=== PATIENT | female | born 1985 | race Caucasian/White ===

== ENCOUNTER 2017-04-17 23:22 | Emergency (ER) | payer MEDICARE, MEDICAID ==
[~2017-04-17] VITALS: Ht 172.7 cm; Wt 90.7 kg
[~2017-04-17 23:22] MED LIST: LORazepam INJ 2 MG/ML (ATIVAN) VIAL ONE
--- OUTSIDE RECORDS SUMMARY | 2017-04-17 23:28 | XMS REPORT ---
Author Author Freeman Bragg [facility] Address [address] [id number] Care Team Providers Care Electrical Cad Designer Name Role Phone Melissa Bragghan Unavailable PROBLEMS Unknown Problems ALLERGIES Unknown Allergies SOCIAL HISTORY No smoking Hx information available PLAN OF CARE VITAL SIGNS MEDICATIONS Medication Instructions Dosage Frequency Start Date End Date Duration Status Hydrocodone-Acetaminophen 5-325 MG Orally NEEDED 1 tablet Active Ibuprofen 800 MG Orally Three times a day 1 tablet 8h Active Lamotrigine 200 MG Orally Three times daily 1 tablet Active Proventil HFA 108 (90 Base) MCG/ACT Inhalation NEEDED 2 puffs as needed Active Betamethasone Dipropionate 0.05 % Externally Once a day 1 application to affected area 24h Active Cephalexin 500 MG Orally Three times daily 1 capsule Active Baclofen 20 MG Orally Three times daily 1 tablet with food or milk Active Omeprazole 40 MG Orally Once a day 1 capsule 24h Active RESULTS No Results PROCEDURES Procedure Date Ordered Related Diagnosis Body Site No Show Charge November 18, 2016 IMMUNIZATIONS No Known Immunizations
--- OUTSIDE RECORDS SUMMARY | 2017-04-17 23:28 | XMS REPORT ---
Author Author Naomi Roberson Organization [facility] Address [address] [place] [id number] Care Team Providers Care Networks Software Consultant Name Role Phone Naomi Roberson PCP Unavailable Allergies and Adverse Reactions Name Reaction Notes Aspirin Morphine Sulfate Tylenol-Codeine #3 Plan of Treatment Planned Activity Comments Planned Date Planned Time Plan/Goal [facility] 04/28/2016 12:00 AM ALPHA 1 ANTITRYPSIN 04/28/2016 12:00 AM AMYLASE. 04/28/2016 12:00 AM PINKY W/TITER 04/28/2016 12:00 AM CERULOPLASMIN. 04/28/2016 12:00 AM IRON TOTAL 04/28/2016 12:00 AM IRON BINDING CAPACITY 04/28/2016 12:00 AM FERRITIN 04/28/2016 12:00 AM LIPASE. 04/28/2016 12:00 AM HEPATIC FUNCTION PANEL 04/28/2016 12:00 AM HEPATITIS PANEL. 04/28/2016 12:00 AM HEPATITIS BE AB 04/28/2016 12:00 AM Hepatitis B virus core antibody assay 04/28/2016 12:00 AM HBV genotype 04/28/2016 12:00 AM HBV genotype 04/28/2016 12:00 AM Anti-mitochondrial antibody titer 04/28/2016 12:00 AM Serum protein electrophoresis and immunofixation electrophoresis 2015 12:00 AM Medications Active Name Start Date Estimated Completion Date SIG Comments Keppra 100 mg/mL oral solution take 1 milliliter by oral route 4 times a day Ambien 10 mg oral tablet take 1 tablet by oral route daily as needed Lidocaine Viscous 2 % mucous membrane solution use as directed by oral route every 3 hours Proventil HFA 90 mcg/actuation inhalation HFA aerosol inhaler inhale 2 puffs (180 mcg) by inhalation route every 6 hours as needed omeprazole 40 mg oral capsule,delayed release(DR/EC) 12/31/2015 12/25/2016 take 1 capsule by oral route daily for 90 days Proventil HFA 90 mcg/actuation inhalation HFA aerosol inhaler 04/17/2016 2 PUFFS EVERY 6 HOURS NEEDED ibuprofen 800 mg oral tablet 05/14/2016 take 1 tablet by oral route 3 times a day baclofen 10 mg oral tablet 07/16/2016 TAKE 1 TABLET BY ORAL ROUTE 4 TIMES A DAY NEEDED FOR 30 DAYS Lamictal 200 mg oral tablet 07/16/2016 take 1 tablet by oral route 3 times a day Bactrim DS 800-160 mg oral tablet 07/20/2016 07/27/2016 take 1 tablet by oral route every 12 hours for 7 days Name Start Date Expiration Date SIG Comments tizanidine 4 mg oral tablet take 1 tablet by oral route 3 times a day Latuda 40 mg oral tablet take 1 tablet (40 mg) by oral route once daily with food (at least 350 calories) gabapentin 300 mg oral capsule take 1 capsule by oral route 3 times a day Tigan 300 mg oral capsule take 1 capsule by oral route 3 times a day Viibryd 40 mg oral tablet take 1 tablet (40 mg) by oral route once daily with food zonisamide 100 mg oral capsule take 4 capsules by oral route daily hydroxyzine HCl 25 mg oral tablet take 1 tablet by oral route 4 times a day Vistaril 25 mg oral capsule take 2 capsules (50 mg) by oral route 4 times per day oxycodone 5 mg oral tablet 12/04/2015 01/03/2016 take 1 tablet by oral route daily as needed for 30 days diazepam 10 mg oral tablet 12/04/2015 01/03/2016 take 1 tablet (10 mg) by oral route 2 times per day for 30 days baclofen 10 mg oral tablet 03/30/2016 04/29/2016 take 1 tablet by oral route 4 times a day as needed for 30 days levofloxacin 500 mg oral tablet 04/16/2016 04/23/2016 take 1 tablet (500 mg) by oral route once daily for 7 days Bactrim DS 800-160 mg oral tablet 06/05/2016 06/12/2016 take 1 tablet by oral route every 12 hours for 7 days mupirocin 2 % topical ointment 06/24/2016 06/29/2016 apply a small amount to the affected area by topical route 3 times per day for 5 days Discontinued Name Start Date Discontinued Date SIG Comments hydrocodone-acetaminophen 10-325 mg oral tablet 12/04/2015 take 1 tablet by oral route every 6 hours as needed for pain Problem List Description Status Onset Chronic viral hepatitis B without delta agent and without coma Active 2015 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 04/16/2016 Vital Signs Date Time BP-Sys(mm[Hg] BP-Penelope(mm[Hg]) HR(bpm) RR(rpm) Temp WT HT HC BMI BSA BMI Percentile O2 Sat(%) 07/20/2016 1:47:00 PM 118 mmHg 78 mmHg 111 bpm 20 rpm 97.9 F 227 lbs 68 in 34.51 kg/m2 2.22 m2 99 % 06/24/2016 10:28:00 AM 106 mmHg 67 mmHg 87 bpm 20 rpm 97.9 F 230 lbs 68 in 34.971 kg/m 2.2373 m 99 % 06/05/2016 9:35:00 AM 122 mmHg 74 mmHg 114 bpm 22 rpm 98.2 F 230.5 lbs 68 in 35.05 kg/m2 2.24 m2 97 % 04/16/2016 9:51:00 AM 117 mmHg 75 mmHg 86 bpm 19 rpm 99.2 F 227 lbs 68 in 34.5149 kg/m 2.2226 m 97 % 01/08/2016 8:56:00 AM 110 mmHg 76 mmHg 90 bpm 16 rpm 99.3 F 232 lbs 68 in 35.28 kg/m2 2.25 m2 97 % 12/04/2015 3:32:00 PM 130 mmHg 80 mmHg 88 bpm 16 rpm 99.5 F 230.125 lbs 68 in 34.99 kg/m 2.2379 m 98 % Social History Name Description Comments Tobacco Current every day smoker Alcohol Light Disabled History of Procedures Date Ordered Description Order Status 12/04/2015 12:00 AM COMPREHEN METABOLIC PANEL Returned 12/04/2015 12:00 AM HEP B SURFACE ANTIBODY Returned 12/04/2015 12:00 AM HEPATITIS B SURFACE AG EIA Returned 12/04/2015 12:00 AM HEPATITIS B DNA AMP PROBE Returned 01/08/2016 12:00 AM HEPATITIS DELTA AGENT ANTBDY Returned 01/08/2016 12:00 AM HEPATITIS DELTA AGENT ANTBDY Returned 01/08/2016 12:00 AM DETECT AGENT NOS DNA AMP Returned 01/08/2016 12:00 AM HEPATITIS B DNA QUANT Returned 01/08/2016 12:00 AM ECHO EXAM OF ABDOMEN Returned 01/08/2016 12:00 AM X-RAY EXAM UNILAT RIBS/CHEST Returned 04/16/2016 12:00 AM GLYCOSYLATED HEMOGLOBIN TEST Returned 04/16/2016 12:00 AM RENAL FUNCTION PANEL Returned 04/28/2016 12:00 AM US EXAM ABDOM COMPLETE Returned Results Summary Data and Description Results 04/16/2016 2:52 PM GLUCOSE 122.0 mg/dLSODIUM 142.0 mmol/LPOTASSIUM 4.10 mmol/ LCHLORIDE 109.0 mmol/LCO2 25.0 mmol/LBUN 13.0 mg/dLCREATININE 0.70 mg/dLALBUMIN 4.10 g/dLCALCIUM 9.10 mg/dLPHOSPHORUS 2.70 mg/dLAGE 30 GFR NonAA 97 GFR AA 118 eGFR >60 mL/min/1.73meGFR AA* >60 HGB A1C 5.20 %Est Avg Glucose 102.5 mg/dL History Of Immunizations Not available. History of Past Illness Name Date of Onset Comments Epilepsy Head trauma bipolar Anxiety OCD Borderline personality disorder Depression Asthma Seizure disorder Hepatitis B Infection Chronic viral hepatitis B without delta agent and without coma 04/16/2016 Nonintractable generalized idiopathic epilepsy without status epilepticus 05/2015 Hepatitis B infection without delta agent without hepatic coma, unspecified chronicity Dec 04 2015 3:35PM Recurrent Seizure disorder Dec 04 2015 3:35PM Hepatitis B infection without delta agent without hepatic coma, unspecified chronicity Jan 08 2016 8:58AM Rib pain Jan 08 2016 8:58AM Chronic viral hepatitis B without delta agent and without coma Apr 16 2016 10: 02AM Nonintractable generalized idiopathic epilepsy without status epilepticus Apr 16 2016 10:02AM Hyperglycemia Apr 16 2016 10:02AM Hypokalemia Apr 16 2016 10:02AM Acute non-recurrent maxillary sinusitis Apr 16 2016 10:02AM Hepatitis B with hepatitis delta Apr 28 2016 3:39PM Cellulitis, abdominal wall Jun 05 2016 9:40AM Folliculitis Jun 24 2016 10:34AM Lump on neck Jun 24 2016 10:34AM Abscess Jul 20 2016 1:51PM Payers Insurance Name Company Name Plan Name Plan Number Policy Number Policy Group Number Start Date Medicare Part B [employer] [place] [id number] Wednesday, 2015 [facility] Plan of [id number] May History of Encounters Visit Date Visit Type Provider 07/20/2016 Office visit Naomi Roberson MD 06/24/2016 Office visit Naomi Roberson MD 06/05/2016 Office visit Naomi Roberson MD 04/16/[address] Dylan Morejon MD 01/08/2016 Office visit 01/08/[address] Dylan Morejon MD 12/04/2015 Office visit 12/04/[address] Dylan Morejon MD
--- OUTSIDE RECORDS SUMMARY | 2017-04-17 23:28 | XMS REPORT ---
Author Author Dylan Morejon [facility] Address [address] [place], [place] [id number] Care Team Providers Care Fuel Cell Engineer Name Role Phone Dylan Morejon PCP Allergies and Adverse Reactions Name Reaction Notes [...] electrophoresis and immunofixation electrophoresis 2015 12:00 AM US ABDOMINAL COMPLETE 04/28/2016 12:00 AM Medications Active Name Start Date Estimated Completion Date SIG Comments Lamictal 200 mg oral tablet take 1 tablet by oral route 3 times a day Keppra 100 mg/mL oral solution take 1 milliliter by oral route 4 times a day Ambien 10 mg oral tablet take 1 tablet by oral route daily as needed Lidocaine Viscous 2 % mucous membrane solution use as directed by oral route every 3 hours ibuprofen 800 mg oral tablet take 1 tablet by oral route 3 times a day Proventil HFA 90 mcg/actuation inhalation HFA aerosol inhaler inhale 2 puffs (180 mcg) by inhalation route every 6 hours as needed omeprazole 40 mg oral capsule,delayed release(DR/EC) 12/31/2015 12/25/2016 take 1 capsule by oral route daily for 90 days baclofen 10 mg oral tablet 03/30/2016 04/29/2016 take 1 tablet by oral route 4 times a day as needed for 30 days baclofen 10 mg oral tablet 04/02/2016 TAKE 1 TABLET BY ORAL ROUTE 4 TIMES A DAY NEEDED FOR 30 DAYS Proventil HFA 90 mcg/actuation inhalation HFA aerosol inhaler 04/17/2016 2 PUFFS EVERY 6 HOURS NEEDED Name Start Date Expiration Date SIG Comments [...] 2 times per day for 30 days levofloxacin 500 mg oral tablet 04/16/2016 04/23/2016 take 1 tablet (500 mg) by oral route once daily for 7 days Discontinued Name Start Date Discontinued Date [...] HC BMI BSA BMI Percentile O2 Sat(%) 04/16/2016 9:51:00 AM 117 mmHg 75 mmHg 86 bpm 19 rpm 99.2 F 227 lbs 68 in 34.51 kg/m2 2.22 m2 97 % 01/08/2016 8:56:00 AM 110 mmHg 76 mmHg 90 bpm 16 rpm 99.3 F 232 lbs 68 in 35.2751 kg/m 2.247 m 97 % 12/04/2015 3:32:00 PM 130 mmHg 80 mmHg 88 bpm 16 rpm 99.5 F 230.125 lbs 68 in 34.99 kg/m2 2.24 m2 98 % Social History Name Description Comments [...] 04/16/2016 12:00 AM RENAL FUNCTION PANEL Returned Results Summary Data and Description Results [...] with hepatitis delta Apr 28 2016 3:39PM Payers Insurance Name Company Name Plan Name Plan Number Policy Number Policy Group Number Start Date Medicare Part B [employer] [place] [id number] Wednesday, 2015 [facility] Plan of [id number] May History of Encounters Visit Date Visit Type Provider 04/16/[address] Dylan Morejon MD 01/08/2016 Office visit 01/08/[address] Dylan Morejon MD 12/04/2015 Office visit 12/04/[address] Dylan Morejon MD
--- OUTSIDE RECORDS SUMMARY | 2017-04-17 23:28 | XMS REPORT ---
Author Author Zahida Baxter [facility] Address [address] [place], [place] [id number] Care Team Providers Care Business Administration Program Chair Name Role Phone Zahida Baxter PCP Unavailable Allergies and Adverse Reactions Name [...] electrophoresis and immunofixation electrophoresis 2015 12:00 AM Polysomnography 09/15/2016 12:00 AM irregular nevi Medications Active Name Start Date Estimated Completion Date SIG Comments Ambien 10 mg oral tablet take 1 tablet by oral route daily as needed Lidocaine Viscous 2 % mucous membrane solution use as directed by oral route every 3 hours Proventil HFA 90 mcg/actuation inhalation HFA aerosol inhaler inhale 2 puffs (180 mcg) by inhalation route every 6 hours as needed baclofen 20 mg oral tablet 08/05/2016 02/01/2017 take 1 tablet (20 mg) by oral route 3 times per day for 90 days ibuprofen 800 mg oral tablet 09/15/2016 11/14/2016 take 1 tablet by oral route 3 for 30 days Lamictal 200 mg oral tablet 09/15/2016 01/13/2017 take 1 tablet by oral route 3 for 30 days omeprazole 40 mg oral capsule,delayed release(DR/EC) 09/15/2016 09/10/2017 take 1 capsule by oral route daily for 90 days Proventil HFA 90 mcg/actuation inhalation HFA aerosol inhaler 09/15/20162016 2 PUFFS EVERY 6 HOURS NEEDED for 30 days Bactrim DS 800-160 mg oral tablet 11/03/2016 11/13/2016 take 1 tablet by oral route 2 times per day for 10 days Name Start Date Expiration Date SIG [...] 3 times per day for 5 days Bactrim DS 800-160 mg oral tablet 07/20/2016 07/27/2016 take 1 tablet by oral route every 12 hours for 7 days hydrocodone-acetaminophen 5-325 mg oral tablet 08/05/2016 09/04/2016 take 1 tablet by oral route every 6 hours as needed for pain for 30 days triamcinolone acetonide 0.1 % topical ointment 08/05/2016 08/19/2016 apply a thin layer to the affected area(s) by topical route 2 times per day for 7 days Discontinued Name Start Date Discontinued Date SIG Comments Keppra 100 mg/mL oral solution 09/15/2016 take 1 milliliter by oral route 4 times a day hydrocodone-acetaminophen 10-325 mg oral tablet 12/04/2015 take 1 tablet by oral route every 6 hours as needed for pain Problem List Description Status Onset Chronic viral hepatitis B without delta agent and without coma Active 2015 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 04/16/2016 Vital Signs Date Time BP-Sys(mm[Hg] BP-Penelope(mm[Hg]) HR(bpm) RR(rpm) Temp WT HT HC BMI BSA BMI Percentile O2 Sat(%) 11/03/2016 2:36:00 PM 128 mmHg 78 mmHg 82 bpm 20 rpm 99.4 F 227.25 lbs 68 in 34.55 kg/m2 2.22 m2 99 % 09/15/2016 11:19:00 AM 118 mmHg 72 mmHg 89 bpm 20 rpm 99.1 F 230.5 lbs 68 in 35.047 kg/m 2.2397 m 98 % 08/18/2016 8:31:00 AM 120 mmHg 76 mmHg 70 bpm 20 rpm 99.2 F 231.5 lbs 68 in 35.20 kg/m2 2.24 m2 98 % 08/05/2016 10:09:00 AM 118 mmHg 74 mmHg 84 bpm 99.2 F 232.125 lbs 68 in 35.2941 kg/m 2.2476 m 99 % 07/20/2016 1:47:00 PM 118 mmHg 78 mmHg [...] 12:00 AM US EXAM ABDOM COMPLETE Returned 07/20/2016 12:00 AM DRAINAGE OF SKIN ABSCESS Reviewed 08/06/2016 12:00 AM ROUTINE VENIPUNCTURE Reviewed 08/05/2016 12:00 AM ASSAY THYROID STIM HORMONE Reviewed 08/05/2016 12:00 AM COMPREHEN METABOLIC PANEL Reviewed 08/18/2016 12:00 AM MRI BRAIN STEM W/O DYE Reviewed 08/18/2016 12:00 AM US EXAM OF HEAD AND NECK Reviewed 09/25/2016 12:00 AM EXTREMITY STUDY Reviewed Results Summary Date and Description Results 04/16/2016 2:52 PM GLUCOSE 122.0 mg/dLSODIUM 142.0 mmol/LPOTASSIUM 4.10 mmol/ LCHLORIDE 109.0 mmol/LCO2 25.0 mmol/LBUN 13.0 mg/dLCREATININE 0.70 mg/dLALBUMIN 4.10 g/dLCALCIUM 9.10 mg/dLPHOSPHORUS 2.70 mg/dLAGE 30 GFR NonAA 97 GFR AA 118 eGFR >60 mL/min/1.73meGFR AA* >60 HGB A1C 5.20 %Est Avg Glucose 102.5 mg/dL 08/06/2016 10:45 AM GLUCOSE 134.0 mg/dLSODIUM 140.0 mmol/LPOTASSIUM 4.0 mmol/ LCHLORIDE 109.0 mmol/LCO2 20.0 mmol/LBUN 19.0 mg/dLCREATININE 0.80 mg/dLSGOT/ AST 12.0 IU/LSGPT/ALT 13.0 IU/LALK PHOS 65.0 IU/LTOTAL PROTEIN 6.80 g/dLALBUMIN 4.10 g/dLTOTAL BILI 0.30 mg/dLCALCIUM 9.10 mg/dLAGE 31 GFR NonAA 83 GFR AA 101 eGFR >60 mL/min/1.73meGFR AA* >60 TSH 0.880 uIU/mL History Of Immunizations Not available. History of [...] 2016 10:34AM Abscess Jul 20 2016 1:51PM Seizure disorder Aug 06 2016 11:32AM Chronic viral hepatitis B without delta agent and without coma Aug 05 2016 10: 17AM Nonintractable generalized idiopathic epilepsy without status epilepticus Aug 05 2016 10:17AM Skin lesions Aug 05 2016 10:17AM Chronic fatigue Aug 05 2016 10:17AM Atopic neurodermatitis Aug 05 2016 10:17AM Cigarette nicotine dependence without complication Aug 18 2016 8:36AM Seizure Disorder Aug 18 2016 8:36AM Migraine without aura and without status migrainosus, not intractable Aug 18 2016 8:36AM Tremor Aug 18 2016 8:36AM Lymphadenopathy Aug 18 2016 8:36AM Chronic viral hepatitis B without delta agent and without coma Aug 18 2016 8: 36AM Skin lesions Aug 18 2016 8:36AM Cigarette nicotine dependence without complication Sep 15 2016 11:32AM Seizure Disorder Sep 15 2016 11:32AM Mixed incontinence (female)(male) Sep 15 2016 11:32AM Varicose veins of both lower extremities Sep 15 2016 11:32AM Abscess Nov 03 2016 2:39PM Payers Insurance Name Company Name Plan Name Plan Number Policy Number Policy Group Number Start Date Medicare Part B [employer] [place] [id number] Wednesday, 2015 [facility] [place] [id number] May History of Encounters Visit Date Visit Type Provider 11/03/2016 Office visit Zahida Baxter MD 09/15/2016 Office visit Zahida Baxter MD 08/18/2016 Office visit Zahida Baxter MD 08/06/2016 Laboratory Naomi Roberson MD 08/05/[address] Dylan Morejon MD 07/20/2016 Office visit Naomi Roberson MD 06/24/2016 Office visit Naomi Roberson MD 06/05/2016 Office visit Naomi Roberson MD 04/16/[address] Dylan Morejon MD 01/08/2016 Office visit 01/08/[address] Dylan Morejon MD 12/04/2015 Office visit 12/04/[address] Dylan Morejon MD
--- OUTSIDE RECORDS SUMMARY | 2017-04-17 23:29 | XMS REPORT | Continuity of Care Document ---
Author Author [facility] Organization [facility] Address [address] [place] [address] Phone Unavailable Care Team Providers Care Manager Call Center Name Role Phone DEE BAXTER MD PCP Insurance Providers Guarantor Joleen Jeffries Address [address] [place] [address] Email [email or web address] Payer Medicare Policy Number [id number] Subscriber's Name Joleen Jeffries Relationship 18 Self / Same As Patient Effective Date 15 Payer [facility] Comm Plan Policy Number [id number] Subscriber's Name Scarlett Jeffriesmarina Melendez Relationship 18 Self / Same As Patient Advance Directives Directive Response Recorded Date/Time Living Will No 01/13/16 9:42am Advance Directives No 04/10/15 8:12pm Advance Directive on File No 01/20/17 5:59am Durable POA for HC No 01/20/17 5:59am Power of Spectrographer No 01/20/17 5:59am Organ Donor No 01/20/17 5:59am Living Will No 01/20/17 5:59am Chief Complaint and Reason for Visit Chief Complaint Seizure Reason for Visit [id number] Problems Medical Problem Onset Date Status Cyst of ovary, right Unknown Acute Epilepsy seizure, generalized, convulsive Unknown Acute Headache Unknown Acute Hypokalemia Unknown Acute Iliofemoral ligament sprain of hip Unknown Acute Low back pain Unknown Acute Migraine headache without aura Unknown Acute Neck muscle spasm Unknown Acute Neck muscle strain Unknown Acute Sacroiliac joint pain Unknown Acute Sciatic neuritis Unknown Acute Sphenoid sinusitis Unknown Acute Medications Current Home Medications Medication Dose Units Route Directions Days Qty Instructions Start Date Albuterol Sulfate (Ventolin Hfa Inhaler) 1 Puff Inhaler 1 Puff Inhalation As Needed as needed for Shortness Of Breath 30 Days Baclofen (Baclofen Tablet) 20 Mg Tablet 20 Mg Oral Twice A Day for Muscle Spasm Lamotrigine (Lamotrigine Odt) 100 Mg Tab.rapdis 100 Mg Oral Once A Day for Seizure Lidocaine Hcl (Lidocaine Viscous) 20 Mg/1 Ml Solution 5 Ml Mucous Mem Every 2 Hours While Awake as needed for Mouth Pain 120 Milliliter Omeprazole (Prilosec) 40 Mg Capsule.dr 40 Mg Oral Once A Day for Gerd Past Home Medications Medication Directions Ordered Status Acetaminophen/Hydrocodone Bitart (Mallard 5/325 Mg Tablet) 1 Each Tablet, 1 Each Oral Every Eight Hours as needed for Pain 04/10/15 Discontinued Clonazepam (Klonopin) 1 Mg Tablet, 1 Mg Oral Three Times A Day for Anxiety Discontinued Clonazepam 1 Mg Tab.rapdis, 1 Mg Oral Three Times A Day 08/11/15 Discontinued Cyclobenzaprine Hcl (Flexeril) 10 Mg Tablet, 10 Mg Oral Three Times A Day 04/01 Discontinued Diazepam (Valium) 10 Mg Tablet, 10 Mg Oral Every 6 To 8 Hours As Needed as needed for Moderate Pain 11/25/15 Discontinued Hydrocodone Bit/Acetaminophen (Mallard 10/325 Mg Tablet) 1 Tab Tablet, 0.5-1 Tab Oral Every 6 To 8 Hours As Needed as needed for Pain 03/28/16 Discontinued Hydrocodone/Acetaminophen (Lortab 10-325 Mg Tablet) 1 Each Tablet, 1 Each Oral Every 6 To 8 Hours As Needed as needed for Pain 11/25/15 Discontinued Hydrocodone/Acetaminophen (Lortab 7.5-325 Mg Tablet) 1 Each Tablet, 1 Each Oral Every 6 To 8 Hours As Needed as needed for Severe Pain 02/25/16 Discontinued Hydrocodone/Acetaminophen (Lortab 5-325 Mg Tablet) 1 Each Tablet, 1 Each Oral Every 4 To 6 Hours As Needed as needed for Pain 08/26/15 Discontinued Ibuprofen 800 Mg Tablet, 800 Mg Oral Twice A Day for Pain Discontinued Ibuprofen 800 Mg Tablet, 800 Mg Oral As Needed as needed for Pain Discontinued Lamotrigine (Lamictal Odt) 100 Mg Tab.rapdis, 200 Mg Oral Three Times A Day for Seizure Discontinued Lamotrigine (Lamictal) 150 Mg Tablet, 150 Mg Oral Three Times A Day for Seizure Discontinued Levetiracetam (Spritam) 1,000 Mg Tab.susp, 1000 Mg Oral Three Times A Day for Seizure Discontinued Lidocaine Hcl (Lidocaine Viscous) 20 Mg/1 Ml Solution, 20 Mg Mucous Mem Every 4 To 6 Hours As Needed for Mouth Pain Discontinued Lidocaine Hcl (Lidocaine Viscous) 20 Mg/1 Ml Solution, 20 Mg Mucous Mem Every 4 To 6 Hours As Needed as needed for Pain 08/11/15 Discontinued Lurasidone Hcl (Latuda) 40 Mg Tablet, 40 Mg Oral Once A Day for Anxiety Discontinued Ondansetron (Ondansetron Odt) 4 Mg Tab.rapdis, 4 Mg Oral Every 6 To 8 Hours As Needed as needed for Nausea / Vomiting 04/10/15 Discontinued Promethazine Hcl (Phenergan 25 Mg Tablet) 25 Mg Tablet, 25 Mg Oral Every 6 To 8 Hours As Needed as needed for Nausea / Vomiting 02/25/16 Discontinued Vibrent , Oral Once A Day for Anxiety Discontinued Vilazodone Hydrochloride (Viibryd) 40 Mg Tablet, 40 Mg Oral Once A Day for Anxiety Discontinued Social History Social History Problem Response Recorded Date/Time Onset Date Status Smoking Status Current every day smoker 01/20/2017 5:53am Not Applicable Not Applicable Smoked in the last 12 months? Y - today 01/20/2017 5:53am Not Applicable Not Applicable Do you dip or chew tobacco? N - none 01/20/2017 5:53am Not Applicable Not Applicable Approx how many cigs per day? 1 01/20/2017 5:53am Not Applicable Not Applicable Level of Dependence Moderate 01/20/2017 5:53am Not Applicable Not Applicable Former smoker, last day smoked? no 01/20/2017 5:53am Not Applicable Not Applicable Smoking Status Start Date Stop Date Current every day smoker Hospital Discharge Instructions No hospital discharge instruction information available. Plan of Care Discharge Date 01/20/17 7:50am Disposition 01 D/C HOME Condition at Discharge Stable Instructions/Education Provided Recurrent Seizures in Adults (ED) Forms Provided ER Discharge Phone Call Check Prescriptions See Medication Section Referrals DEE BAXTER MD Address: [place] [phone] Additional Instructions/Education Contact Dr. Baxter's office this am for follow up appt. Continue current medications. No driving for at least 4 hours. Mouth rinses at least twice per day with mouth wash of choice for sore on tongue. Tylenol 1000mg q 4 hrs and Motrin 800mg q 8 hrs for pain. Reference Links Functional Status Query Response Date Recorded Activities of Daily Living Performs w/o Assistance January 20, 2017 5:59am Cognitive Function Intact January 20, 2017 5:59am Allergies, Adverse Reactions, Alerts Allergen Type Severity Reaction Status Last Updated Morphine Allergy Intermediate SWELLING AT INJECTION SITE Active 01/20/17 Aspirin Allergy Severe VOMIT, CONVUSIONS Active 01/20/17 Immunizations Query Response on File Recorded Date/Time Hx Influenza Vaccination No 01/20/17 6:42am Hx Pneumococcal Vaccination No 01/20/17 6:42am Hx Tetanus, Diphtheria Vaccination No 01/20/17 6:42am Vital Signs Acute Vital Signs Vital Response Date/Time Temperature (Fahrenheit) 98.7 degrees F (97.6 - 99.5) 01/20/2017 5:25am Temperature (Calculated Celsius) 37.81354 degrees C (36.4 - 37.5) 01/20/2017 5:25am Temperature Source Temporal Artery Scan 01/20/2017 5:25am Pulse Pulse Ox Pulse Rate (adult) 69 beats per minute (60 - 90) 01/20/2017 7:50am Pulse Location Modifier Left 01/20/2017 7:50am Oxygen Saturation Respiratory Rate 18 breaths per minute (12 - 24) 01/20/2017 7:50am O2 Sat by Pulse Oximetry 98 % (90 - 100) 01/20/2017 7:50am Blood Pressure 87/45 mm Hg 01/20/2017 7:50am Blood Pressure Mean 59 mm Hg 01/20/2017 7:50am Height 5 ft 8 in 01/20/2017 5:55am Weight 215 lb 01/20/2017 5:55am Body Mass Index 32.7 kg/m^2 01/20/2017 5:55am Results Laboratory Results Test Name Result Units Flags Reference Collection Date/Time Result Date/ Time Comments Magnesium Level 1.8 mg/dl 1.6-2.3 03/28/2016 7:16pm 03/28/2016 7:54pm Ferritin 105 ng/mL 8-252 05/05/2016 9:0905/05/2016 10:43am Iron Level 53 ug/dL 37-170 05/05/2016 9:09am 05/05/2016 10:43am Total Iron Binding Capacity 318 ug/dL 250.0-450.0 05/05/2016 9:09 10:43am Percent Iron Saturation 16.7 % L 20-50 05/05/2016 9:09am 05/05/2016 10: 43am Direct Bilirubin 0.1 mg/dL 0-0.3 05/05/2016 9:09am 05/05/2016 10:43am Amylase Level 58 U/L 30-110 05/05/2016 9:09am 05/05/2016 10:43am Lipase 150 U/L 23-300 05/05/2016 9:09am 05/05/2016 10:43am White Blood Count 7.5 x10^3/uL 4.0-11.0 01/20/2017 5:57am 01/20/2017 6: 12am Red Blood Count 4.67 10^6/uL 3.80-5.80 01/20/2017 5:57am 01/20/2017 6: 12am Hematocrit 40.5 % 37.0-47.0 01/20/2017 5:57am 01/20/2017 6:12am Mean Corpuscular Volume 87 fl 76-96 01/20/2017 5:57am 01/20/2017 6: 12am Mean Corpuscular Hemoglobin 29.3 pg 27.0-32.0 01/20/2017 5:57am 2016 6:12am Mean Corpuscular Hemoglobin Concent 33.8 g/dl 31.0-35.0 01/20/2017 5: 57am 01/20/2017 6:12am Red Cell Distribution Width 14.4 % 11.0-16.0 01/20/2017 5:57am 2016 6:12am Platelet Count 225 10^3/uL 150-500 01/20/2017 5:57am 01/20/2017 6:12am Mean Platelet Volume 10.8 fl H 6.0-10.0 01/20/2017 5:57am 01/20/2017 6: 12am Neutrophils (%) (Auto) 62.4 % 45.0-70.0 01/20/2017 5:57am 01/20/2017 6: 12am Lymphocytes (%) (Auto) 24.3 % 20.0-40.0 01/20/2017 5:57am 01/20/2017 6: 12am Monocytes (%) (Auto) 9.2 % 3.0-10.0 01/20/2017 5:57am 01/20/2017 6: 12am Eosinophils (%) (Auto) 3.7 % 1.0-5.0 01/20/2017 5:57am 01/20/2017 6: 12am Basophils (%) (Auto) 0.4 % 0.0-0.5 01/20/2017 5:57am 01/20/2017 6:12am Neutrophils # (Auto) 4.69 x10^3/uL 2.00-7.50 01/20/2017 5:57am 2016 6:12am Lymphocytes # (Auto) 1.83 x10^3/uL 1.50-4.00 01/20/2017 5:57am 2016 6:12am Monocytes # (Auto) 0.69 x10^3/uL 0.20-0.80 01/20/2017 5:57am 2016 6:12am Eosinophils # (Auto) 0.28 x10^3/uL 0.04-0.40 01/20/2017 5:57am 2016 6:12am Basophils # (Auto) 0.03 x10^3/uL 0.02-0.10 01/20/2017 5:57am 2016 6:12am Volume Urine Centrifuged 12 ml 01/20/2017 7:01/20/2017 7:38am Test based ON 12 ml volume. Urine Color YELLOW STRAW 01/20/2017 7:28am 01/20/2017 7:38am Urine Clarity CLEAR CLEAR 01/20/2017 7:2801/20/2017 7:38am Urine Specific [place] 1.025 A 1.010-1.020 01/20/2017 7:282016 7:38am Urine pH 6.0 5.0-6.0 01/20/2017 7:2801/20/2017 7:38am Urine Leukocyte Esterase NEGATIVE NEGATIVE 01/20/2017 7:282016 7:38am Urine Nitrite NEGATIVE NEGATIVE 01/20/2017 7:2801/20/2017 7:38am Urine Protein NEGATIVE NEGATIVE 01/20/2017 7:2801/20/2017 7:38am Urine Glucose (UA) NEGATIVE NEGATIVE 01/20/2017 7:2801/20/2017 7: 38am Urine Ketones NEGATIVE NEGATIVE 01/20/2017 7:2801/20/2017 7:38am Urine Urobilinogen 0.2 0.2-1.0 01/20/2017 7:2801/20/2017 7:38am Urine Bilirubin NEGATIVE NEGATIVE 01/20/2017 7:2801/20/2017 7: 38am Urine Occult Blood NEGATIVE NEGATIVE 01/20/2017 7:2801/20/2017 7: 38am Urine WBC 0-1 #/HPF OCCASIONAL 01/20/2017 7:2801/20/2017 7:38am Urine RBC NONE #/HPF OCCASIONAL 01/20/2017 7:2801/20/2017 7:38am Urine Epithelial Cells FEW #/HPF A OCCASIONAL 01/20/2017 7:282016 7:38am Urine Other Casts NONE #/LPF NEGATIVE 01/20/2017 7:2801/20/2017 7: 38am Urine Bacteria FEW A NONE 01/20/2017 7:2801/20/2017 7:38am Urine Other Crystals NONE NONE 01/20/2017 7:2801/20/2017 7:38am Urine Mucus FEW NONE 01/20/2017 7:2801/20/2017 7:38am Urine Culture Indicated NO NO 01/20/2017 7:2801/20/2017 7:38am Sodium Level 142 mmol/L 137-145 01/20/2017 5:57am 01/20/2017 6:40am Potassium Level 3.9 mmol/L 3.5-5.1 01/20/2017 5:57am 01/20/2017 6:40am Carbon Dioxide Level 26.3 mmol/L 22-30 01/20/2017 5:57am 01/20/2017 6: 40am Anion Gap 13.6 mEq/L 8-16 01/20/2017 5:57am 01/20/2017 6:40am Blood Urea Nitrogen 13 mg/dL 7-17 01/20/2017 5:57am 01/20/2017 6:40am Creatinine 0.81 mg/dl 0.52-1.04 01/20/2017 5:57am 01/20/2017 6:40am Est Glomerular Filtrat Rate mL/min 81.43 01/20/2017 5:57am 2016 6:40am GFR NORMALS: Stage I: GFR >90 Stage II GFR 60-89 Stage III GFR 30-60 Stage IV: GFR 15-29 Stage V: GFR <15 BUN/Creatinine Ratio 16.04 01/20/2017 5:57am 01/20/2017 6:40am Glucose Level 113 mg/dL H 74-106 01/20/2017 5:57am 01/20/2017 6:40am Calculated Osmolality 294.6 mosm/kg 273-304 01/20/2017 5:57am 2016 6:40am Calcium Level 8.5 mg/dL 8.4-10.2 01/20/2017 5:5701/20/2017 6:40am Total Bilirubin 0.2 mg/dL 0.2-1.3 01/20/2017 5:57am 01/20/2017 6:40am Aspartate Amino Transf (AST/SGOT) 17 U/L 14-36 01/20/2017 5:57am 2016 6:40am Alanine Aminotransferase (ALT/SGPT) 16 U/L 9-52 01/20/2017 5:57am 01/20 6:40am Alkaline Phosphatase 66 U/L 38-126 01/20/2017 5:57am 01/20/2017 6:40am Total Protein 7.0 g/dL 6.4-8.4 01/20/2017 5:57am 01/20/2017 6:40am Albumin 3.4 g/dL 3.4-5.5 01/20/2017 5:57am 01/20/2017 6:40am Globulin 3.6 H 2.3-3.5 01/20/2017 5:57am 01/20/2017 6:40am Albumin/Globulin Ratio 0.944 01/20/2017 5:57am 01/20/2017 6:40am Procedures Procedure Status Date Provider(s) ROUTINE VENIPUNCTURE Completed 03/28/16 CT HEAD/BRAIN W/O DYE Completed 03/28/16 COMPREHEN METABOLIC PANEL Completed 03/28/16 ASSAY OF MAGNESIUM Completed 03/28/16 CHORIONIC GONADOTROPIN ASSAY Completed 03/28/16 COMPLETE CBC W/AUTO DIFF WBC Completed 03/28/16 EMERGENCY DEPT VISIT Completed 03/28/16 NON-COVERED ITEM OR SERVICE Completed INJECTION, KETOROLAC TROMETHAMINE, PER 15 MG Completed INJECTION, ORPHENADRINE CITRATE, UP TO 60 MG Completed EMERGENCY DEPT VISIT Completed 03/28/16 THER/PROPH/DIAG INJ IV PUSH Completed 03/28/16 TX/PRO/DX INJ NEW DRUG ADDON Completed 03/28/16 HYDRATE IV INFUSION ADD-ON Completed 03/28/16 ROUTINE VENIPUNCTURE Completed 05/05/16 US EXAM ABDOM COMPLETE Completed 05/05/16 HEPATIC FUNCTION PANEL Completed 05/05/16 ASSAY OF AMYLASE Completed 05/05/16 ANGIOTENSIN I ENZYME TEST Completed 05/05/16 ASSAY OF CERULOPLASMIN Completed 05/05/16 ASSAY OF FERRITIN Completed 05/05/16 IRON BINDING TEST Completed 05/05/16 ASSAY OF LIPASE Completed 05/05/16 PROTEIN E-PHORESIS SERUM Completed 05/05/16 ANTINUCLEAR ANTIBODIES Completed 05/05/16 FLUORESCENT ANTIBODY SCREEN Completed 05/05/16 IMMUNODIFFUSION WANDA Completed 05/05/16 IMMUNOFIX E-PHORESIS SERUM Completed 05/05/16 EMERGENCY DEPT VISIT Completed 05/27/16 THER/PROPH/DIAG INJ IA Completed 07/17/16 EMERGENCY DEPT VISIT Completed 07/17/16 EMERGENCY DEPT VISIT Completed 07/17/16 INJECTION, HYDROMORPHONE, UP TO 4 MG Completed ROUTINE VENIPUNCTURE Completed 11/04/16 COMPREHEN METABOLIC PANEL Completed 11/04/16 URINALYSIS NONAUTO W/SCOPE Completed 11/04/16 COMPLETE CBC W/AUTO DIFF WBC Completed 11/04/16 URINE BACTERIA CULTURE Completed 11/04/16 EMERGENCY DEPT VISIT Completed 11/04/16 INJECTION, HYDROMORPHONE, UP TO 4 MG Completed INJECTION, METOCLOPRAMIDE HCL, UP TO 10 MG Completed INFUSION, NORMAL SALINE SOLUTION , 1000 CC Completed EMERGENCY DEPT VISIT Completed 11/04/16 THER/PROPH/DIAG INJ IV PUSH Completed 11/04/16 TX/PRO/DX INJ NEW DRUG ADDON Completed 11/04/16 HYDRATE IV INFUSION ADD-ON Completed 11/04/16 HYDRATE IV INFUSION ADD-ON Completed 11/04/16 Insertion of intravenous saline lock Active 03/28/16 TRAM WALSH APRN Computed tomography of head or brain without contrast Completed 03/28/16 TRAM WALSH APRN US abdomen complete Completed 05/05/16 RAUL MORA MD Insertion of intravenous saline lock Active 11/04/16 ALLEN PRESTON APRN Insertion of intravenous saline lock Active 01/20/17 DANIELLA EARL PA-C Encounters Encounter Location Arrival/Admit Date Discharge/Depart Date Attending Provider Departed Emergency Room [facility] 01/20/17 5:20am 01/20/17 7: 50am CANDICE WILLSON APRN Departed Emergency Room [facility] 11/04/16 1:55pm 11/04/16 5: 00pm ALLEN PRESTON APRN Departed Emergency Room [facility] 07/17/16 11:10am 07/17/16 1: 30pm BELEN CANCINO MD Departed Emergency Room [facility] 05/27/16 10:00am 05/27/16 12: 00pm YULIET ABDALLA [facility] 05/05/16 8:41am RAUL MORA MD Departed Emergency Room [facility] 03/28/16 7:10pm 03/28/16 9: 05pm TRAM WALSH APRN Recent Diagnosis
--- OUTSIDE RECORDS SUMMARY | 2017-04-17 23:29 | XMS REPORT ---
Author Author Zahida Baxter [facility] Address [address] [place], [place] [address] Care Team Providers Care Pneumatic Deicer Inspector Name Role Phone Zahida Baxter PCP Unavailable [...] electrophoresis and immunofixation electrophoresis 2015 12:00 AM MRI BRAIN INC STEM W/O CONTRAST 08/18/2016 12:00 AM US SOFT TISSUES HEAD AND NECK 08/18/2016 12:00 AM Medications Active Name Start Date [...] inhalation route every 6 hours as needed Proventil HFA 90 mcg/actuation inhalation HFA aerosol inhaler 04/17/2016 2 PUFFS EVERY 6 HOURS NEEDED ibuprofen 800 mg oral tablet 05/14/2016 take 1 tablet by oral route 3 times a day Lamictal 200 mg oral tablet 07/16/2016 take 1 tablet by oral route 3 times a day baclofen 20 mg oral tablet 08/05/2016 02/01/2017 take 1 tablet (20 mg) by oral route 3 times per day for 90 days omeprazole 40 mg oral capsule,delayed release(DR/EC) 08/05/2016 07/31/2017 take 1 capsule by oral route daily for 90 days hydrocodone-acetaminophen 5-325 mg oral tablet 08/05/2016 09/04/2016 take 1 tablet by oral route every 6 hours as needed for pain for 30 days triamcinolone acetonide 0.1 % topical ointment 08/05/2016 08/19/2016 apply a thin layer to the affected area(s) by topical route 2 times per day for 7 days Name Start Date Expiration [...] route every 12 hours for 7 days Discontinued Name Start Date [...] HC BMI BSA BMI Percentile O2 Sat(%) 08/18/2016 8:31:00 AM 120 mmHg 76 mmHg [...] 08/05/2016 12:00 AM COMPREHEN METABOLIC PANEL Reviewed Results Summary Data and Description Results 04/16/2016 [...] without coma Aug 18 2016 8: 36AM Payers Insurance Name Company Name Plan Name Plan Number Policy Number Policy Group Number Start Date Medicare Part B [employer] [place] [id number] Wednesday, 2015 [facility] Plan of [id number] May History of Encounters Visit Date Visit Type Provider 08/18/2016 Office visit Zahida Baxter MD 08/06/2016 [...]
--- OUTSIDE RECORDS SUMMARY | 2017-04-17 23:29 | XMS REPORT | Continuity of Care Document ---
Author Author [facility] Organization [facility] Address [address] [place] [address] Phone Unavailable Care Team Providers Care Hydroelectric Machinery Mechanic Name Role Phone RAUL MORA MD PCP Insurance Providers Payer Name Policy Number Subscriber Name Relationship [facility] Comm Plan [id number] Joleen Jeffries 16 Self / Same As Patient Advance Directives Directive Response Recorded Date/Time Living Will No 01/13/16 9:42am Advance Directives No 04/10/15 8:12pm Advance Directive on File No 02/24/16 11:51pm Durable POA for HC No 02/24/16 11:51pm Power of Inclusion Specialist No 02/24/16 11:51pm Organ Donor No 02/24/16 11:51pm Living Will No 02/24/16 11:51pm Chief Complaint and Reason for Visit Chief Complaint Seizure Reason for Visit [id number] Problems Active Problems Medical Problem Onset Date Status Cyst of ovary, right Unknown Acute Epilepsy seizure, generalized, convulsive Unknown Acute Headache Unknown Acute Low back pain Unknown Acute Neck muscle spasm Unknown Acute Neck muscle strain Unknown Acute Sacroiliac joint pain Unknown Acute Sciatic neuritis Unknown Acute Medications Current Home Medications Medication Dose Units Route Directions Days/Qty Instructions Start Date Lamotrigine 100 Mg 200 Mg Oral Three Times A Day for Seizure Omeprazole 40 Mg 40 Mg Oral Once A Day for Gerd 11/25/15 Baclofen 20 Mg 20 Mg Oral Once A Day for Muscle Spasm 11/25/15 Diazepam 10 Mg 10 Mg Oral Every 6 To 8 Hours As Needed as needed for Moderate Pain 10 11/25/15 Hydrocodone/Acetaminophen 1 Each 1 Each Oral Every 6 To 8 Hours As Needed as needed for Pain 8 11/25/15 Vilazodone Hydrochloride 40 Mg 40 Mg Oral Once A Day for Anxiety 30 Albuterol Sulfate (Proventil) 1 Puff 1 Puff Inhalation As Needed as needed for Shortness Of Breath 30 Days 11/26/15 Levetiracetam 1,000 Mg 1,000 Mg Oral Three Times A Day for Seizure 11/26/15 Hydrocodone/Acetaminophen 1 Each 1 Each Oral Every 6 To 8 Hours As Needed as needed for Severe Pain 10 02/25/16 Promethazine Hcl 25 Mg 25 Mg Oral Every 6 To 8 Hours As Needed as needed for Nausea / Vomiting 20 02/25/16 Past Home Medications Medication Directions Ordered Status Lamotrigine 150 Mg Tablet, 150 Mg Oral Three Times A Day for Seizure Discontinued Ibuprofen 800 Mg Tablet, 800 Mg Oral As Needed as needed for Pain 04/10/15 Discontinued Lurasidone Hcl 40 Mg Tablet, 40 Mg Oral Once A Day for Anxiety 04/10/15 Discontinued [Vibrent] , Oral Once A Day for Anxiety 04/10/15 Discontinued Acetaminophen/Hydrocodone Bitart ([place]) 1 Each Tablet, 1 Each Oral Every Eight Hours as needed for Pain 04/10/15 Discontinued Ondansetron 4 Mg Tab.rapdis, 4 Mg Oral Every 6 To 8 Hours As Needed as needed for Nausea / Vomiting 04/10/15 Discontinued Lidocaine Hcl 20 Mg/1 Ml Solution, 20 Mg Mucous Mem Every 4 To 6 Hours As Needed as needed for Pain 08/11/15 Discontinued Clonazepam 1 Mg Tab.rapdis, 1 Mg Oral Three Times A Day 08/11/15 Discontinued Clonazepam 1 Mg Tablet, 1 Mg Oral Three Times A Day for Anxiety 08/26/15 Discontinued Lidocaine Hcl 20 Mg/1 Ml Solution, 20 Mg Mucous Mem Every 4 To 6 Hours As Needed for Mouth Pain 08/26/15 Discontinued Cyclobenzaprine Hcl 10 Mg Tablet, 10 Mg Oral Three Times A Day 08/26/15 Discontinued Hydrocodone/Acetaminophen 1 Each Tablet, 1 Each Oral Every 4 To 6 Hours As Needed as needed for Pain 08/26/15 Discontinued Social History Social History Problem Response Recorded Date/Time Alcohol Use none 02/25/2016 12:17am Drug Use none 02/25/2016 12:17am Smoking Status Current every day smoker 02/24/2016 11:51pm Smoked in the last 12 months? No 02/24/2016 11:51pm Do you dip or chew tobacco? No 02/24/2016 11:51pm Approx how many cigs per day? 20 02/24/2016 11:51pm Level of Dependence High 02/24/2016 11:51pm Former smoker, last day smoked? T 02/24/2016 11:51pm Query Response Start Date Stop Date Smoking Status Current every day smoker 02/25/2016 Hospital Discharge Instructions No hospital discharge instructions. Plan of Care Discharge Date 02/25/16 1:00am Disposition 01 D/C HOME Condition at Discharge Stable and Improved Instructions/Education Provided How to Stop Smoking (ED) Recurrent Seizures in Adults (ED) Forms Provided ER Discharge Phone Call Check Prescriptions See Medication Section Referrals RAUL MORA MD - Additional Instructions/Education call first thing in the morning to get in to see Dr. Mora in his office maria dolores Have someone stay with you tomorrow/until you see Dr. Mora You will be sore tomorrow second to seizure activity. Take the valium that you have at home every 8 hours to help prevent any breakthrough seizure activity You received injections while in the ER that will make you sleepy-home to rest and no driving Functional Status Query Response Date Recorded Activities of Daily Living Performs w/o Assistance February 24, 2016 11:51pm Cognitive Function Intact February 24, 2016 11:51pm Allergies, Adverse Reactions, Alerts Allergen Type Severity Reaction Status Last Updated Morphine Allergy Intermediate SWELLING AT INJECTION SITE Active 04/10/15 Aspirin Allergy Severe VOMIT, CONVUSIONS Active 04/10/15 Immunizations No immunization records. Vital Signs Acute Vital Signs Vital Response Date/Time Temperature (Fahrenheit) 97.8 degrees F (97.6 - 99.5) 02/24/2016 11:50pm Temperature (Calculated Celsius) 36.47101 degrees C (36.4 - 37.5) 02/24/2016 11:50pm Temperature Source Temporal Artery Scan 02/24/2016 11:50pm Pulse Pulse Ox Pulse Rate (adult) 72 beats per minute (60 - 90) 02/25/2016 12:15am Pulse Location Modifier Right 11/26/2015 12:20am Oxygen Saturation Respiratory Rate 20 breaths per minute (12 - 24) 02/25/2016 12:15am O2 Sat by Pulse Oximetry 96 % (90 - 100) 02/25/2016 12:15am Blood Pressure 108/64 mm Hg 02/25/2016 12:15am Blood Pressure Mean 79 mm Hg 02/25/2016 12:15am Height 5 ft 8 in Weight 225 lb Body Mass Index 34.2 kg/m^2 Results No known relevant diagnostic tests, laboratory data and/or discharge summary. Procedures Procedure Status Date Provider(s) EMERGENCY DEPT VISIT Completed 08/11/15 EMERGENCY DEPT VISIT Completed 08/26/15 EMERGENCY DEPT VISIT Completed 11/25/15 EMERGENCY DEPT VISIT Completed 11/25/15 THER/PROPH/DIAG INJ IV PUSH Completed 11/25/15 TX/PRO/DX INJ NEW DRUG ADDON Completed 11/25/15 TX/PRO/DX INJ SAME DRUG ORACLE MANAGER Completed 11/25/15 X-RAY EXAM UNILAT RIBS/CHEST Completed 01/13/16 Encounters Encounter Location Arrival/Admit Date Discharge/Depart Date Attending Provider Departed Emergency Room [facility] 02/24/16 11:45pm 02/25/16 1: 00am ALLEN PRESTON APRN Registered Replaced By [facility] 01/15/16 9:02am RAUL MORA MD Registered Replaced By [facility] 01/13/16 9:47am RAUL MORA MD Departed Emergency Room [facility] 11/25/15 10:49pm 11/26/15 12: 21am ALLEN PRESTON APRN Departed Emergency Room [facility] 11/25/15 3:45pm 11/25/15 5: 50pm ALLEN PRESTON APRN Registered Replaced By [facility] 10/22/15 2:40pm RAUL MORAN Departed Emergency Room [facility] 08/26/15 12:10pm 08/26/15 12: 50pm ALLEN PRESTON APRN Departed Emergency Room [facility] 08/11/15 5:47pm 08/11/15 7: 15pm BELEN CANICNO MD Recent Diagnosis
--- OUTSIDE RECORDS SUMMARY | 2017-04-17 23:30 | XMS REPORT | Continuity of Care Document ---
Author Author [facility] Organization [facility] Address [address] [place] [address] Phone Unavailable Care Team Providers Care New Media Strategist Name Role Phone RAUL MORA MD PCP Insurance Providers Payer Name Policy Number Subscriber Name Relationship [facility] Comm Plan [id number] Joleen Jeffries 16 Self / Same As Patient Advance Directives Directive Response Recorded Date/Time Living Will No 01/13/16 9:42am Advance Directives No 04/10/15 8:12pm Advance Directive on File No 03/28/16 7:16pm Durable POA for HC No 03/28/16 7:16pm Power of Ear Nose Throat Physician No 03/28/16 7:16pm Organ Donor No 03/28/16 7:16pm Living Will No 03/28/16 7:16pm Chief Complaint and Reason for Visit Chief Complaint Seizure Reason for Visit [id number] Sphenoid sinusitis Hypokalemia Problems Active Problems Medical Problem Onset Date Status Cyst of ovary, right Unknown Acute Epilepsy seizure, generalized, convulsive Unknown Acute Headache Unknown Acute Hypokalemia Unknown Acute Low back pain Unknown Acute [...] needed for Nausea / Vomiting 20 02/25/16 Hydrocodone Bit/Acetaminophen 1 Tab 0.5-1 Tab Oral Every 6 To 8 Hours As Needed as needed for Pain 10 03/28/16 Lidocaine Hcl 20 Mg/1 Ml 5 Ml Mucous Mem Every 2 Hours While Awake as needed for Mouth Pain 120 03/28/16 Past Home Medications Medication Directions Ordered Status Lamotrigine 150 Mg Tablet, 150 Mg Oral Three Times A Day for Seizure Discontinued Ibuprofen 800 Mg Tablet, 800 Mg Oral As Needed as needed for Pain 04/10/15 Discontinued Lurasidone Hcl 40 Mg Tablet, 40 Mg Oral Once A Day for Anxiety 04/10/15 Discontinued [Vibrent] , Oral Once A Day for Anxiety 04/10/15 Discontinued Acetaminophen/Hydrocodone Bitart ([place]) 1 Each Tablet, 1 Each Oral Every [...] History Social History Problem Response Recorded Date/Time Smoking Status Current every day smoker 03/28/2016 7:18pm Smoked in the last 12 months? Yes 03/28/2016 7:33pm Do you dip or chew tobacco? No 03/28/2016 7:18pm Approx how many cigs per day? 20 03/28/2016 7:18pm Level of Dependence High 03/28/2016 7:33pm Former smoker, last day smoked? TODAY 03/28/2016 7:18pm Query Response Start Date Stop Date Smoking Status Current every day smoker Hospital Discharge Instructions No hospital discharge instructions. Plan of Care Discharge Date 03/28/16 9:05pm Disposition 01 D/C HOME Condition at Discharge Improved Instructions/Education Provided Recurrent Seizures in Adults (ED) Forms Provided ER Discharge Phone Call Check Prescriptions See Medication Section Referrals RAUL MORA MD - Additional Instructions/Education Thank you for choosing our facility for your medical care. Your laboratory studies were received and reviewed. Your blood sugar level was mildly elevated at 139 (normal 70 - 99), and your potassium was slightly low at 3.4 (normal 3.5 - 4.5). You were provided with IV fluids and medications in the emergency department to address this condition. Muscles may remain sore for several days. Consider a warm bath or shower to loosen up sore muscles. May also consider use of a topical muscle rub, such as BioFreeze. CT scan of head did not show any active bleeding at this time. Bleeding of the brain may develop for up to 24 hours post head injury. If you feel like your symptoms are worsening within the next 24 hours, do not hesitate to return for further evaluation. The scan of your head displayed increased secretions in your sphenoid sinus. Sinuses are air-filled sacs (empty spaces) on either side of the nasal cavity that filter and clean the air breathed through the nose and lighten the bones of the skull. There are four paired sinuses in the head. The most posterior (farthest toward the back of the head) of these is the sphenoid sinus. Consider use of a bedside humidifier or salt lamp at night to help alleviate sinus irritation. Antibiotics are not necessary for chronic sinus inflammation, but you do need to be watchful for signs of acute infection (below) Symptoms of Sphenoid Sinusitis Symptoms of sphenoid sinus disease are also the same with other sinusitis. You may experience : cold, mucus discharge, headache, neck pain in some cases, and/or weakened sense of smell. A person can only determine if the infection has reached the sphenoid when he feels the pain on top of your head or at the back of the neck. Sometimes a person may feel pain on the right or on the left side of the face. This part of the sinus cannot be infected easily. The basic explanation for this is its location. It would be hard for bacteria or viruses to reach it because the location is not that easy to penetrate. It is not easy to diagnose sphenoid sinusitis. The doctor needs to get a sample of blood or sweat to know if there are traces of bacteria and fungus in the sinus. Another way to know the condition of the sphenoid is by CT Scan. Sphenoid sinusitis should not be taken for granted because progressive growth of the infection can cause neurological damage. Of all the sinuses, the sphenoid is one of the most sensitive because of the connection between the sinus and the optic nerve. Please follow up with your PCP to discuss whether or not additional diagnostic studies would be of benefit to further evaluate your condition. Our radiologist has suggested that perhaps an MRI would be of benefit. These types of studies cannot be done through the ER. Reference Links Holiday travel safety Functional Status Query Response Date Recorded Activities of Daily Living Performs w/o Assistance March 28, 2016 7:18pm Cognitive Function Intact March 28, 2016 7:18pm Allergies, Adverse Reactions, Alerts Allergen Type Severity Reaction Status Last Updated Morphine Allergy Intermediate SWELLING AT INJECTION SITE Active 04/10/15 Aspirin Allergy Severe VOMIT, CONVUSIONS Active 04/10/15 Immunizations No immunization records. Vital Signs Acute Vital Signs Vital Response Date/Time Temperature (Fahrenheit) 97.8 degrees F (97.6 - 99.5) 03/28/2016 9:00pm Temperature (Calculated Celsius) 36.87199 degrees C (36.4 - 37.5) 03/28/2016 9:00pm Temperature Source Oral 03/28/2016 9:00pm Pulse Pulse Ox Pulse Rate (adult) 61 beats per minute (60 - 90) 03/28/2016 9:00pm Pulse Location Modifier Left 03/28/2016 9:00pm Oxygen Saturation Respiratory Rate 20 breaths per minute (12 - 24) 03/28/2016 9:00pm O2 Sat by Pulse Oximetry 99 % (90 - 100) 03/28/2016 9:00pm Blood Pressure 102/53 mm Hg 03/28/2016 9:00pm Blood Pressure Mean 69 mm Hg 03/28/2016 9:00pm Height 5 ft 8.5 in Weight 212 lb Body Mass Index 31.8 kg/m^2 Results Pending Laboratory Results Test Name Collection Date/Time Procedures Procedure Status Date Provider(s) EMERGENCY DEPT VISIT Completed 08/11/15 EMERGENCY DEPT VISIT Completed 08/26/15 EMERGENCY DEPT VISIT Completed 11/25/15 EMERGENCY DEPT VISIT Completed 11/25/15 THER/PROPH/DIAG INJ IV PUSH Completed 11/25/15 TX/PRO/DX INJ NEW DRUG ADDON Completed 11/25/15 TX/PRO/DX INJ SAME DRUG WORKFORCE INVESTMENT ACT CAREER MANAGER Completed 11/25/15 X-RAY EXAM UNILAT RIBS/CHEST Completed 01/13/16 THER/PROPH/DIAG INJ IA Completed 02/24/16 EMERGENCY DEPT VISIT Completed 02/24/16 INJECTION, HYDROMORPHONE, UP TO 4 MG Completed INJECTION, DIAZEPAM, UP TO 5 MG Completed EMERGENCY DEPT VISIT Completed 02/24/16 Encounters Encounter Location Arrival/Admit Date Discharge/Depart Date Attending Provider Departed Emergency Room [facility] 03/28/16 7:10pm 03/28/16 9: 05pm TRAM WALSH APRN Departed Emergency Room [facility] 02/24/16 11:45pm 02/25/16 1: 00am ALLEN PRESTON APRN Registered [facility] 01/15/16 9:02am RAUL MORA MD Registered [facility] 01/13/16 9:47am RAUL MORA MD Departed Emergency Room [facility] 11/25/15 10:49pm 11/26/15 12: 21am ALLEN PRESTON APRN Departed Emergency Room [facility] 11/25/15 3:45pm 11/25/15 5: 50pm ALLEN PRESTON APRN Registered [facility] 10/22/15 2:40pm RAUL MORAN Departed Emergency Room [facility] 08/26/15 12:10pm 08/26/15 12: 50pm ALLEN PRESTON APRN Departed Emergency Room [facility] 08/11/15 5:47pm 08/11/15 7: 15pm BELEN CANCINO MD Recent Diagnosis
--- OUTSIDE RECORDS SUMMARY | 2017-04-17 23:30 | XMS REPORT ---
Author Author Dylan Morejon [facility] Address [address] [place], [place] [id number] Care Team Providers Care Wiring Technician Name Role Phone Dylan Morejon PCP Allergies and Adverse Reactions Name Reaction Notes Aspirin Morphine Sulfate Tylenol-Codeine #3 Plan of Treatment Planned Activity Comments Planned Date Planned Time Plan/Goal HEPATITIS DELTA AGENT ANTBDY 01/08/2016 12:00 AM HEPATITIS DELTA AGENT ANTBDY 01/08/2016 12:00 AM DETECT AGENT NOS DNA AMP 01/08/2016 12:00 AM HEPATITIS B DNA QUANT 01/08/2016 12:00 AM ECHO EXAM OF ABDOMEN 01/08/2016 12:00 AM X-RAY EXAM UNILAT RIBS/CHEST 01/08/2016 12:00 AM Medications Active Name Start Date Estimated Completion Date SIG Comments Lamictal 200 mg oral tablet take 1 tablet by oral route 3 times a day Keppra 100 mg/mL oral solution take 1 milliliter by oral route 4 times a day tizanidine 4 mg oral tablet take 1 [...] take 4 capsules by oral route daily Ambien 10 mg oral tablet take 1 tablet by oral route daily as needed hydroxyzine HCl 25 mg oral tablet take 1 tablet by oral route 4 times a day Vistaril 25 mg oral capsule take 2 capsules (50 mg) by oral route 4 times per day Lidocaine Viscous 2 % mucous membrane solution use as directed by oral route every 3 hours ibuprofen 800 mg oral tablet take 1 tablet by oral route 3 times a day Proventil HFA 90 mcg/actuation inhalation HFA aerosol inhaler inhale 2 puffs (180 mcg) by inhalation route every 6 hours as needed Proventil HFA 90 mcg/actuation inhalation HFA aerosol inhaler 12/24/2015 2 PUFFS EVERY 6 HOURS NEEDED baclofen 10 mg oral tablet 12/31/2015 03/30/2016 take 1 tablet by oral route 4 times a day as needed for 90 days omeprazole 40 mg oral capsule,delayed release(DR/EC) 12/31/2015 12/25/2016 take 1 capsule by oral route daily for 90 days Name Start Date Expiration Date SIG Comments oxycodone 5 mg oral tablet 12/04/2015 01/03/2016 take 1 tablet by oral route daily as needed for 30 days diazepam 10 mg oral tablet 12/04/2015 01/03/2016 take 1 tablet (10 mg) by oral route 2 times per day for 30 days Discontinued Name Start Date Discontinued Date SIG Comments hydrocodone-acetaminophen 10-325 mg oral tablet 12/04/2015 take 1 tablet by oral route every 6 hours as needed for pain Problem List Not available. Vital Signs Date Time BP-Sys(mm[Hg] BP-Penelope(mm[Hg]) HR(bpm) RR(rpm) Temp WT HT HC BMI BSA BMI Percentile O2 Sat(%) 01/08/2016 8:56:00 AM 110 mmHg 76 mmHg 90 bpm 16 rpm 99.3 F 232 lbs 68 in 35.28 kg/m2 2.25 m2 97 % 12/04/2015 3:32:00 PM 130 mmHg 80 mmHg 88 bpm 16 rpm 99.5 F 230.125 lbs 68 in 34.99 kg/m 2.2379 m 98 % Social History Name Description Comments Tobacco Never smoker Alcohol Never History of Procedures Date Ordered Description Order Status 12/04/2015 12:00 AM COMPREHEN METABOLIC PANEL Returned 12/04/2015 12:00 AM HEP B SURFACE ANTIBODY Returned 12/04/2015 12:00 AM HEPATITIS B SURFACE AG EIA Returned 12/04/2015 12:00 AM HEPATITIS B DNA AMP PROBE Returned Results Summary Not available. History Of Immunizations Not available. History of Past Illness Name Date of Onset Comments Epilepsy Head trauma bipolar Anxiety OCD Borderline personality disorder Depression Asthma Seizure disorder Hepatitis B Infection Hepatitis B infection without delta agent without hepatic coma, unspecified chronicity Dec 04 2015 3:35PM Recurrent Seizure disorder Dec 04 2015 3:35PM Hepatitis B infection without delta agent without hepatic coma, unspecified chronicity Jan 08 2016 8:58AM Rib pain Jan 08 2016 8:58AM Payers Insurance Name Company Name Plan Name Plan Number Policy Number Policy Group Number Start Date Medicare Part B Medicare Of [place] [id number] Wednesday, 2015 [facility] Plan of [id number] May History of Encounters Visit Date Visit Type Provider 01/08/2016 Office visit 01/08/[address] Dylan Morejon MD 12/04/2015 Office visit 12/04/[address] Dylan Morejon MD
--- OUTSIDE RECORDS SUMMARY | 2017-04-17 23:30 | XMS REPORT ---
Author Author Zahida Baxter [facility] Address [address] [place] [id number] Care Team Providers Care Vp Cardiovascular Name Role Phone Zahida Baxter PCP Unavailable [...] 2 times per day for 7 days ibuprofen 800 mg oral tablet 09/15/2016 11/14/2016 take 1 tablet by oral route 3 for 30 days Lamictal 200 mg oral tablet 09/15/2016 01/13/2017 take 1 tablet by oral route 3 for 30 days Proventil HFA 90 mcg/actuation inhalation HFA aerosol inhaler 09/15/20162016 2 PUFFS EVERY 6 HOURS NEEDED for 30 days Bactrim DS 800-160 mg oral tablet 11/03/2016 11/13/2016 take 1 tablet by oral route 2 times per day for 10 days Discontinued Name Start Date Discontinued Date [...] HC BMI BSA BMI Percentile O2 Sat(%) 01/22/2017 8:36:00 AM 106 mmHg 72 mmHg 95 bpm 20 rpm 99 F 233.25 lbs 68 in 35.47 kg/m2 2.25 m2 98 % 11/03/2016 2:36:00 PM 128 mmHg 78 mmHg 82 bpm 20 rpm 99.4 F 227.25 lbs 68 in 34.5529 kg/m 2.2239 m 99 % 09/15/2016 11:19:00 AM 118 mmHg 72 mmHg 89 bpm 20 rpm 99.1 F 230.5 lbs 68 in 35.05 kg/m2 2.24 m2 98 % 08/18/2016 8:31:00 AM 120 mmHg 76 mmHg 70 bpm 20 rpm 99.2 F 231.5 lbs 68 in 35.1991 kg/m 2.2446 m 98 % 08/05/2016 10:09:00 AM 118 mmHg 74 mmHg 84 bpm 99.2 F 232.125 lbs 68 in 35.29 kg/m2 2.25 m2 99 % 07/20/2016 1:47:00 PM 118 mmHg 78 mmHg 111 bpm 20 rpm 97.9 F 227 lbs 68 in 34.5149 kg/m 2.2226 m 99 % 06/24/2016 10:28:00 AM 106 mmHg 67 mmHg 87 bpm 20 rpm 97.9 F 230 lbs 68 in 34.97 kg/m2 2.24 m2 99 % 06/05/2016 9:35:00 AM 122 mmHg 74 mmHg 114 bpm 22 rpm 98.2 F 230.5 lbs 68 in 35.047 kg/m 2.2397 m 97 % 04/16/2016 9:51:00 AM 117 mmHg [...] Reviewed Results Summary Date and Description Results 08/06/2016 10:45 AM GLUCOSE 134.0 mg/dLSODIUM 140.0 [...] OCD Borderline personality disorder Depression Asthma Seizure Disorder Hepatitis B Infection Chronic viral hepatitis B [...] 2016 11:32AM Abscess Nov 03 2016 2:39PM Cigarette nicotine dependence without complication Jan 22 2017 8:46AM Nonintractable generalized idiopathic epilepsy without status epilepticus Jan 22 2017 8:46AM Payers Insurance Name Company Name Plan Name Plan Number Policy Number Policy Group Number Start Date Medicare RHC Medicare RHC [id number] N/A [facility] - RHC - Community Plan [facility] RHC Comm [id number] N/A Medicare Part A Medicare - Lab/Xray [id number] N/A [facility] Comm Plan of [id number] May Medicare Part B Medicare Of [place] [id number] Wednesday, December 16, 2015 History of Encounters Visit Date Visit Type Provider 01/22/2017 Office visit Zahida Baxter MD 11/03/2016 Office visit Zahida Baxter MD 09/15/2016 [...]
--- OUTSIDE RECORDS SUMMARY | 2017-04-17 23:30 | XMS REPORT ---
Author Author Dylan Morejon [facility] Address [address] [place] [id number] Care Team Providers Care Lens Polisher Hand Name Role Phone Dylan Morejon PCP Allergies and Adverse Reactions Name Reaction Notes Aspirin Morphine Sulfate Tylenol-Codeine #3 Plan of Treatment Planned Activity Comments Planned Date Planned Time Plan/Goal COMPREHEN METABOLIC PANEL 12/04/2015 12:00 AM HEP B SURFACE ANTIBODY 12/04/2015 12:00 AM HEPATITIS B SURFACE AG EIA 12/04/2015 12:00 AM HEPATITIS B DNA AMP PROBE 12/04/2015 12:00 AM Medications Active Name Start Date Estimated Completion Date SIG Comments Lamictal 200 mg oral tablet take 1 tablet by oral route 3 times a day Keppra 100 mg/mL oral solution take 1 milliliter by oral route 4 times a day omeprazole 40 mg oral capsule,delayed release(DR/EC) take 1 capsule by oral route daily baclofen 10 mg oral tablet take 1 tablet by oral route 4 times a day as needed tizanidine 4 mg oral tablet take 1 [...] inhalation route every 6 hours as needed oxycodone 5 mg oral tablet 12/04/2015 01/03/2016 [...] HC BMI BSA BMI Percentile O2 Sat(%) 12/04/2015 3:32:00 PM 130 mmHg 80 mmHg 88 bpm 16 rpm 99.5 F 230.125 lbs 68 in 34.99 kg/m2 2.24 m2 98 % Social History Name Description Comments Tobacco Never smoker Alcohol Never History of Procedures Not available. Results Summary Not available. History Of Immunizations Not available. History of Past Illness Name Date of Onset Comments Epilepsy Head trauma bipolar Anxiety OCD Borderline personality disorder Depression Asthma Seizure disorder Hepatitis B Infection Hepatitis B infection without delta agent without hepatic coma, unspecified chronicity Dec 04 2015 3:35PM Recurrent Seizure disorder Dec 04 2015 3:35PM Payers Insurance Name Company Name Plan Name Plan Number Policy Number Policy Group Number Start Date [facility] Plan of [id number] May History of Encounters Visit Date Visit Type Provider 12/04/2015 Office visit 12/04/[address] Dylan Morejon MD
--- OUTSIDE RECORDS SUMMARY | 2017-04-17 23:30 | XMS REPORT ---
Author Author Naomi Roberson Organization [facility] Address [address] [place] [id number] Care Team Providers Care Social Services Analyst Name Role Phone Naomi Roberson PCP Unavailable [...] 90 days baclofen 10 mg oral tablet 04/02/2016 TAKE 1 TABLET BY ORAL ROUTE 4 TIMES A DAY NEEDED FOR 30 DAYS Proventil HFA 90 mcg/actuation inhalation HFA aerosol inhaler 04/17/2016 2 PUFFS EVERY 6 HOURS NEEDED ibuprofen 800 mg oral tablet 05/14/2016 take 1 tablet by oral route 3 times a day mupirocin 2 % topical ointment 06/24/2016 06/29/2016 apply a small amount to the affected area by topical route 3 times per day for 5 days Name Start Date Expiration Date SIG [...] HC BMI BSA BMI Percentile O2 Sat(%) 06/24/2016 10:28:00 AM 106 mmHg 67 mmHg [...] Lump on neck Jun 24 2016 10:34AM Payers Insurance Name Company Name Plan Name Plan Number Policy Number Policy Group Number Start Date Medicare Part B Medicare Of [place] [id number] Wednesday, 2015 [facility] Plan of [id number] May History of Encounters Visit Date Visit Type Provider 06/24/2016 Office visit Naomi Roberson MD 06/05/2016 Office visit Naomi Roberson MD 04/16/[address] Dylan Morejon MD 01/08/2016 Office visit 01/08/[address] Dylan Morejon MD 12/04/2015 Office visit 12/04/[address] Dylan Morejon MD
--- OUTSIDE RECORDS SUMMARY | 2017-04-17 23:31 | XMS REPORT ---
Author Author Naomi Roberson Organization [facility] Address [address] [place], [place] [phone] Care Team Providers Care Minute Clerk For Basic Traffic Name Role Phone Naomi Roberson PCP Unavailable [...] HC BMI BSA BMI Percentile O2 Sat(%) 08/05/2016 10:09:00 AM 118 mmHg 74 mmHg [...] 08/05/2016 12:00 AM ASSAY THYROID STIM HORMONE Returned 08/05/2016 12:00 AM e-channelEN METABOLIC PANEL Returned Results Summary Data and Description [...] 10:17AM Atopic neurodermatitis Aug 05 2016 10:17AM Payers Insurance Name Company Name Plan Name Plan Number Policy Number Policy Group Number Start Date Medicare Part B Medicare [place] [id number] Wednesday, 2015 [facility] Plan of [id number] May History of Encounters Visit Date Visit Type Provider 08/06/2016 Laboratory Naomi Roberson MD 08/05/2016 Office [...]
--- OUTSIDE RECORDS SUMMARY | 2017-04-17 23:31 | XMS REPORT ---
Author Author Devon Brown Organization [facility] Address [address] [place], [place] [phone] Care Team Providers Care Food Service Employee Name Role Phone Devon Brown PCP Unavailable Allergies and Adverse Reactions Name [...] 2015 12:00 AM Polysomnography 09/15/2016 12:00 AM Transabdominal / Transvaginal US (non-OB) 04/14/2017 12:00 AM Transabdominal / Transvaginal US (non-OB) 04/14/2017 12:00 AM irregular nevi Medications Active Name [...] needed omeprazole 40 mg oral capsule,delayed release(DR/EC) 09/15/2016 09/10/2017 take 1 capsule by oral route daily for 90 days Zanaflex 4 mg oral tablet 03/11/2017 take 1 tablet by oral route 2 times a day as needed for 10 days muscle spasm baclofen 20 mg oral tablet take 1 tablet (20 mg) by oral route 3 times per day Name Start Date Expiration Date SIG Comments [...] 2 times per day for 10 days Medrol (Jesu) 4 mg oral tablets,dose pack 01/26/2017 take as directed Discontinued Name Start Date Discontinued Date SIG Comments Keppra 100 mg/mL oral solution 09/15/2016 take 1 milliliter by oral route 4 times a day hydrocodone-acetaminophen 10-325 mg oral tablet 12/04/2015 take 1 tablet by oral route every 6 hours as needed for pain baclofen 20 mg oral tablet 08/05/2016 03/11/2017 take 1 tablet (20 mg) by oral route 3 times per day for 90 days Problem List Description Status Onset Chronic viral hepatitis B without delta agent and without coma Active 2015 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 04/16/2016 Vital Signs Date Time BP-Sys(mm[Hg] BP-Penelope(mm[Hg]) HR(bpm) RR(rpm) Temp WT HT HC BMI BSA BMI Percentile O2 Sat(%) 04/06/2017 2:15:00 PM 120 mmHg 70 mmHg 94 bpm 98.7 F 236 lbs 68 in 35.88 kg/m2 2.27 m2 03/11/2017 9:55:00 AM 116 mmHg 78 mmHg 83 bpm 22 rpm 99.2 F 230 lbs 68 in 34.971 kg/m 2.2373 m 98 % 01/26/2017 11:00:00 AM 124 mmHg 78 mmHg 89 bpm 20 rpm 99.2 F 230.25 lbs 68 in 35.01 kg/m2 2.24 m2 98 % 01/22/2017 8:36:00 AM 106 mmHg 72 mmHg 95 bpm 20 rpm 99 F 233.25 lbs 68 in 35.4652 kg/m 2.253 m 98 % 11/03/2016 2:36:00 PM 128 mmHg [...] Reviewed 09/25/2016 12:00 AM EXTREMITY STUDY Reviewed 01/26/2017 11:11 AM INFLUENZA ASSAY W/OPTIC Reviewed Results Summary Date and Description Results 08/06/2016 10:45 AM GLUCOSE 134.0 mg/dLSODIUM 140.0 mmol/LPOTASSIUM 4.0 mmol/ LCHLORIDE 109.0 mmol/LCO2 20.0 mmol/LBUN 19.0 mg/dLCREATININE 0.80 mg/dLSGOT/ AST 12.0 IU/LSGPT/ALT 13.0 IU/LALK PHOS 65.0 IU/LTOTAL PROTEIN 6.80 g/dLALBUMIN 4.10 g/dLTOTAL BILI 0.30 mg/dLCALCIUM 9.10 mg/dLAGE 31 GFR NonAA 83 GFR AA 101 eGFR >60 mL/min/1.73meGFR AA* >60 TSH 0.880 uIU/mL 01/26/2017 11:11 AM Influenza A neg Influenza B neg History Of Immunizations Not available. History of [...] without status epilepticus Jan 22 2017 8:46AM Cough Jan 26 2017 11:02AM Acute pansinusitis, recurrence not specified Jan 26 2017 11:02AM Nonintractable generalized idiopathic epilepsy without status epilepticus Mar 11 2017 10:03AM Pelvic pain in female Apr 06 2017 2:53PM Payers Insurance Name Company Name Plan Name Plan Number Policy Number Policy Group Number Start Date Medicare RHC Medicare RHC [id number] N/A [facility] - RHC - Community Plan of [facility] RHC Comm [id number] N/A Medicare Part A Medicare - Lab/Xray [id number] N/A [facility] Comm Plan of [id number] [place] Medicare Part B Medicare Of [place] [id number] Wednesday, December 16, 2015 History of Encounters Visit Date Visit Type Provider 04/06/2017 Office visit Devon Brown MD 03/11/2017 Office visit Zahida Baxter MD 01/26/2017 Office visit Shanda Nielsen APRN 01/22/2017 Office visit Zahida Baxter MD 11/03/2016 [...]
--- OUTSIDE RECORDS SUMMARY | 2017-04-17 23:31 | XMS REPORT | Continuity of Care Document ---
Author Author [facility] Organization [facility] Address [address] [place] [address] Phone Unavailable Care Team Providers Care Librarian Assistant Name Role Phone RAUL MORA MD PCP Insurance Providers Payer Name Policy Number Subscriber Name Relationship [facility] Comm Plan [id number] Joleen Jeffries 16 Self / Same As Patient Advance Directives Directive Response Recorded Date/Time Advance Directives No 04/10/15 8:12pm Advance Directive on File No 11/25/15 10:50pm Durable POA for HC No 11/25/15 10:50pm Power of Roll Off Driver No 11/25/15 10:50pm Organ Donor No 11/25/15 10:50pm Living Will No 11/25/15 10:50pm Chief Complaint and Reason for Visit Chief Complaint Multiple Trauma/Fall Reason for Visit Low back pain [id number] Sacroiliac joint pain Problems Active Problems Medical Problem Onset Date [...] Needed as needed for Pain 8 11/25/15 [Levetiracetam] 1000 1,000 Mg Oral Three Times A Day for Seizure 120 1 am 1 pm 2 hs 11/26/15 Vilazodone Hydrochloride 40 Mg 40 Mg Oral Once A Day for Anxiety 30 Albuterol Sulfate (Proventil) 1 Puff 1 Puff Inhalation As Needed as needed for Shortness Of Breath 30 Days 11/26/15 Past Home Medications Medication Directions Ordered Status Lamotrigine 150 Mg Tablet, 150 Mg Oral Three Times A Day for Seizure Discontinued Ibuprofen 800 Mg Tablet, 800 Mg Oral As Needed as needed for Pain 04/10/15 Discontinued Lurasidone Hcl 40 Mg Tablet, 40 Mg Oral Once A Day for Anxiety 04/10/15 Discontinued [Vibrent] , Oral Once A Day for Anxiety 04/10/15 Discontinued Acetaminophen/Hydrocodone Bitart ([place]) 1 Each Tablet, 1 Each Oral Every [...] Problem Response Recorded Date/Time Alcohol Use none 11/25/2015 11:13pm Drug Use none 11/25/2015 11:13pm Smoking Status Current every day smoker 11/25/2015 10:50pm Smoked in the last 12 months? No 11/25/2015 10:50pm Do you dip or chew tobacco? No 11/25/2015 10:50pm Approx how many cigs per day? 20 11/25/2015 10:50pm Level of Dependence High 11/26/2015 12:09am Former smoker, last day smoked? T 11/25/2015 10:50pm Query Response Start Date Stop Date Smoking Status Current every day smoker 11/26/2015 Hospital Discharge Instructions No hospital discharge instructions. Plan of Care Discharge Date 11/26/15 12:21am Disposition 01 D/C HOME Condition at Discharge Stable and Improved Instructions/Education Provided How to Stop Smoking (ED) Sciatica (ED) Forms Provided ER Discharge Phone Call Check Prescriptions See Medication Section Referrals RAUL MORA MD - Additional Instructions/Education You were most likely having significant pain from spasms in your back and SI joint which applied pressure to your sciatic nerve No evidence of acute trauma to your back or hip on x-ray Home to rest-you may continue with home medications in the morning You were given an injection of steroids tonight as you don't tolerate these well orally f/u with the clinic as soon as possible-the ER is not able to treat any chronic pain so this must be addressed with primary care Functional Status Query Response Date Recorded Activities of Daily Living Performs w/o Assistance November 25, 2015 10:50pm Cognitive Function Intact November 25, 2015 10:50pm Allergies, Adverse Reactions, Alerts Allergen Type Severity Reaction Status Last Updated Morphine Allergy Intermediate SWELLING AT INJECTION SITE Active 04/10/15 Aspirin Allergy Severe VOMIT, CONVUSIONS Active 04/10/15 Immunizations No immunization records. Vital Signs Acute Vital Signs Vital Response Date/Time Temperature (Fahrenheit) 97.3 degrees F (97.6 - 99.5) 11/26/2015 12:20am Temperature (Calculated Celsius) 36.28458 degrees C (36.4 - 37.5) 11/26/2015 12:20am Temperature Source Temporal Artery Scan 11/26/2015 12:20am Pulse Pulse Ox Pulse Rate (adult) 69 beats per minute (60 - 90) 11/26/2015 12:20am Pulse Location Modifier Right 11/26/2015 12:20am Oxygen Saturation Respiratory Rate 14 breaths per minute (12 - 24) 11/26/2015 12:20am O2 Sat by Pulse Oximetry 96 % (90 - 100) 11/26/2015 12:20am Blood Pressure 97/57 mm Hg 11/26/2015 12:20am Blood Pressure Mean 70 mm Hg 11/26/2015 12:20am Height 5 ft 8 in Weight 225 lb Body Mass Index 34.2 kg/m^2 Results Laboratory Results Test Name Result Units Flags Reference Collection Date/Time Result Date/ Time Comments White Blood Count 6.4 x10^3/uL 4.0-11.0 04/10/2015 8:41pm 04/10/2015 8: 49pm Red Blood Count 4.96 10^6/uL 3.80-5.80 04/10/2015 8:41pm 04/10/2015 8: 49pm Hematocrit 44.6 % 37.0-47.0 04/10/2015 8:41pm 04/10/2015 8:49pm Mean Corpuscular Volume 90 fl 76-96 04/10/2015 8:41pm 04/10/2015 8: 49pm Mean Corpuscular Hemoglobin 29.5 pg 27.0-32.0 04/10/2015 8:41pm 2014 8:49pm Mean Corpuscular Hemoglobin Concent 32.8 g/dl 31.0-35.0 04/10/2015 8: 41pm 04/10/2015 8:49pm Red Cell Distribution Width 12.5 % 11.0-16.0 04/10/2015 8:41pm 2014 8:49pm Platelet Count 229 10^3/uL 150-500 04/10/2015 8:41pm 04/10/2015 8:49pm Mean Platelet Volume 7.8 fl 6.0-10.0 04/10/2015 8:41pm 04/10/2015 8: 49pm Neutrophils (%) (Auto) 58.6 % 45.0-70.0 04/10/2015 8:41pm 04/10/2015 8: 49pm Lymphocytes (%) (Auto) 25.5 % 20.0-40.0 04/10/2015 8:41pm 04/10/2015 8: 49pm Monocytes (%) (Auto) 13.1 % *H 3.0-10.0 04/10/2015 8:41pm 04/10/2015 8: 49pm Eosinophils (%) (Auto) 1.9 % 1.0-5.0 04/10/2015 8:41pm 04/10/2015 8: 49pm Basophils (%) (Auto) 0.9 % H 0.0-0.5 04/10/2015 8:41pm 04/10/2015 8: 49pm Neutrophils # (Auto) 3.72 x10^3/uL 2.00-7.50 04/10/2015 8:41pm 2014 8:49pm Lymphocytes # (Auto) 1.62 x10^3/uL 1.50-4.00 04/10/2015 8:41pm 2014 8:49pm Monocytes # (Auto) 0.83 x10^3/uL H 0.20-0.80 04/10/2015 8:41pm 2014 8:49pm Eosinophils # (Auto) 0.12 x10^3/uL 0.04-0.40 04/10/2015 8:41pm 2014 8:49pm Basophils # (Auto) 0.06 x10^3/uL 0.02-0.10 04/10/2015 8:41pm 2014 8:49pm Volume Urine Centrifuged 12 ml 04/10/2015 8:22pm 04/10/2015 8:48pm Test based ON 12 ml volume. Urine Color STRAW STRAW 04/10/2015 8:pm 04/10/2015 8:48pm Urine Clarity CLEAR CLEAR 04/10/2015 8:pm 04/10/2015 8:48pm Urine Specific [place] 1.025 A 1.010-1.020 04/10/2015 8:pm 2014 8:48pm Urine pH 5.0 5.0-6.0 04/10/2015 8:pm 04/10/2015 8:48pm Urine Leukocyte Esterase NEGATIVE NEGATIVE 04/10/2015 8:pm 2014 8:48pm Urine Nitrite NEGATIVE NEGATIVE 04/10/2015 8:pm 04/10/2015 8:48pm Urine Protein NEGATIVE NEGATIVE 04/10/2015 8:pm 04/10/2015 8:48pm Urine Glucose (UA) NEGATIVE NEGATIVE 04/10/2015 8:pm 04/10/2015 8: 48pm Urine Ketones NEGATIVE NEGATIVE 04/10/2015 8:pm 04/10/2015 8:48pm Urine Urobilinogen 0.2 0.2-1.0 04/10/2015 8:04/10/2015 8:48pm Urine Bilirubin NEGATIVE NEGATIVE 04/10/2015 8:04/10/2015 8: 48pm Urine Occult Blood NEGATIVE NEGATIVE 04/10/2015 8:04/10/2015 8: 48pm Urine WBC NONE #/HPF OCCASIONAL 04/10/2015 8:04/10/2015 8:48pm Urine RBC NONE #/HPF OCCASIONAL 04/10/2015 8:04/10/2015 8:48pm Urine Epithelial Cells 2+ #/HPF OCCASIONAL 04/10/2015 8:2014 8:48pm Urine Other Casts NONE #/LPF NEGATIVE 04/10/2015 8:04/10/2015 8: 48pm Urine Bacteria NONE NONE 04/10/2015 8:04/10/2015 8:48pm Urine Other Crystals NONE NONE 04/10/2015 8:04/10/2015 8:48pm Urine Mucus NONE NONE 04/10/2015 8:04/10/2015 8:48pm Urine Culture Indicated NO NO 04/10/2015 8:04/10/2015 8:48pm Sodium Level 139 mmol/L 137-145 04/10/2015 8:04/10/2015 8:50pm Potassium Level 3.6 mmol/L 3.5-5.1 04/10/2015 8:04/10/2015 8:50pm Carbon Dioxide Level 27.2 mmol/L 04/10/2015 8:04/10/2015 8: 50pm Anion Gap 11.4 mEq/L 8-04/10/2015 8:04/10/2015 8:50pm Blood Urea Nitrogen 14 mg/dL 7-04/10/2015 8:04/10/2015 8:50pm Creatinine 0.82 mg/dl 0.52-1.04 04/10/2015 8:04/10/2015 8:50pm Est Glomerular Filtrat Rate mL/min 81.31 04/10/2015 8:2014 8:50pm GFR NORMALS: Stage I: GFR >90 Stage II GFR 60-89 Stage III GFR 30-60 Stage IV: GFR 15-29 Stage V: GFR <15 BUN/Creatinine Ratio 17.07 04/10/2015 8:22pm 04/10/2015 8:50pm Glucose Level 114 mg/dL H 74-106 04/10/2015 8:22pm 04/10/2015 8:50pm Calcium Level 8.9 mg/dL 8.4-10.2 04/10/2015 8:22pm 04/10/2015 8:50pm Procedures Procedure Status Date Provider(s) EMERGENCY DEPT VISIT Completed 04/10/15 THER/PROPH/DIAG INJ IV PUSH Completed 04/10/15 EMERGENCY DEPT VISIT Completed 08/11/15 EMERGENCY DEPT VISIT Completed 08/26/15 Encounters Encounter Location Arrival/Admit Date Discharge/Depart Date Attending Provider Departed Emergency Room [facility] 11/25/15 10:49pm 11/26/15 12: 21am ALLEN PRESTON APRN Departed Emergency Room [facility] 11/25/15 3:45pm 11/25/15 5: 50pm ALLEN PRESTON APRN [facility] 10/22/15 2:40pm RAUL MORAN Departed Emergency Room [facility] 08/26/15 12:10pm 08/26/15 12: 50pm ALLEN PRESTON APRN Departed Emergency Room [facility] 08/11/15 5:47pm 08/11/15 7: 15pm BELEN CANCINO MD Departed Emergency Room [facility] 04/10/15 8:00pm 04/10/15 10: 35pm BELEN CANCINO MD Recent Diagnosis
--- OUTSIDE RECORDS SUMMARY | 2017-04-17 23:32 | XMS REPORT | Continuity of Care Document ---
Author Author [facility] Organization [facility] Address [address] [place] [address] Phone Unavailable Care Team Providers Care Soil Field Technician Name Role Phone RAUL GUERRA PCP tel: Insurance Providers Payer Name Policy Number Subscriber Name Relationship [facility] Comm Plan [id number] Joleen Jeffries 16 Self / Same As Patient Advance Directives Directive Response Recorded Date/Time Advance Directives No 04/10/15 8:12pm Advance Directive on File No 08/26/15 12:40pm Durable POA for HC No 08/26/15 12:40pm Power of Waiter/Waitress No 08/26/15 12:40pm Organ Donor No 08/26/15 12:40pm Living Will No 08/26/15 12:40pm Chief Complaint and Reason for Visit Chief Complaint Neck Pain Reason for Visit [id number] Headache Problems Active Problems Medical Problem Onset Date Status Cyst of ovary, right Unknown Acute Epilepsy seizure, generalized, convulsive Unknown Acute Headache Unknown Acute Neck muscle spasm Unknown Acute Neck muscle strain Unknown Acute Medications Current Home Medications Medication Dose Units Route Directions Days/Qty Instructions Start Date Ibuprofen 800 Mg 800 Mg Oral As Needed as needed for Pain 04/10/15 Lurasidone Hcl 40 Mg 40 Mg Oral Once A Day for Anxiety 04/10/15 Clonazepam 1 Mg 1 Mg Oral Three Times A Day for Anxiety 08/26/15 Lamotrigine 100 Mg 200 Mg Oral Three Times A Day for Seizure Lidocaine Hcl 20 Mg/1 Ml 20 Mg Mucous Mem Every 4 To 6 Hours As Needed for Mouth Pain 08/26/15 Cyclobenzaprine Hcl 10 Mg 10 Mg Oral Three Times A Day 10 08/26/15 Hydrocodone/Acetaminophen 1 Each 1 Each Oral Every 4 To 6 Hours As Needed as needed for Pain 10 08/26/15 Past Home Medications Medication Directions Ordered Status Lamotrigine 150 Mg Tablet, 150 Mg Oral Three Times A Day for Seizure Discontinued [Vibrent] , Oral Once A Day for Anxiety 04/10/15 Discontinued Acetaminophen/Hydrocodone Bitart ([place]) 1 Each Tablet, 1 Each Oral Every [...] Oral Three Times A Day 08/11/15 Discontinued Social History Social History Problem Response Recorded Date/Time Alcohol Use none 08/26/2015 12:32pm Drug Use none 08/26/2015 12:32pm Smoking Status Current every day smoker 08/26/2015 12:39pm Smoked in the last 12 months? No 08/26/2015 12:39pm Do you dip or chew tobacco? No 08/26/2015 12:39pm Approx how many cigs per day? 20 08/26/2015 12:39pm Level of Dependence Moderate 08/26/2015 5:14pm Former smoker, last day smoked? 08/26/15 08/26/2015 12:39pm Query Response Start Date Stop Date Smoking Status Current every day smoker 08/26/2015 Hospital Discharge Instructions No hospital discharge instructions. Plan of Care Discharge Date 08/26/15 12:50pm Disposition 01 D/C HOME Condition at Discharge Stable and Improved Instructions/Education Provided Cervical Strain (ED) Forms Provided ER Discharge Phone Call Check Prescriptions See Medication Section Referrals RAUL GUERRA - Additional Instructions/Education You received an injection of pain medication as well as a muscle relaxer for your neck spasms and associated headache Home to rest today-do not drive Use cold/hot packs to the area along with massage as needed Take your Ibuprofen 800mg three times daily with food to help with the swelling f/u with Dr. Guerra, call his office to make an appointment Reference Links Functional Status Query Response Date Recorded Activities of Daily Living Performs w/o Assistance August 26, 2015 12:39pm Cognitive Function Intact August 26, 2015 12:39pm Allergies, Adverse Reactions, Alerts Allergen Type Severity Reaction Status Last Updated Morphine Allergy Intermediate SWELLING AT INJECTION SITE Active 04/10/15 Aspirin Allergy Severe VOMIT, CONVUSIONS Active 04/10/15 Immunizations No immunization records. Vital Signs Acute Vital Signs Vital Response Date/Time Temperature (Fahrenheit) 98.2 degrees F (97.6 - 99.5) 08/26/2015 12:45pm Temperature (Calculated Celsius) 36.22305 degrees C (36.4 - 37.5) 08/26/2015 12:45pm Temperature Source Temporal Artery Scan 08/26/2015 12:45pm Pulse Pulse Ox Pulse Rate (adult) 84 beats per minute (60 - 90) 08/26/2015 12:45pm Pulse Location Modifier Left 08/26/2015 12:45pm Oxygen Saturation Respiratory Rate 20 breaths per minute (12 - 24) 08/26/2015 12:45pm O2 Sat by Pulse Oximetry 97 % (90 - 100) 08/26/2015 12:45pm Blood Pressure 96/69 mm Hg 08/26/2015 12:45pm Blood Pressure Mean 78 mm Hg 08/26/2015 12:45pm Height 5 ft 8 in Weight 220 lb Body Mass Index 33.5 kg/m^2 Results No known relevant diagnostic tests, laboratory data and/or discharge summary. Procedures Procedure Status Date Provider(s) EMERGENCY DEPT VISIT Completed 08/11/15 Encounters Encounter Location Arrival/Admit Date Discharge/Depart Date Attending Provider Departed Emergency Room [facility] 08/26/15 12:10pm 08/26/15 12: 50pm ALLEN PRESTON APRN Departed Emergency Room [facility] 08/11/15 5:47pm 08/11/15 7: 15pm BELEN CANCINO MD Recent Diagnosis
--- OUTSIDE RECORDS SUMMARY | 2017-04-17 23:32 | XMS REPORT | Referral Summary ---
Author Author [facility] Organization [facility] Address Unknown Phone Unavailable Care Team Providers Care Quick Service Technician Name Role Phone Dylan Guerra PCP Encounter [facility] [phone] Date(s): 09/16/15 - 09/16/15 [facility] [address] [address] Discharge Diagnosis: Lower back pain Discharge Diagnosis: Inflammatory arthritis Discharge Diagnosis: Fatigue Discharge Diagnosis: Right lumbar radiculopathy Discharge Disposition: 01-Home or Self Care Attending Physician: Carol Adair MD Admitting Physician: Carol Adair MD Referring Physician: Dylan Guerra DO Vital Signs Most recent to 1 oldest [Reference Range]: Peripheral Pulse 81 bpm Rate [60-100 bpm] (09/16/15 1:21 PM) Blood Pressure 108/69 mmHg [90-140/60-90 mmHg] (09/16/15 1:21 PM) Problem List Condition Effective Dates Status Health Status Informant Allergies(Confirmed) Active Anxiety(Confirmed) Active Asthma(Confirmed) Active Asthma(Confirmed) Active Bipolar disease, Active chronic(Confirmed) Chronic Active osteoarthritis(Confi rmed) Clonic seizure Active disorder(Confirmed) Seizures(Confirmed)1 Active 1Different types Allergies, Adverse Reactions, Alerts Substance Reaction Severity Status celecoxib rash Moderate Active Medications Ambien Oral, Bedtime (once a day), 0 Refill(s) Start Date: 09/16/15 Status: Ordered baclofen 10 mg oral tablet 10 mg 1 tabs, Oral, TID, # 270 tabs, 0 Refill(s) Start Date: 09/16/15 Status: Ordered HYDROcodone-acetaminophen 5 mg-325 mg oral tablet tabs, Oral, q6hr, 0 Refill(s) Start Date: 09/16/15 Status: Ordered hydrOXYzine pamoate 25 mg, Oral, TID, 0 Refill(s) Start Date: 09/16/15 Status: Ordered ibuprofen 800 mg oral tablet mg tabs, Oral, TID, 0 Refill(s) Start Date: 09/16/15 Status: Ordered lamoTRIgine 200 mg oral tablet 200 mg 1 tabs, Oral, BID, # 60 tabs, 0 Refill(s) Start Date: 09/16/15 Status: Ordered Latuda 20 mg oral tablet 20 mg 1 tabs, Oral, Daily, # 30 tabs, 0 Refill(s) Start Date: 09/16/15 Status: Ordered lidocaine 2.5% topical liquid 0 Refill(s) Start Date: 09/16/15 Status: Ordered omeprazole 40 mg oral delayed release capsule 40 mg 1 caps, Oral, Daily, # 30 caps, 0 Refill(s) Start Date: 09/16/15 Status: Ordered predniSONE 5 mg oral tablet See Instructions, 6 a dy for 2 dys, 5 a dy for 2 dys, 4 a dy for 2 dys, 3 a dy for 2 dys, 2 a dy for 2 dys, 1 a dy for 2 dys, # 42 tabs, 0 Refill(s), Pharmacy : [facility], 6 a dy for 2 dys, 5 a dy for 2 dys, 4 a dy for 2 dys, 3 a dy fo... Start Date: 09/16/15 Stop Date: 09/26/15 Status: Ordered Viibryd 40 mg oral tablet mg tabs, Oral, Daily, 0 Refill(s) Start Date: 09/16/15 Status: Ordered Results Hematology Most recent to 1 oldest [Reference Range]: WBC [4.8-10.8 9.6 10*3/uL 10*3/uL] (09/16/15 1:55 PM) RBC [4.00-5.20] 4.65 (09/16/15 1:55 PM) Hgb [12.0-16.0 13.3 gm/dL gm/dL] (09/16/15 1:55 PM) Hct [37.0-47.0 %] 40.3 % (09/16/15 1:55 PM) MCV [82.0-99.0 fL] 86.7 fL (09/16/15 1:55 PM) MCH [27.0-32.0 pg] 28.6 pg (09/16/15 1:55 PM) MCHC [32.0-36.0 33.0 gm/dL gm/dL] (09/16/15 1:55 PM) RDW [11.5-14.5 %] 13.8 % (09/16/15 1:55 PM) Platelet [150-400 252 10*3/uL 10*3/uL] (09/16/15 1:55 PM) MPV [8.8-14.8 fL] 11.2 fL (09/16/15 1:55 PM) Immature 0.5 % Granulocytes (09/16/15 1:55 PM) [0.0-1.0 %] Neutrophils [51-75 69 % %] (09/16/15 1:55 PM) Lymphocytes [20-46 18 % %] *LOW* (09/16/15 1:55 PM) Monocytes [4-11 %] 9 % (09/16/15 1:55 PM) Eosinophils [0-4 %] 3 % (09/16/15 1:55 PM) Basophils [0-2 %] 0 % (09/16/15 1:55 PM) Neutro Absolute 6.63 10*3 [1.90-7.00 10*3] (09/16/15 1:55 PM) Lymph Absolute 1.75 10*3 [0.80-3.30 10*3] (09/16/15 1:55 PM) [place] Absolute 0.85 10*3 [0.30-1.00 10*3] (09/16/15 1:55 PM) Eos Absolute 0.30 10*3 [0.00-0.50 10*3] (09/16/15 1:55 PM) Baso Absolute 0.02 10*3 [0.00-0.20 10*3] (09/16/15 1:55 PM) Sed Rate [0-23] 15 (09/16/15 1:55 PM) Chemistry Most recent to 1 oldest [Reference Range]: Sodium Lvl [135-144 142 mEq/L mEq/L] (09/16/15 1:55 PM) Potassium Lvl 4.0 mEq/L [3.5-5.2 mEq/L] (09/16/15 1:55 PM) Chloride [99-111 107 mEq/L mEq/L] (09/16/15 1:55 PM) CO2 [22-31 mEq/L] 29 mEq/L (09/16/15 1:55 PM) AGAP [3-20] 6 (09/16/15 1:55 PM) BUN [7-19 mg/dL] 12 mg/dL (09/16/15 1:55 PM) Glucose Lvl [70-99 101 mg/dL mg/dL] *HI* (09/16/15 1:55 PM) Creatinine Lvl 0.69 mg/dL [0.57-1.11 mg/dL] (09/16/15 1:55 PM) eGFR [>60 mL/min] >60 mL/min 1 (09/16/15 1:55 PM) Calcium Lvl 9.4 mg/dL [8.9-10.5 mg/dL] (09/16/15 1:55 PM) Albumin Lvl [3.5-5.0 4.2 gm/dL gm/dL] (09/16/15 1:55 PM) Total Protein 6.4 gm/dL [6.4-8.3 gm/dL] (09/16/15 1:55 PM) Globulin [1.8-4.0 2.2 gm/dL gm/dL] (09/16/15 1:55 PM) ALT [0-55 U/L] 21 U/L (09/16/15 1:55 PM) AST [5-34 U/L] 16 U/L (09/16/15 1:55 PM) Alk Phos [40-150 70 U/L U/L] (09/16/15 1:55 PM) Bili Total [0.2-1.2 0.2 mg/dL mg/dL] (09/16/15 1:55 PM) Hep A IgM Negative (09/16/15 1:55 PM) Hep C Ab Negative (09/16/15 1:55 PM) Hep B Core IgM Negative (09/16/15 1:55 PM) 1Result Comment: Multiply eGFR results by 1.21 for race. Immunizations No data available for this section Procedures Procedure Date Related Diagnosis Body Site Abdominal surgery to remove cysts-benign section 3 Hysterectomy Tubal ligation Social History Social History Type Response Smoking Status Current every day smoker Assessment and Plan No data available for this section
--- OUTSIDE RECORDS SUMMARY | 2017-04-17 23:32 | XMS REPORT ---
Author Author Zahida Baxter [facility] Address [address] [place], [place] [phone] Care Team Providers Care Plant Operator Name Role Phone Zahida Baxter PCP Unavailable [...] electrophoresis and immunofixation electrophoresis 2015 12:00 AM irregular nevi Medications Active Name [...] as needed for pain for 30 days Name Start Date Expiration Date SIG [...] route every 12 hours for 7 days triamcinolone acetonide 0.1 % topical ointment [...] US EXAM OF HEAD AND NECK Reviewed Results Summary Data and Description Results [...] 36AM Skin lesions Aug 18 2016 8:36AM Payers Insurance Name Company Name Plan Name Plan Number Policy Number Policy Group Number Start Date Medicare Part B Medicare [place] [id number] Wednesday, 2015 [facility] Plan of [id number] May History of Encounters Visit Date Visit [...]
--- OUTSIDE RECORDS SUMMARY | 2017-04-17 23:32 | XMS REPORT ---
Author Author Mahsa Freeman [facility] Address [address] [phone] Care Team Providers Care Business Support Manager Name Role Phone Freeman Bragg Unavailable PROBLEMS Type Condition ICD9-CM Code RAK64-CW Code Onset Dates Condition Status SNOMED Code Assessment Nausea and vomiting, intractability of vomiting not specified, unspecified vomiting type R11.2 September, Active 57193193 Assessment Hepatitis B infection without delta agent without hepatic coma, unspecified chronicity B19.10 September, Active [id number] Assessment Periumbilical abdominal pain R10.33 September, Active [id number] ALLERGIES Substance Reaction Event Type Date Status Morphine Sulfate Unknown Drug Allergy September, Active Aspirin Unknown Drug Allergy September, Active SOCIAL HISTORY No smoking Hx information available PLAN OF CARE Activity Details Pending Test HIV 1/2 ANTIGEN/ANTIBODY,FOURTH GENERATION W/RFL 20074 Pending Test CBC (INCLUDES DIFF/PLT) 28094 Pending Test PROTHROMBIN TIME-INR 15447 Pending Test HEPATITIS A AB, TOTAL 38184 Pending Test [place]IT[place] QL 44005 Pending Test HEPATITIS B CORE AB TOTAL 41584 Pending Test HEPATITIS B SURFACE ANTIGEN W/REFL CONFIRM 16019 Pending Test HEPATITIS BE ANTIBODY 22389 Pending Test HEPATITIS BE ANTIGEN 64602 Pending Test HEPATITIS C (HCV) ANTIBODY 12575 Pending Test TSH 30189 Pending Test HEPATITIS B (HBV) VIRUS DNA, QN, REAL TIME PCR 12937 2 Weeks following procedure,Reason: VITAL SIGNS Weight 231.4 lbs 2016-09-23 Heart Rate 76 /min 2016-09-23 Respiratory Rate 18 /min 2016-09-23 Blood pressure systolic 132 mm Hg 2016-09-23 Blood pressure diastolic 74 mm Hg 2016-09-23 MEDICATIONS Medication Instructions Dosage Frequency Start Date End Date Duration Status Lamotrigine 200 MG Orally Three times daily 1 tablet Active Betamethasone Dipropionate 0.05 % Externally Once a day 1 application to affected area 24h Active Ibuprofen 800 MG Orally Three times a day 1 tablet 8h Active Hydrocodone-Acetaminophen 5-325 MG Orally NEEDED 1 tablet Active Omeprazole 40 MG Orally Once a day 1 capsule 24h Active Cephalexin 500 MG Orally Three times daily 1 capsule Active Baclofen 20 MG Orally Three times daily 1 tablet with food or milk Active Proventil HFA 108 (90 Base) MCG/ACT Inhalation NEEDED 2 puffs as needed Active RESULTS No Results PROCEDURES Procedure Date Ordered Related Diagnosis Body Site Billed by outside source September 23, 2016 HEPATITIS BE AG, EIA September 23, 2016 Office Visit, New Pt., Level 4 September 23, 2016 IMMUNIZATIONS No Known Immunizations
--- OUTSIDE RECORDS SUMMARY | 2017-04-17 23:32 | XMS REPORT ---
Author Author Naomi Roberson Organization [facility] Address [address] [place], [place] [phone] Care Team Providers Care Senior Staff Consultant Name Role Phone Naomi Roberson PCP [...] electrophoresis and immunofixation electrophoresis 2015 12:00 AM TSH 08/05/2016 12:00 AM CMP 08/05/2016 12:00 AM Medications Active Name Start Date [...] Reviewed 08/06/2016 12:00 AM ROUTINE VENIPUNCTURE Reviewed Results Summary Data and Description Results [...] B without delta agent and without coma Dec 1 2016 10: 02AM Nonintractable generalized idiopathic epilepsy [...] Jul 20 2016 1:51PM Seizure disorder Aug 05 2016 10:17AM Seizure disorder Aug 06 2016 11:32AM Payers Insurance Name Company Name Plan Name Plan Number Policy Number Policy Group Number Start Date Medicare Part B Medicare [place] [id number] Wednesday, 2015 [facility] Plan of [id number] May History of Encounters Visit Date Visit [...]
--- OUTSIDE RECORDS SUMMARY | 2017-04-17 23:33 | XMS REPORT ---
Author Author Devon Brown Organization [facility] Address [address] [place] [phone] Care Team Providers Care Industrial Psychology Teacher Name Role Phone Devon Brown PCP Unavailable [...] / Transvaginal US (non-OB) 04/14/2017 12:00 AM Diagnostic Mammogram 04/14/2017 12:00 AM Transvaginal ultrasound examination 04/06/2017 12:00 AM TSH 04/06/2017 12:00 AM Free thyroxine (FT4) measurement 04/06/2017 12:00 AM Bacterial vaginosis panel (Gardnerella vaginalis, Atopobium vaginae, BV associated Bacteria 2 04/06/2017 12:00 AM irregular nevi Medications Active Name [...] pain in female Apr 06 2017 2:53PM Breast pain, left Apr 06 2017 2:55PM Breast pain, right Apr 06 2017 2:55PM Ovarian Cyst Apr 06 2017 2:18PM Abdominal Pain, RLQ Apr 06 2017 2:18PM Cold intolerance Apr 06 2017 2:18PM Vaginal discharge Apr 06 2017 2:18PM Breast pain Apr 06 2017 2:18PM Constipation Apr 06 2017 2:18PM Weight gain Apr 06 2017 2:18PM Payers Insurance Name Company Name Plan Name Plan Number Policy Number Policy Group Number Start Date Medicare RHC Medicare RHC [id number] N/A [facility] - RHC - Community Plan [facility] RHC Comm [id number] N/A Medicare Part A Medicare - Lab/Xray [id number] N/A [facility] Comm Plan of [id number] May Medicare Part B Medicare [place] [id number] Wednesday, December 16, 2015 History of Encounters [...]
--- OUTSIDE RECORDS SUMMARY | 2017-04-17 23:33 | XMS REPORT ---
Author Author Zahida Baxter [facility] Address [address] [place] [id number] Care Team Providers Care Job Captain Name Role Phone Zahida Baxter PCP Unavailable [...] as needed omeprazole 40 mg oral capsule,delayed release(/EC) 09/15/2016 09/10/2017 take 1 capsule by oral route daily for 90 days Medrol (Jesu) 4 mg oral tablets,dose pack 01/26/2017 take as directed Zanaflex 4 mg oral tablet 03/11/2017 take 1 tablet by oral route 2 times a day as needed for 10 days muscle spasm Name Start Date Expiration Date SIG Comments [...] HC BMI BSA BMI Percentile O2 Sat(%) 03/11/2017 9:55:00 AM 116 mmHg 78 mmHg 83 bpm 22 rpm 99.2 F 230 lbs 68 in 34.97 kg/m2 2.24 m2 98 % 01/26/2017 11:00:00 AM 124 mmHg 78 mmHg 89 bpm 20 rpm 99.2 F 230.25 lbs 68 in 35.009 kg/m 2.2385 m 98 % 01/22/2017 8:36:00 AM 106 mmHg [...] without status epilepticus Mar 11 2017 10:03AM Payers Insurance Name Company Name Plan Name Plan Number Policy Number Policy Group Number Start Date Medicare [facility] Medicare [facility] [id number] N/A [facility] Comm [id number] N/A Medicare Part A Medicare - Lab/Xray [id number] N/A [facility] Comm Plan of [id number] , May 17, 2014 Medicare Part B Medicare Of [place] [id number] Wednesday, December 16, 2015 History of Encounters Visit Date Visit Type Provider 03/11/2017 Office visit Zahida Baxter MD 01/26/2017 Office visit Shanda Nielsen YOLA 01/22/2017 Office visit Zahida Baxter MD 11/03/2016 [...]
--- OUTSIDE RECORDS SUMMARY | 2017-04-17 23:33 | XMS REPORT ---
Author Author Freeman Bragg [facility] Address [address] [place] [phone] Care Team Providers Care Hard Tile Setter Apprentice Name Role Phone Freeman Bragg Unavailable PROBLEMS Unknown Problems ALLERGIES Unknown Allergies SOCIAL HISTORY No smoking Hx information available PLAN OF CARE VITAL SIGNS MEDICATIONS Unknown Medications RESULTS No Results PROCEDURES No Known procedures IMMUNIZATIONS No Known Immunizations
--- OUTSIDE RECORDS SUMMARY | 2017-04-17 23:34 | XMS REPORT ---
Author Author Zahida Baxter [facility] Address [address] [place], [place] [phone] Care Team Providers Care Jewelry Inspector Name Role Phone Zahida Baxter PCP [...] Date Medicare Part B Medicare [place] [id number] Wednesday, 2015 [facility] Plan of [id number] May History of Encounters Visit Date Visit [...]
--- OUTSIDE RECORDS SUMMARY | 2017-04-17 23:34 | XMS REPORT ---
Author Author Devon Brown Organization [facility] Address [address] [place] [phone] Care Team Providers Care Retirement Consultant Name Role Phone Devon Brown PCP Unavailable [...] Number Start Date Medicare RHC Medicare RHC [id number] N/A [facility] - RHC - Community Plan [facility] RHC Comm [id number] N/A Medicare Part A Medicare - Lab/Xray [id number] N/A [facility] Comm Plan of [id number] May Medicare Part B Medicare [place] [id number] Wednesday, December 16, 2015 History of Encounters [...] 01/08/2016 Office visit 01/08/[address] yDlan Morejon MD 12/04/2015 Office visit 12/04/[address] Dylan Morejon MD
--- OUTSIDE RECORDS SUMMARY | 2017-04-17 23:35 | XMS REPORT ---
Author Author Shanda Nielsen [facility] Address [address] [place], [place] [phone] Care Team Providers Care Trauma Manager Name Role Phone Shanda Nielsen PCP Allergies and Adverse Reactions Name Reaction [...] by oral route 3 times per day Lamictal 200 mg oral tablet 04/12/2017 take 1 tablet by oral route 3 for 30 days Name Start Date Expiration [...] 01/26/2017 11:11 AM INFLUENZA ASSAY W/OPTIC Reviewed 04/13/2017 12:00 AM COLLECTION VENOUS BLOOD VENIPUNCTURE Reviewed Results Summary Date and Description Results [...] 2:18PM Weight gain Apr 06 2017 2:18PM Ovarian cyst Apr 13 2017 11:39AM Weight gain Apr 13 2017 11:39AM Breast pain Apr 13 2017 11:39AM Payers Insurance Name Company Name Plan Name Plan Number Policy Number Policy Group Number Start Date Medicare RHC Medicare RHC [id number] N/A [facility] RHC - Community Plan [facility] RHC Comm [id number] N/A Medicare Part A Medicare - Lab/Xray [id number] N/A [facility] Comm Plan of [id number] May Medicare Part B Medicare Of [place] [id number] Wednesday, December 16, 2015 History of Encounters Visit Date Visit Type Provider 04/13/2017 Laboratory Shanda Nielsen SHEET ROCK APPLICATOR 04/06/2017 Office visit Devon Brown MD 03/11/2017 [...]
--- OUTSIDE RECORDS SUMMARY | 2017-04-17 23:35 | XMS REPORT | Continuity of Care Document ---
Author Author [facility] Organization [facility] Address [address] [place] [address] Phone Unavailable Care Team Providers Care Composite Bond Worker Name Role Phone RAUL MORA MD PCP Insurance Providers Payer Name Policy Number Subscriber Name Relationship [facility] Comm Plan [id number] Joleen Jeffries 16 Self / Same As Patient Advance Directives Directive Response Recorded Date/Time Living Will No 01/13/16 9:42am Advance Directives No 04/10/15 8:12pm Advance Directive on File No 07/17/16 11:12am Durable POA for HC No 07/17/16 11:12am Power of Compliance Review Specialist No 07/17/16 11:12am Organ Donor No 07/17/16 11:12am Living Will No 07/17/16 11:12am Chief Complaint and Reason for Visit Chief Complaint Headache Reason for Visit [id number] Problems Active Problems Medical Problem Onset Date [...] 11/25/15 Baclofen 20 Mg 20 Mg Oral Twice A Day for Muscle Spasm 11/25/15 Albuterol Sulfate (Proventil) 1 Puff 1 Puff Inhalation As Needed as needed for Shortness Of Breath 30 Days 11/26/15 Lidocaine Hcl 20 Mg/1 Ml 5 Ml Mucous Mem Every 2 Hours While Awake as needed for Mouth Pain 120 03/28/16 Ibuprofen 800 Mg 800 Mg Oral Twice A Day for Pain 05/27/16 Promethazine Hcl 25 Mg 25 Mg Oral Every 6 To 8 Hours As Needed as needed for Nausea / Vomiting 07/17/16 Past Home Medications Medication Directions Ordered Status Lamotrigine 150 Mg Tablet, 150 Mg Oral Three Times A Day for Seizure Discontinued Ibuprofen 800 Mg Tablet, 800 Mg Oral As Needed as needed for Pain 04/10/15 Discontinued Lurasidone Hcl 40 Mg Tablet, 40 Mg Oral Once A Day for Anxiety 04/10/15 Discontinued [Vibrent] , Oral Once A Day for Anxiety 04/10/15 Discontinued Acetaminophen/Hydrocodone Bitart ([place]) 1 Each Tablet, 1 Each Oral Every [...] Needed as needed for Pain 08/26/15 Discontinued Diazepam 10 Mg Tablet, 10 Mg Oral Every 6 To 8 Hours As Needed as needed for Moderate Pain 11/25/15 Discontinued Hydrocodone/Acetaminophen 1 Each Tablet, 1 Each Oral Every 6 To 8 Hours As Needed as needed for Pain 11/25/15 Discontinued Vilazodone Hydrochloride 40 Mg Tablet, 40 Mg Oral Once A Day for Anxiety 05/01 Discontinued Levetiracetam 1,000 Mg Tab.susp, 1000 Mg Oral Three Times A Day for Seizure 11/26/15 Discontinued Hydrocodone/Acetaminophen 1 Each Tablet, 1 Each Oral Every 6 To 8 Hours As Needed as needed for Severe Pain 02/25/16 Discontinued Promethazine Hcl 25 Mg Tablet, 25 Mg Oral Every 6 To 8 Hours As Needed as needed for Nausea / Vomiting 02/25/16 Discontinued Hydrocodone Bit/Acetaminophen 1 Tab Tablet, 0.5-1 Tab Oral Every 6 To 8 Hours As Needed as needed for Pain 03/28/16 Discontinued Social History Social History Problem Response Recorded Date/Time Smoking Status Current every day smoker 07/17/2016 11:13am Smoked in the last 12 months? Yes 07/17/2016 11:13am Do you dip or chew tobacco? No 07/17/2016 11:13am Approx how many cigs per day? 20 07/17/2016 11:13am Level of Dependence Low 07/17/2016 11:13am Former smoker, last day smoked? TODAY 07/17/2016 11:13am Query Response Start Date Stop Date Smoking Status Current every day smoker Hospital Discharge Instructions No hospital discharge instructions. Plan of Care Discharge Date 07/17/16 1:30pm Disposition 01 D/C HOME Condition at Discharge Stable Instructions/Education Provided Migraine Headache (ED) Forms Provided ER Discharge Phone Call Check Prescriptions See Medication Section Referrals RAUL MORA MD - Additional Instructions/Education Go home and go to sleep. If this becomes a frequent problems, talk to your neurologist. Topamax seizure medicine is also very good for headaches. Reference Links Reference Text MIGRAINE HEADACHE OVERVIEW Headaches can be quite debilitating, although the vast majority are not due to life-threatening disorders. Approximately 90 percent of headaches are caused by one of three syndromes (table 1): ?Migraine headache ?Tension-type headaches ?Cluster headaches This article discusses migraine headaches in adults. Other types of headaches are discussed separately. (See "Patient education: Headache causes and diagnosis in adults (Beyond the Basics)" and "Patient education: Headache treatment in adults (Beyond the Basics)".) MIGRAINE HEADACHE SYMPTOMS Between 12 and 16 percent of people in the [place] experience migraine headaches, making it the second most common type of headache. Pain The pain of a migraine headache usually begins gradually, intensifies over minutes to one or more hours, and resolves gradually at the end of the attack. The headache is typically dull, deep, and steady when mild to moderate in severity; it becomes throbbing or pulsatile when severe. Migraine headaches are worsened by light, sneezing, straining, constant motion, moving the head rapidly, or physical activity. Many migraine sufferers try to get relief by lying down in a darkened, quiet room. In 60 to 70 percent of people, the pain occurs on only one side of the head. In adults, a migraine headache usually lasts a few hours, although it can last from four to 72 hours. Other symptoms Migraine headaches are often accompanied by nausea and vomiting, as well as sensitivity to light and noise. Between 10 and 20 percent of people with migraines also experience nasal stuffiness and runny nose, or teary eyes. The symptoms of a migraine attack may be severe and alarming, but in most cases there are no lasting health effects when the attack ends. Aura About 20 percent of people with migraines experience symptoms before the headache; this is called an aura. The aura may include flashing lights or bright spots, zigzag lines, changes in vision, or numbness or tingling in the fingers of one hand, lips, tongue, or lower face. You may have one or more of these aura symptoms. Auras may also involve other senses and can occasionally cause temporary muscle weakness or changes in speech; these symptoms can be frightening. Aura symptoms typically last five to 20 minutes and rarely last more than 60 minutes. The headache occurs soon after the aura stops. Muscle-related auras may last longer. MIGRAINE HEADACHE TRIGGERS Migraines can be triggered by stress, worry, menstrual periods, control pills, physical exertion, fatigue, lack of sleep, hunger, head trauma, and certain foods or drinks that contain chemicals such as nitrites, glutamate, aspartate, tyramine. A partial list of potential triggers appears in the table (table 2). Certain medications and chemicals can also trigger a migraine, including nitroglycerin (used to treat chest pain), estrogens, hydralazine (used to treat high blood pressure), perfumes, smoke, and organic solvents with a strong odor. Headache diary People who have frequent or severe headaches may benefit from keeping a headache diary over the course of one month. This can be used to determine what triggers the migraines and what makes them better. A sample diary is included here (figure 1). MIGRAINE HEADACHE TREATMENT TYPES Migraine headache treatment depends upon the frequency, severity, and symptoms of your headache. ?Acute treatment refers to medicines you can take when you have a headache to relieve the pain immediately. ?Preventive treatment refers to medicines you can take on a regular (usually daily) basis to prevent headaches in the future. Acute treatment The pain of migraines can be tough to get rid of. Treatment is most likely to work if you take it at the first sign of an attack (eg, at the first sign of aura if one occurs, or when pain begins). In some people, an aura occurs before the migraine (see 'Aura' above). Therefore, an aura can serve as a reliable warning that a migraine headache is on the way, and should be the signal to take migraine medication. (See "Acute treatment of migraine in adults".) Pain relievers Mild migraine attacks may respond to pain relievers, some of which are available without a prescription. These drugs include: ?Aspirin ?Acetaminophen ?Nonsteroidal anti-inflammatory drugs (NSAIDs) such as ibuprofen, indomethacin, or naproxen ?Indomethacin is a prescription medicine that comes in a rectal suppository, which may be useful for people who have nausea during their headaches. Pain relievers are also available in combination with caffeine, which enhances their antimigraine effect. As an example, some pain relievers contain a combination of acetaminophen, aspirin, and caffeine. Pain relievers are often recommended first for mild to moderate migraine attacks. However, they should not be used too often because overuse can lead to medication-overuse headaches or chronic daily headaches. If you respond to a pain reliever, continue taking it with each attack, as long as you do not take it more than once or twice per week. People with gastritis (inflammation of the stomach), ulcers, kidney disease, and bleeding conditions should not take products containing aspirin or NSAIDs. Anti-nausea medications If you have nausea and vomiting with a migraine, you can take an anti-nausea medicine by injection or rectal suppository. In some cases, antimigraine drugs can be taken in combination with drugs that alleviate nausea and vomiting, such as metoclopramide or prochlorperazine. Anti-nausea medications given by mouth are usually used in combination with other medications to treat acute migraine. However, anti-nausea medications can be given alone in the hospital by intravenous and intramuscular administration to treat acute migraine headache. Triptans If a pain reliever does not control your migraine pain, most healthcare providers will recommend a treatment that is migraine-specific. This includes a class of medications called triptans. Examples of triptans are sumatriptan, zolmitriptan, naratriptan, rizatriptan, almotriptan, eletriptan, and frovatriptan. Triptans can be used at home or work/school, and are all available in an oral (pill) form. Sumatriptan and zolmitriptan are available as nasal sprays, and sumatriptan is available as an injection. People with familial hemiplegic migraine, basilar migraine, uncontrolled high blood pressure, vascular disease (including ischemic stroke and coronary artery disease), Prinzmetal's angina, , and severe kidney or liver disease should not take triptans in most cases. ?Sumatriptan Sumatriptan is available in many different formulas, including a tablet, nasal spray, and injection. Over 70 percent of people get pain relief within one hour of injecting sumatriptan; by two hours, 90 percent of people notice improvement. Your healthcare provider can help to decide which formula (pill, nasal spray, or shot) is best for you. Common side effects of injectable sumatriptan include pain at the injection site, dizziness, a feeling of warmth, and tingling in the arms or legs. Most of these reactions occur soon after the injection and resolve within 30 minutes. These drugs are safe for most patients. Sumatriptan nasal spray begins to work faster than the pill form and has fewer side effects than the injection. The most common side effect of the nasal spray is an unpleasant taste. A tablet that contains a combination of sumatriptan-naproxen appears to be more effective than each medication taken alone. It is not known if taking the two medications separately would be as effective as the combination tablet. Ergots Ergotamine is an older, migraine-specific drug. It is often combined with caffeine. Ergots are not usually as effective as triptans and are more likely to cause side effects. Ergots are sometimes recommended for people with migraines of a long duration (greater than 48 hours) or that frequently recur. People with high blood pressure, coronary artery disease, or kidney or liver disease should not use ergotamines. Dihydroergotamine is related to ergotamine, and can be taken by nasal spray for mild or moderate migraine attacks. It can also be given by injection for severe attacks. Other medications Other medications for migraine are not as well studied or are less effective. A small percentage of people with migraine headaches do not respond to routine acute treatments and may require additional treatment for pain. Dexamethasone is a glucocorticoid (steroid) medication that can be given by injection, along with another acute migraine treatment, to reduce the risk of a migraine coming back. Dexamethasone injections may be given in an emergency department or clinic. Preventive treatment Preventive treatment effectively controls migraine headaches in most people, although the benefits of this treatment may not be evident for three to four weeks. In some cases, both acute treatment and preventive treatment are necessary to adequately control migraines. (See "Preventive treatment of migraine in adults".) Beta blockers Beta blockers were originally developed to treat high blood pressure. In addition, beta blockers reduce the frequency of migraine attacks in 60 to 80 percent of people. Commonly used beta blockers include propranolol, nadolol, atenolol, and metoprolol. Beta blockers may cause depression in some people or impotence in some men. Antidepressant medications Tricyclic antidepressants (TCAs) and certain other antidepressant medications are often recommended for migraine prevention. These include amitriptyline, nortriptyline, and doxepin. Of these, amitriptyline has proven benefit for migraine prevention, while there is less data for the other tricyclics. Side effects are common with tricyclic antidepressants. Most of these drugs cause drowsiness, particularly amitriptyline and doxepin. Therefore, these drugs are usually taken at bedtime and started at a low dose. Additional side effects of tricyclics can include dry mouth, constipation, palpitations, weight gain, blurred vision, and urinary retention. Confusion can occur, particularly in older adults. Anti-seizure medications The anti-seizure medications valproate (also called divalproex), gabapentin, and topiramate are sometimes used to prevent migraines. ?Valproate is an anti-seizure drug that seems to work as well as beta blockers for preventing migraine, and may be better tolerated. However, valproate can cause weight gain and hair loss. Women who are or sexually active and not using control (pills, condoms, etc) should not take valproate. ?Gabapentin was effective for reducing migraine headache frequency in a small clinical trial. Potential side effects include lightheadedness, drowsiness, dizziness, and balance problems. ?Topiramate is an anti-seizure drug that can help to prevent migraine. It can cause mild to moderate side effects that may include abnormal sensations (often tingling), fatigue, nausea, changes in taste, loss of appetite, diarrhea, and weight loss. More severe side effects can occur, including difficulty with thinking and concentration. Calcium channel blockers Calcium channel blockers were developed to treat high blood pressure. Calcium channel blockers are widely used for migraine prevention. Examples of calcium channel blockers include verapamil and nifedipine extended-release. Verapamil is frequently used as a first choice for preventive migraine therapy because it is easy to use and has few side effects. Calcium channel blockers may lose their effectiveness over time, but this can sometimes be remedied by taking a higher dose of the drug or switching to a similar drug. Herbal therapies Herbal therapies have been evaluated for the treatment of migraine headache, including feverfew and butterbur. Of these, feverfew has been the most widely studied. Some studies have found it to be effective for migraine prevention, although most experts agree that the benefits are still unproven. Neither treatment is recommended. Avoiding medication overuse It is essential to use antimigraine medications according to the prescription and clinician's instructions. Overuse of certain medications for migraine, including [id number] drugs such as acetaminophen and nonsteroidal antiinflammatory drugs, or prescription drugs such as triptans, can lead to medication-overuse headaches (also called rebound headaches) and to a pattern of daily headaches that require increasing quantities of drugs for relief. A vicious cycle occurs when frequent headaches cause you to take medications, which then cause rebound headaches as the medications wear off, causing you to take more medication, and so on. (See "Patient education: Headache treatment in adults (Beyond the Basics)".) Speak with a healthcare provider if your migraine treatment does not relieve your headaches or if you are having unpleasant medication side effects. Switching to another drug or switching from acute treatment to preventive treatment may be helpful. MENSTRUAL MIGRAINES Migraines occur about three times more commonly in women than in men. Estrogen has a variable effect on the frequency and severity of a woman's migraines; some women who take control pills (which contain estrogen) or hormone replacement therapy experience worsening headaches, while others improve. Similarly, some women have more frequent or severe headaches during while others have improvement. (See "Estrogen-associated migraine".) Menstrual migraines are migraine headaches that occur around the beginning of a woman's menstrual period (usually two days before to three days after the period begins). Women with menstrual migraine may also have migraines at other times during the month. Most often, there is no migraine aura associated with menstrual migraines, even if the woman usually has aura at other times. Menstrual migraines are thought to be triggered by the normal decrease in estrogen levels that occurs before the menstrual period begins. Menstrual migraines tend to be longer lasting, more severe, and more resistant to treatment than other types of migraine. Treatment Initial treatment of acute menstrual migraine is the same as treatment for migraine occurring at any other time. (See 'Acute treatment' above.) Preventive therapies for menstrual migraine can be either nonspecific (those that do not address the hormonal trigger) or specific (hormone-based treatments). (See "Estrogen-associated migraine", section on 'Preventive therapies'.) With nonspecific strategies, success requires accurate anticipation of menses for scheduling interventions; therefore, women with irregular cycles are not good candidates for these options. Coexisting problems, such as dysmenorrhea, menorrhagia, endometriosis, as well as contraception needs may influence choice of preventive therapy. A preventive treatment may be useful for women who have menstrual migraines on a predictable schedule. This treatment strategy is called "mini-prophylaxis". ?Nonsteroidal antiinflammatory drugs (NSAIDs) such as ibuprofen or naproxen are one option for mini-prophylaxis of menstrual migraine. ?Triptans such as frovatriptan, sumatriptan, or naratriptan are another option. Typically, long-acting triptans are dosed twice daily beginning two days before anticipated menses and continued for five days. Hormonal treatments may be recommended to prevent menstrual migraines. One approach is to use estrogen-progestin contraceptive pills in an extended cycle; another choice is menstrually-targeted supplemental estrogen. These treatments work by preventing a rapid decline in the level of estrogen in the body before the menstrual period, which is believed to trigger the migraine. However, some experts avoid treatment with estrogen-progestin contraceptives for women who have a menstrual migraine with aura. Others consider the use of such treatment only for healthy women younger than age 35 who do not have focal neurologic signs and who do not smoke. Functional Status Query Response Date Recorded Activities of Daily Living Performs w/o Assistance July 17, 2016 11:13am Cognitive Function Intact July 17, 2016 11:13am Allergies, Adverse Reactions, Alerts Allergen Type Severity Reaction Status Last Updated Morphine Allergy Intermediate SWELLING AT INJECTION SITE Active 04/10/15 Aspirin Allergy Severe VOMIT, CONVUSIONS Active 04/10/15 Immunizations No immunization records. Vital Signs Acute Vital Signs Vital Response Date/Time Temperature (Fahrenheit) 98.2 degrees F (97.6 - 99.5) 07/17/2016 1:30pm Temperature (Calculated Celsius) 36.97861 degrees C (36.4 - 37.5) 07/17/2016 1:30pm Temperature Source Temporal Artery Scan 07/17/2016 1:30pm Pulse Pulse Ox Pulse Rate (adult) 79 beats per minute (60 - 90) 07/17/2016 1:30pm Pulse Location Modifier Left 07/17/2016 1:30pm Oxygen Saturation Respiratory Rate 15 breaths per minute (12 - 24) 07/17/2016 1:30pm O2 Sat by Pulse Oximetry 96 % (90 - 100) 07/17/2016 1:30pm Blood Pressure 100/63 mm Hg 07/17/2016 1:30pm Blood Pressure Mean 75 mm Hg 07/17/2016 1:30pm Height 5 ft 8 in Weight 221 lb Body Mass Index 33.6 kg/m^2 Results Pending Laboratory Results Test Name Collection Date/Time Procedures Procedure Status Date Provider(s) EMERGENCY DEPT VISIT Completed 11/25/15 EMERGENCY DEPT VISIT Completed 11/25/15 THER/PROPH/DIAG INJ IV PUSH Completed 11/25/15 TX/PRO/DX INJ NEW DRUG ADDON Completed 11/25/15 TX/PRO/DX INJ SAME DRUG DEMAND PLANNING ANALYST Completed 11/25/15 X-RAY EXAM UNILAT RIBS/CHEST Completed 01/13/16 THER/PROPH/DIAG INJ IA Completed 02/24/16 EMERGENCY DEPT VISIT Completed 02/24/16 INJECTION, HYDROMORPHONE, UP TO 4 MG Completed INJECTION, DIAZEPAM, UP TO 5 MG Completed EMERGENCY DEPT VISIT Completed 02/24/16 ROUTINE VENIPUNCTURE Completed 03/28/16 CT HEAD/BRAIN W/O [...] Completed 05/05/16 EMERGENCY DEPT VISIT Completed 05/27/16 Encounters Encounter Location Arrival/Admit Date Discharge/Depart Date Attending Provider Departed Emergency Room [facility] 07/17/16 11:10am 07/17/16 1: 30pm BELEN CANCINO MD Departed Emergency Room [facility] 05/27/16 10:00am 05/27/16 12: 00pm YULIET ABDALLA Registered [facility] 05/05/16 8:41am RAUL MORA MD Departed Emergency Room [facility] 03/28/16 7:10pm 03/28/16 9: 05pm TRAM WALSH APRN Departed Emergency Room [facility] 02/24/16 11:45pm 02/25/16 1: 00am ALLEN PRESTON APRN Registered [facility] 01/15/16 9:02am RAUL MORA MD Registered [facility] 01/13/16 9:47am RAUL MORA MD Departed Emergency Room [facility] 11/25/15 10:49pm 11/26/15 12: 21am ALLEN PRESTON APRN Departed Emergency Room [facility] 11/25/15 3:45pm 11/25/15 5: 50pm ALLEN PRESTON APRN Registered Clinic [facility] 10/22/15 2:40pm RAUL MORAN Recent Diagnosis
--- OUTSIDE RECORDS SUMMARY | 2017-04-17 23:36 | XMS REPORT ---
Author Author Devon Brown Organization [facility] Address [address] [place] [phone] Care Team Providers Care Customs Compliance Analyst Name Role Phone Devon Brown PCP Unavailable [...] Number Start Date Medicare RHC Medicare RHC [id number] N/A [facility] - RHC - Community Plan [facility] RHC Comm [id number] N/A Medicare Part A Medicare - Lab/Xray [id number] N/A [facility] Comm Plan of [id number] [place] Medicare Part B Medicare Of [place] [id number] Wednesday, December 16, 2015 History of Encounters Visit Date Visit Type Provider 04/06/2017 Office visit Devon Brown MD 03/11/2017 Office visit Zahida aBxter MD 01/26/2017 Office visit Shanda Nielsen APRN [...]
--- OUTSIDE RECORDS SUMMARY | 2017-04-17 23:37 | XMS REPORT ---
Author Author Zahida Baxter [facility] Address [address] [place], [place] [id number] Care Team Providers Care Video Game Developer Name Role Phone Zahida Baxter PCP Unavailable [...] and immunofixation electrophoresis 2015 12:00 AM US EXTREMITY SONO, NONVASCULAR, COMPLETE 09/15/2016 12:00 AM Polysomnography 09/15/2016 12:00 AM irregular [...] EVERY 6 HOURS NEEDED for 30 days Name Start Date Expiration [...] HC BMI BSA BMI Percentile O2 Sat(%) 09/15/2016 11:19:00 AM 118 mmHg 72 mmHg [...] % Social History Name Description Comments Tobacco Former smoker Pt quit smoking 09/02/2016 Alcohol Light Disabled History of Procedures Date [...] both lower extremities Sep 15 2016 11:32AM Payers Insurance Name Company Name Plan Name Plan Number Policy Number Policy Group Number Start Date Medicare Part B [employer] [place] [id number] Wednesday, 2015 [facility] Plan of [id number] May History of Encounters Visit Date Visit Type Provider 09/15/2016 Office visit Zahida Baxter MD 08/18/2016 [...]
--- OUTSIDE RECORDS SUMMARY | 2017-04-17 23:37 | XMS REPORT ---
Author Author Dylan Morejon [facility] Address [address] [place], [place] [id number] Care Team Providers Care Manager Bakery Name Role Phone Dylan Morejon PCP Allergies [...] Date Medicare Part B [employer] [place] [id number] Wednesday, 2015 [facility] Plan of [id number] May History of Encounters Visit Date Visit Type Provider 01/08/2016 Office visit 01/08/[address] Dylan Morejon MD 12/04/2015 Office visit 12/04/[address] Dylan Morejno MD
--- OUTSIDE RECORDS SUMMARY | 2017-04-17 23:38 | XMS REPORT ---
Author Author Shanda Nielsen [facility] Address [address] [place], [place] [id number] Care Team Providers Care Medical I D Sales Name Role Phone Shanda Nielsen PCP Unavailable Allergies and Adverse Reactions Name [...] oral tablets,dose pack 01/26/2017 take as directed Name Start Date Expiration Date SIG Comments [...] HC BMI BSA BMI Percentile O2 Sat(%) 01/26/2017 11:00:00 AM 124 mmHg 78 mmHg [...] recurrence not specified Jan 26 2017 11:02AM Payers Insurance Name Company Name Plan Name Plan Number Policy Number Policy Group Number Start Date Medicare RHC Medicare RHC [id number] N/A [facility] RHC Comm [id number] N/A Medicare Part A Medicare - Lab/Xray [id number] N/A [facility] Comm Plan of [id number] [place] Medicare Part B [employer] [place] [id number] Wednesday, December 16, 2015 History of Encounters Visit Date Visit Type Provider 01/26/2017 Office visit Shanda Nielsen ECONOMICS INSTRUCTOR 01/22/2017 Office visit Zahida Baxter MD 11/03/2016 [...]
--- OUTSIDE RECORDS SUMMARY | 2017-04-17 23:38 | XMS REPORT | Continuity of Care Document ---
Author Author [facility] Organization [facility] Address [address] [place] [address] Phone Unavailable Care Team Providers Care Manhole Stripper Name Role Phone DEE STARKS MD PCP Insurance Providers Payer Name Policy Number Subscriber Name Relationship Medicare [id number] Joleen Jeffries 16 Self / Same As Patient [employer] [facility] Comm Plan [id number] Joleen Jeffries 16 Self / Same As Patient Advance Directives Directive Response Recorded Date/Time Living Will No 01/13/16 9:42am Advance Directives No 04/10/15 8:12pm Advance Directive on File No 11/04/16 2:03pm Durable POA for HC No 11/04/16 2:03pm Power of Education Program Associate No 11/04/16 2:03pm Organ Donor No 11/04/16 2:03pm Living Will No 11/04/16 2:03pm Chief Complaint and Reason for Visit Chief Complaint Seizure Reason for Visit [id number] Problems Active Problems Medical Problem Onset Date [...] Day for Anxiety 04/10/15 Discontinued Acetaminophen/Hydrocodone Bitart ([place]) 1 Each Tablet, 1 Each Oral Every [...] Problem Response Recorded Date/Time Alcohol Use none 11/04/2016 2:14pm Drug Use none 11/04/2016 2:14pm Smoking Status Current every day smoker 11/04/2016 2:03pm Smoked in the last 12 months? Yes 11/04/2016 2:03pm Do you dip or chew tobacco? No 11/04/2016 2:03pm Approx how many cigs per day? 20 11/04/2016 2:03pm Level of Dependence High 11/04/2016 2:03pm Former smoker, last day smoked? TODAY 11/04/2016 2:03pm Query Response Start Date Stop Date Smoking Status Current every day smoker Hospital Discharge Instructions No hospital discharge instructions. Plan of Care Discharge Date 11/04/16 5:00pm Disposition 01 D/C HOME Condition at Discharge Stable and Improved Instructions/Education Provided Recurrent Seizures in Adults (ED) Forms Provided ER Discharge Phone Call Check Prescriptions See Medication Section Referrals DEE STARKS MD - Additional Instructions/Education Call to make an appointment for f/u with your doctor Continue with your current medications and discuss possible neuro referral as discussed Get lots of rest and drink large amount of fluids Functional Status Query Response Date Recorded Activities of Daily Living Performs w/o Assistance November 04, 2016 2:03pm Cognitive Function Intact November 04, 2016 2:03pm Allergies, Adverse Reactions, Alerts Allergen Type Severity Reaction Status Last Updated Morphine Allergy Intermediate SWELLING AT INJECTION SITE Active 04/10/15 Aspirin Allergy Severe VOMIT, CONVUSIONS Active 04/10/15 Immunizations No immunization records. Vital Signs Acute Vital Signs Vital Response Date/Time Temperature (Fahrenheit) 97.7 degrees F (97.6 - 99.5) 11/04/2016 5:52pm Temperature (Calculated Celsius) 36.28479 degrees C (36.4 - 37.5) 11/04/2016 5:52pm Temperature Source Temporal Artery Scan 11/04/2016 5:52pm Pulse Pulse Ox Pulse Rate (adult) 85 beats per minute (60 - 90) 11/04/2016 1:59pm Pulse Location Modifier Left 11/04/2016 1:57pm Oxygen Saturation Respiratory Rate 16 breaths per minute (12 - 24) 11/04/2016 5:52pm O2 Sat by Pulse Oximetry 97 % (90 - 100) 11/04/2016 5:52pm Blood Pressure 117/68 mm Hg 11/04/2016 5:52pm Blood Pressure Mean 84 mm Hg 11/04/2016 5:52pm Height 5 ft 8 in Weight 0 lb Body Mass Index 0.0 kg/m^2 Results Pending Laboratory Results Test Name Collection Date/Time Procedures Procedure Status Date Provider(s) X-RAY EXAM UNILAT RIBS/CHEST Completed 01/13/16 THER/PROPH/DIAG [...] INJECTION, HYDROMORPHONE, UP TO 4 MG Completed Encounters Encounter Location Arrival/Admit Date Discharge/Depart Date Attending Provider Departed Emergency Room [facility] 11/04/16 1:55pm 11/04/16 5: 00pm ALLEN PRESTON APRN Departed Emergency Room [facility] 07/17/16 11:10am 07/17/16 1: 30pm BELEN CANCINO MD Departed Emergency Room [facility] 05/27/16 10:00am 05/27/16 12: 00pm YULIET ABDALLA Registered [facility] 05/05/16 8:41am RAUL MORA MD Departed Emergency Room [facility] 03/28/16 7:10pm 03/28/16 9: 05pm TRAM WALSH APRN Departed Emergency Room [facility] 02/24/16 11:45pm 02/25/16 1: 00am ALLNE PRESTON APRN Registered [facility] 01/15/16 9:02am RAUL MORA MD Registered [facility] 01/13/16 9:47am RAUL MORA MD Recent Diagnosis
--- OUTSIDE RECORDS SUMMARY | 2017-04-17 23:38 | XMS REPORT | Continuity of Care Document ---
Author Author [facility] Organization [facility] Address 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 Name Role Phone RAUL MORAN PCP tel: Insurance Providers Payer Name Policy Number Subscriber Name Relationship [facility] Comm Plan [id number] Joleen Jeffries 16 Self / Same As Patient Advance Directives Directive Response Recorded Date/Time Advance Directives No 04/10/15 8:12pm Advance Directive on File No 08/11/15 5:52pm Durable POA for HC No 08/11/15 5:52pm Power of Inventory Control Clerk No 08/11/15 5:52pm Organ Donor No 08/11/15 5:52pm Living Will No 08/11/15 5:52pm Chief Complaint and Reason for Visit Chief Complaint Seizure Reason for Visit [id number] Problems Active Problems Medical Problem Onset Date Status Cyst of ovary, right Unknown Acute Epilepsy seizure, generalized, convulsive Unknown Acute Medications Current Home Medications Medication Dose Units Route Directions Days/Qty Instructions Start Date Acetaminophen/Hydrocodone Bitart (Mercedita 5/325 Mg Tablet) 1 Each 1 Each Oral Every Eight Hours as needed for Pain 20 04/10/15 Clonazepam 1 Mg Oral Three Times A Day 10 08/11/15 Ibuprofen 800 Mg Oral As Needed as needed for Pain 04/10/15 Lamotrigine (Lamictal) 150 Mg 150 Mg Oral Three Times A Day for Seizure 04/10/15 Lidocaine Hcl (Lidocaine Viscous) 20 Mg/1 Ml 20 Mg Mucous Mem Every 4 To 6 Hours As Needed as needed for Pain 60 08/11/15 Lurasidone Hcl (Latuda) 40 Mg 40 Mg Oral Once A Day for Anxiety Past Home Medications Medication Directions Ordered Status Ondansetron (Ondansetron Odt) 4 Mg Tab.rapdis, 4 Mg Oral Every 6 To 8 Hours As Needed as needed for Nausea / Vomiting 04/10/15 Discontinued Vibrent , Oral Once A Day for Anxiety 04/10/15 Discontinued Social History Social History Problem Response Recorded Date/Time Smoking Status Current every day smoker 08/11/2015 5:53pm Smoked in the last 12 months? No 08/11/2015 5:53pm Do you dip or chew tobacco? No 08/11/2015 5:53pm Approx how many cigs per day? 20 08/11/2015 5:53pm Level of Dependence High 08/11/2015 5:53pm Former smoker, last day smoked? 08/11/15 08/11/2015 5:53pm Query Response Start Date Stop Date Smoking Status Current every day smoker 08/11/2015 Hospital Discharge Instructions No hospital discharge instructions. Plan of Care Discharge Date 08/11/15 7:15pm Disposition 01 D/C HOME Condition at Discharge Stable Instructions/Education Provided Recurrent Seizures in Adults (ED) Forms Provided ER Discharge Phone Call Check Prescriptions See Medication Section Referrals RAUL MORAN - Additional Instructions/Education Warm soaks on the muscles will also help, but do not get in a bath tub (people have drowned from a seizure in a bathtub). Reference Links Reference Text WHAT IS A SEIZURE? The brain contains billions of neurons ( nerve cells) that create and receive electrical impulses. Electrical impulses allow neurons to communicate with one another. During a seizure, there is abnormal and excessive electrical activity in the brain. This can cause changes in awareness, behavior, and/or abnormal movements. This activity usually lasts only a few seconds to minutes. Epilepsy refers to a condition in which a person has a risk of recurring epileptic seizures. Not everyone who has had a seizure has epilepsy. Nonepileptic seizures can be caused by other conditions such as low blood sugar, a fainting spell, or an anxiety attack. SEIZURE SYMPTOMS Seizure types One of the most common seizure types is a convulsion. This may be called a "tonic clonic" or "grand mal" seizure. In this type of seizure, a person may stiffen and have jerking muscle movements; during the muscle-jerking, the person may bite their tongue, causing bleeding or frothing at the mouth. Other seizure types are less dramatic. Shaking movements may be isolated to one arm or part of the face. Alternatively, the person may suddenly stop responding and stare for a few seconds, sometimes with chewing motions or smacking the lips. Seizures may also cause "sensations" that only the patient feels. As an example, one type of seizure can cause stomach discomfort, fear, or an unpleasant smell. Such subjective feelings are commonly referred to as auras. A person usually experiences the same symptoms with each seizure aura. Sometimes, a seizure aura can occur before a convulsive seizure. Seizure triggers A minority of people have seizure triggers, such as strong emotions, intense exercise, loud music, or flashing lights. When these triggers are at play, they usually immediately precede the seizure. Although they are more difficult to link to a seizure, other factors can also increase the likelihood that a seizure will happen. As an example, fever, menstrual periods, a lack of sleep, and stress can all increase the risk of seizures in some people. After a seizure (postictal state) For many seizure types, you may be unaware during the seizure. When you are told about your behavior during the seizure, you may not believe it because you have no memory of the event. The period following a seizure is called the postictal state. During this time, you may be confused and tired, and you may develop a throbbing headache. This period usually lasts several minutes, although it can last for hours or even days. In some people, the postictal period comes with certain symptoms. For example, you may experience mild to severe weakness in a hand, arm, or leg. Other people have difficulty speaking or experience temporary (partial) vision loss or other types of sensory loss. These can be important clues about the type of seizure and the part of the brain that was affected during the seizure. SEIZURE CAUSES As noted earlier, all seizures are not caused by epilepsy. There are three broad categories of seizure causes: ?Epileptic seizures People with epilepsy have a type of brain dysfunction that intermittently causes episodes of abnormal electrical activity. This can be caused by any type of brain injury, such as trauma, stroke, brain infection, or a brain tumor. In some individuals, epilepsy is an inherited condition. In many cases, the cause of epileptic seizures is not clear. ?Provoked seizures A similar type of abnormal electrical activity in the brain can be caused by certain drugs, alcohol withdrawal, and other imbalances, such as a low blood sugar. Seizures that are caused by problems like these are called "provoked" seizures, and they do not usually occur again once the problem is remedied. People with provoked seizures are not said to have epilepsy. ?Nonepileptic seizures Nonepileptic seizures look like seizures, but are not caused by abnormal brain activity. These seizures may be due to fainting spell, a muscle disorder, or a psychological condition. SEIZURE DIAGNOSIS If you have a seizure and have never had one before, your healthcare provider will want to get as much information about the seizure as possible. He or she will want to know a detailed description of the episode, if you lost consciousness, stared blankly, or twitched and jerked violently. The more information your healthcare provider has about your seizure, the better able he or she will be to make the right diagnosis. If a witness to the seizure is available and can come to the appointment or be contacted later, this can be very helpful to the physician. Tests and procedures Depending on the circumstances of your seizure, your age, and your individual situation, your healthcare provider may order one or more tests, including: ?Blood tests may be done to check for problems (such as low or high blood sugar) that may have caused your seizure, and to check for markers in the blood that could point to the type of seizure you had. ?Lumbar puncture (spinal tap) may be done after a seizure to check for signs of infection. This is usually done in an emergency room, if the individual does not seem to be recovering normally from the seizure, or if the person has a fever or other signs of brain infection. During this test, a needle is inserted into the space surrounding the spinal cord and a fluid sample is taken. The sample is checked for bacteria or other signs of signs of infection, such as an abundance of white blood cells. ?Electroencephalography (EEG) may be done to check for abnormal electrical activity in the brain. During this test, electrode pads are placed on your scalp. The clinician may try to induce an abnormality in the EEG by having the vehicle monitor technician use flashing lights or ask you to hyperventilate. Both of these maneuvers may produce abnormalities in your brain waves, which could be helpful in determining your diagnosis. ?Brain imaging studies, such as MRI or CT scans, may be done to check for tumors, strokes, or other structural problems in the brain. However, these tests are often normal in people with epilepsy. SEIZURE TREATMENT The appropriate treatment of your seizure will depend upon what type of seizure you had and whether the seizure was caused by epilepsy or another factor. As an example, if your seizure was caused by an infection affecting the brain, treatment of the infection should prevent you from having more seizures. Likewise, if your seizure was caused by a psychological problem, such as anxiety, treatment of the psychological problem should remedy the seizures. Seizure medications If you have epilepsy or if your seizure was caused by a stroke, tumor, or some type of permanent brain injury, you may to take one or more anti-seizure medications, referred to as antiseizure drugs. (See "Initial treatment of epilepsy in adults".) Anti-seizure medications prevent or reduce the number or severity of a person's seizures. Healthcare providers may not recommend starting these drugs until you have had at least two seizures, in part to make sure that the first seizure was not an isolated incident. However, your healthcare provider may recommend an anti-seizure medication after a single seizure if you are at high risk of having a second seizure or if you are at high risk of injury related to the seizure. Starting anti-seizure medication therapy early reduces the risk of another seizure and is generally safe. However, many people dislike taking medications every day, and anti-seizure medications can cause side effects and carry certain risks. Discuss the options for starting an anti-seizure medication with your healthcare provider. Choosing a seizure medication In selecting a medication, your healthcare provider will consider your seizure type as well as other medical conditions that you might have and medications you may be taking. Finding the right anti- seizure medication may require a number of adjustments in medications and dosages. You will meet regularly with your healthcare provider when you are first trying a new medication, and will start with a low dose and slowly increase it, so that you can find the lowest effective dose. Only about half of the people with a new diagnosis of epilepsy stop having seizures with the first anti-seizure medication [1,2]. That means that most people have to try more than one medication before they find one that works well. The best medication is one that offers the most protection from seizures with the fewest possible side effects. The good news is that there are many anti-seizure medications to choose from, so the chances are good that you will find one that works without too many side effects. If you take an anti-seizure medication that causes uncomfortable side effects, such as a skin rash, tell your healthcare provider. In some cases, side effects will go away once you have been taking the medication for a while. In other cases, your healthcare provider may lower your dose or switch you to another medication that is less likely to cause side effects. If a single anti-seizure medication is not effective, your provider may suggest combining two anti-seizure medications. Although this is a sound strategy, combinations of anti-seizure medications are not usually recommended until you have tried at least two anti-seizure medications. Generic anti-seizure medications Several anti-seizure medications are available as generic formulations, which can help you to save money on the cost of your prescriptions. Generic medications should be as effective as the brand name drug. However, if your clinician has determined that you need a specific brand or form of medication to control your seizures, be sure that your prescription includes the statement "no interchange" or "no substitution." This lets your pharmacist and insurance company know that the generic drug should not be substituted for the brand name drug. Side effects Each anti-seizure medication can cause side effects, which can affect each person differently. Anyone taking an anti-seizure medication should be aware of some side-effects. These include the following: ?An increased risk of becoming suicidal. If you start to become depressed or have thoughts of harming yourself or others while taking an anti-seizure medication, speak to your healthcare provider right away. (See 'Psychological and social issues' below.) ?A rare but serious skin disorder called Monet-Barrett syndrome, which can cause fever and a painful, sometimes blistering, rash that eventually kills the top layer of skin. This side effect is most likely to happen in people taking carbamazepine, oxcarbazepine, phenytoin, and lamotrigine, and it is mostly likely to occur within the first two months of use. If you notice a severe rash while taking an anti-seizure medication, call your healthcare provider right away. ?A weakening of the bones (osteoporosis). This can occur after long-term use of anti-seizure medications. There are steps you can take to protect and strengthen your bones. If you are concerned about your bone health, or are at risk for osteoporosis, ask your healthcare provider what you can do to keep your bones as healthy as possible. (See "Patient information: Osteoporosis prevention and treatment (Beyond the Basics)" and "Patient information: Calcium and vitamin D for bone health (Beyond the Basics)" and "Antiseizure drugs: Mechanism of action, pharmacology, and adverse effects".) Seizures that persist despite medication Although anti-seizure medications work for many people with seizure disorders, some people continue to have seizures even after trying several medications. For them, other treatments may be an option. For example, surgery to remove the portion of the brain causing the seizures or severing the connection between the two halves of the brain can reduce or eliminate seizures in some people. (See "Surgical treatment of epilepsy in adults".) Others may benefit from treatment with an implanted electrical device such as a vagal nerve stimulator or responsive cortical neurostimulation device. (See "Vagus nerve stimulation therapy for the treatment of epilepsy" and "Evaluation and management of drug-resistant epilepsy", section on 'Cortical stimulation'.) What's more, several experimental treatments are in development. If you cannot adequately control your seizures with medication, ask your healthcare provider if any other treatment strategies might be appropriate for you. Referral to a neurologist who specializes in epilepsy may be indicated if seizures do not come under control with a single medication or if there are questions about the cause of the seizure disorder. Increasing your chance for success The things you do can have a big impact on how well your anti-seizure medication works. ?Take your medication exactly as directed, at the right times, and at the right doses. Ask your healthcare provider to write down any special instructions. ?Ask what side effects you can expect and what to do about them. Even if you develop uncomfortable side effects, don't stop taking your anti-seizure medication without first speaking to your healthcare provider. ?Be careful not to let your prescription run out. Stopping anti-seizure medication abruptly can put you at risk of seizure. ?While taking an anti-seizure medication, do not start taking any other medications including vgun-imu-dwhemss medications and herbal supplements without first checking with your healthcare provider. Anti-seizure medication can interact with prescriptions, aikk-iso-hwfeuao medications, and herbal supplements, so mixing them can be dangerous. LIVING WITH SEIZURES Seizure calendar Especially when you first start taking a new medication, it's a good idea to keep a record of seizures as they occur. On a calendar, note any seizures you may have had, and ask those around you to help you keep track. Note, too, any seizure triggers, such as days when you were sleep-deprived, stressed, drank alcohol, or (if you are a woman) had your period. If medication side effects are a problem for you, use the calendar to record them as well. Then bring this calendar with you when you see your healthcare provider. That way, the two of you can work together to understand the factors that contribute to your seizures. Keep appointments Your healthcare provider may ask to see you on a regular basis, especially soon after you start taking anti-seizure medication. These visits are important because they allow your healthcare provider to: ?Check how well your medication is working ?Find out whether you are having troubling side effects ?Make sure that your kidneys and liver are working properly (anti-seizure medications can sometimes strain these organs) ?Monitor the level of medication in your blood Use the check-up visits to alert your healthcare provider to any problems you may be having, either with your medication or overall health. Having a seizure disorder can be trying, but your healthcare provider can provide insight or solutions if your seizures are presenting obstacles. Women who may become and who require anti-seizure medications should talk to their healthcare provider about their plans for . Anti-seizure medications can affect the health of a developing fetus, and they can interfere with the effects of certain control methods, so this discussion is important for women regardless of whether or not you want to get . (See "Patient information: control; which method is right for me? (Beyond the Basics)" and "Management of epilepsy and " and "Risks associated with epilepsy and ".) Psychological and social issues Having a seizure disorder can be emotionally difficult for a number of reasons. For starters, seizures can be frightening for you and for your friends and loved ones. Depending on their frequency and severity, seizures can also interfere with your ability to drive or even work. Plus, the medications used to control seizures can sometimes cause you to feel depressed or suicidal. If you become depressed or suicidal, or are just having a hard time with your condition, speak to your healthcare provider about your concerns. There may be treatments, services, or strategies that can help you overcome the hurdles you are facing. You may even decide to seek out a support group for people with epilepsy. If nothing else, this will give you a forum in which to discuss issues that affect people like you. Driving restrictions States vary widely in dedicated truck driver licensing requirements for people with epilepsy. The most common requirements are that you be free of seizures for a specified period of time and that you submit a doctor's evaluation of your ability to drive safely. (See "Driving restrictions for patients with seizures and epilepsy".) A listing of individual state driving requirements can be found on the Epilepsy Foundation Website at www.epilepsyfoundation.org/resources/drivingandtravel.cfm. Alcohol If your seizures are well controlled, it may be acceptable to drink small amounts of alcohol (no more than one to two drinks per day). But drinking excessively (three or more drinks per day) increases the risk of seizures, particularly in the hours and days after you drink. What's more, alcohol can interfere with the efficacy of anti-seizure medications. For these reasons, you should limit the amount of alcohol you drink and use caution if you do drink. SUMMARY After you have had a seizure, your healthcare provider's first priority will be to determine what type of seizure you had and whether it was caused by a problem unrelated to epilepsy that can be corrected. He or she will likely ask you a series of questions, examine you, and order several tests. If you need to begin treatment with an anti-seizure medication, it's important that you and your healthcare provider come up with a plan together about how you will take your medication and what you will do if you develop side effects or continue to have seizures. Remember, if one medication does not work for you, either because you cannot tolerate the side effects or because you continue to have seizures, your healthcare provider can suggest alternate medications or alternate methods of taking the medication. Functional Status Query Response Date Recorded Activities of Daily Living Performs w/o Assistance August 11, 2015 5:53pm Cognitive Function Moderately Impaired August 11, 2015 5:53pm Allergies, Adverse Reactions, Alerts Allergen Type Severity Reaction Status Last Updated Morphine Allergy Intermediate SWELLING AT INJECTION SITE Active 04/10/15 Aspirin Allergy Severe VOMIT, CONVUSIONS Active 04/10/15 Immunizations No immunization records. Vital Signs Acute Vital Signs Vital Response Date/Time Temperature (Fahrenheit) 99 degrees F (97.6 - 99.5) 08/11/2015 5:47pm Temperature (Calculated Celsius) 37.2252 degrees C (36.4 - 37.5) 08/11/2015 5 :47pm Temperature Source Temporal Artery Scan 08/11/2015 5:47pm Pulse Pulse Ox Pulse Rate (adult) 88 beats per minute (60 - 90) 08/11/2015 5:47pm Pulse Location Modifier Right 08/11/2015 5:47pm Oxygen Saturation Respiratory Rate 24 breaths per minute (12 - 24) 08/11/2015 5:47pm O2 Sat by Pulse Oximetry 90 % (90 - 100) 08/11/2015 5:47pm Blood Pressure 110/77 mm Hg 08/11/2015 5:47pm Blood Pressure Mean 88 mm Hg 08/11/2015 5:47pm Height 5 ft 8.5 in Weight 234 lb Body Mass Index 35.1 kg/m^2 Results No known relevant diagnostic tests, laboratory data and/or discharge summary. Procedures No known history of procedures. Encounters Encounter Location Arrival/Admit Date Discharge/Depart Date Attending Provider Departed Emergency Room [facility] 08/11/15 5:47pm 08/11/15 7: 15pm BELEN CANCINO MD Recent Diagnosis
--- OUTSIDE RECORDS SUMMARY | 2017-04-17 23:39 | XMS REPORT ---
Author Author Zahida Baxter [facility] Address [address] [place] [id number] Care Team Providers Care Clerical Support Specialist Name Role Phone Zahida Baxter PCP Unavailable [...] 2015 12:00 AM Polysomnography 09/15/2016 12:00 AM US VENOUS UPP OR LOW EXT UNILATERAL 09/25/2016 12:00 AM irregular nevi Medications Active Name [...] OF HEAD AND NECK Reviewed Results Summary Date and Description Results [...] Date Medicare Part B [employer] [place] [id number] Wednesday, 2015 [facility] [id number] May History of Encounters Visit Date Visit [...]
--- OUTSIDE RECORDS SUMMARY | 2017-04-17 23:39 | XMS REPORT | Continuity of Care Document ---
Author Author [facility] Organization [facility] Address [address] [place] [address] Phone Unavailable Care Team Providers Care Hi Lo Driver Name Role Phone RAUL MORA MD PCP Insurance Providers Payer Name Policy Number Subscriber Name Relationship [facility] Comm Plan [id number] Joleen Jeffries 18 Self / Same As Patient Advance Directives Directive Response Recorded Date/Time Living Will No 01/13/16 9:42am Advance Directives No 04/10/15 8:12pm Advance Directive on File No 05/27/16 10:04am Durable POA for HC No 05/27/16 10:04am Power of Program Architect No 05/27/16 10:04am Organ Donor No 05/27/16 10:04am Living Will No 05/27/16 10:04am Chief Complaint and Reason for Visit Chief Complaint Abdominal Pain Reason for Visit [id number] Problems Active Problems Medical Problem Onset Date [...] Once A Day for Muscle Spasm 11/25/15 Albuterol Sulfate (Proventil) 1 Puff 1 Puff Inhalation As Needed as needed for Shortness Of Breath 30 Days 11/26/15 Promethazine Hcl 25 Mg 25 Mg Oral Every 6 To 8 Hours As Needed as needed for Nausea / Vomiting 20 02/25/16 Lidocaine Hcl 20 Mg/1 Ml 5 Ml Mucous Mem Every 2 Hours While Awake as needed for Mouth Pain 120 03/28/16 Ibuprofen 800 Mg 800 Mg Oral Twice A Day for Pain 05/27/16 Past Home Medications Medication Directions Ordered Status Lamotrigine 150 Mg Tablet, 150 Mg Oral Three Times A Day for Seizure Discontinued Ibuprofen 800 Mg Tablet, 800 Mg Oral As Needed as needed for Pain 04/10/15 Discontinued Lurasidone Hcl 40 Mg Tablet, 40 Mg Oral Once A Day for Anxiety 04/10/15 Discontinued [Vibrent] , Oral Once A Day for Anxiety 04/10/15 Discontinued Acetaminophen/Hydrocodone Bitart ([place]) 1 Each Tablet, 1 Each Oral Every [...] as needed for Severe Pain 02/25/16 Discontinued Hydrocodone Bit/Acetaminophen 1 Tab Tablet, 0.5-1 Tab Oral Every 6 To 8 Hours As Needed as needed for Pain 03/28/16 Discontinued Social History Social History Problem Response Recorded Date/Time Smoking Status Current every day smoker 05/27/2016 11:58am Smoked in the last 12 months? Yes 05/27/2016 11:58am Do you dip or chew tobacco? No 05/27/2016 11:58am Approx how many cigs per day? 20 05/27/2016 11:58am Level of Dependence High 05/27/2016 11:58am Former smoker, last day smoked? TODAY 05/27/2016 11:58am Query Response Start Date Stop Date Smoking Status Current every day smoker Hospital Discharge Instructions No hospital discharge instructions. Plan of Care Discharge Date 05/27/16 12:00pm Disposition D/C HOME Condition at Discharge Stable Instructions/Education Provided Ligament Sprain, Stunner And Shackler (GEN) Prescriptions See Medication Section Referrals RAUL MORA MD - Additional Instructions/Education Rest, Alternate ice with heat. Tylenol and Motrin as needed. Use cane or a crutch. Follow-up with your physician as needed. Return for any concerns Functional Status Query Response Date Recorded Activities of Daily Living Performs w/o Assistance May 27, 2016 10:06am Cognitive Function Intact May 27, 2016 10:06am Allergies, Adverse Reactions, Alerts Allergen Type Severity Reaction Status Last Updated Morphine Allergy Intermediate SWELLING AT INJECTION SITE Active 04/10/15 Aspirin Allergy Severe VOMIT, CONVUSIONS Active 04/10/15 Immunizations No immunization records. Vital Signs Acute Vital Signs Vital Response Date/Time Temperature (Fahrenheit) 98.3 degrees F (97.6 - 99.5) 05/27/2016 12:00pm Temperature (Calculated Celsius) 36.51699 degrees C (36.4 - 37.5) 05/27/2016 12:00pm Temperature Source Oral 05/27/2016 12:00pm Pulse Pulse Ox Pulse Rate (adult) 80 beats per minute (60 - 90) 05/27/2016 12:00pm Pulse Location Modifier Right 05/27/2016 12:00pm Oxygen Saturation Respiratory Rate 18 breaths per minute (12 - 24) 05/27/2016 12:00pm O2 Sat by Pulse Oximetry 94 % (90 - 100) 05/27/2016 12:00pm Blood Pressure 116/75 mm Hg 05/27/2016 12:00pm Blood Pressure Mean 89 mm Hg 05/27/2016 12:00pm Height 5 ft 9 in Weight 235 lb Body Mass Index 34.7 kg/m^2 Results Pending Laboratory Results Test Name Collection Date/Time Procedures Procedure Status Date Provider(s) EMERGENCY DEPT VISIT Completed 08/11/15 EMERGENCY DEPT VISIT Completed 08/26/15 EMERGENCY DEPT VISIT Completed 11/25/15 EMERGENCY DEPT VISIT Completed 11/25/15 THER/PROPH/DIAG INJ IV PUSH Completed 11/25/15 TX/PRO/DX INJ NEW DRUG ADDON Completed 11/25/15 TX/PRO/DX INJ SAME DRUG BLOW MOLDER Completed 11/25/15 X-RAY EXAM UNILAT RIBS/CHEST Completed [...] Completed 05/05/16 IMMUNOFIX E-PHORESIS SERUM Completed 05/05/16 Encounters Encounter Location Arrival/Admit Date Discharge/Depart Date Attending Provider Departed Emergency Room [facility] 05/27/16 10:00am 05/27/16 12: 00pm YULIET ABDALLA Registered [facility] 05/05/16 8:41am RAUL MORA MD Departed Emergency Room [facility] 03/28/16 7:10pm 03/28/16 9: 05pm TRAM WALSH APRN Departed Emergency Room [facility] 02/24/16 11:45pm 02/25/16 1: 00am ALLEN PRESTON APRN Registered [facility] 01/15/16 9:02am RAUL MORA MD Registered [facility] 01/13/16 9:47am RAUL MORA MD Departed Emergency Room [facility] 11/25/15 10:49pm 11/26/15 12: 21am ALLEN PRESTON APRN Departed Emergency Room [facility] 11/25/15 3:45pm 11/25/15 5: 50pm ALLEN PRESTON APRN Registered [facility] 10/22/15 2:40pm RAUL MORAN Departed Emergency Room [facility] 08/26/15 12:10pm 08/26/15 12: 50pm ALLNE PRESTON APRN Departed Emergency Room [facility] 08/11/15 5:47pm 08/11/15 7: 15pm BELEN CANCINO MD Recent Diagnosis
--- OUTSIDE RECORDS SUMMARY | 2017-04-17 23:39 | XMS REPORT ---
Author Author [facility] Address [address] [place], [place] [id number] Care Team Providers Care Director Internal Audit Name Role Phone Zahida Baxter PCP Unavailable [...] Date Medicare Part B [employer] [place] [id number] Wednesday, 2015 [facility] Plan of [id number] May History of Encounters Visit Date Visit [...]
--- OUTSIDE RECORDS SUMMARY | 2017-04-17 23:40 | XMS REPORT ---
Author Author Naomi Roberson Organization [facility] Address [address] [place] [id number] Care Team Providers Care Delivery Motorcycle Driver Name Role Phone Naomi Roberson PCP Unavailable [...] day Bactrim DS 800-160 mg oral tablet 06/05/2016 [...] HC BMI BSA BMI Percentile O2 Sat(%) 06/05/2016 9:35:00 AM 122 mmHg 74 mmHg [...] Cellulitis, abdominal wall Jun 05 2016 9:40AM Payers Insurance Name Company Name Plan Name Plan Number Policy Number Policy Group Number Start Date Medicare Part B Medicare [place] [id number] Wednesday, 2015 [facility] Plan of [id number] May History of Encounters Visit Date Visit Type Provider 06/05/2016 Office visit Naomi Roberson MD 04/16/[address] Dylan Morejon MD 01/08/2016 Office visit 01/08/[address] Dylan Morejon MD 12/04/2015 Office visit 12/04/[address] Dylan Morejon MD
--- OUTSIDE RECORDS SUMMARY | 2017-04-17 23:40 | XMS REPORT | Continuity of Care Document ---
Author Author [facility] Organization [facility] Address [address] [place] [address] Phone Unavailable Care Team Providers Care District Director Name Role Phone RAUL MORA MD PCP Insurance Providers Payer Name Policy Number Subscriber Name Relationship [facility] Comm Plan [id number] Joleen Jeffries 18 Self / Same As Patient Advance Directives Directive Response Recorded Date/Time Advance Directives No 04/10/15 8:12pm Advance Directive on File No 08/26/15 12:40pm Durable POA for HC No 08/26/15 12:40pm Power of Sawyer [place] Slabs No 08/26/15 12:40pm Organ Donor No 08/26/15 12:40pm Living Will No 08/26/15 12:40pm Chief Complaint and Reason for Visit Chief Complaint Multiple Trauma/Fall Reason for Visit Low back pain [id number] Sacroiliac joint pain Problems Active Problems Medical Problem Onset Date Status Cyst of ovary, right Unknown Acute Epilepsy seizure, generalized, convulsive Unknown Acute Headache Unknown Acute Low back pain Unknown Acute Neck muscle spasm Unknown Acute Neck muscle strain Unknown Acute Sacroiliac joint pain Unknown Acute Medications Current Home Medications Medication [...] Needed as needed for Pain 8 11/25/15 Past Home Medications Medication Directions Ordered Status Lamotrigine 150 Mg Tablet, 150 Mg Oral Three Times A Day for Seizure Discontinued Ibuprofen 800 Mg Tablet, 800 Mg Oral As Needed as needed for Pain 04/10/15 Discontinued Lurasidone Hcl 40 Mg Tablet, 40 Mg Oral Once A Day for Anxiety 04/10/15 Discontinued [Vibrent] , Oral Once A Day for Anxiety 04/10/15 Discontinued Acetaminophen/Hydrocodone Bitart ([place]) 1 Each Tablet, 1 Each Oral Every [...] History Problem Response Recorded Date/Time Alcohol Use occasionally 11/25/2015 4:10pm Drug Use none 11/25/2015 4:10pm Smoking Status Current every day smoker 11/25/2015 3:53pm Smoked in the last 12 months? No 11/25/2015 3:53pm Do you dip or chew tobacco? No 11/25/2015 3:53pm Approx how many cigs per day? 20 11/25/2015 3:53pm Level of Dependence High 11/25/2015 3:53pm Former smoker, last day smoked? T 11/25/2015 3:53pm Query Response Start Date Stop Date Smoking Status Current every day smoker 11/25/2015 Hospital Discharge Instructions No hospital discharge instructions. Plan of Care Discharge Date 11/25/15 5:50pm Disposition 01 D/C HOME Condition at Discharge Stable and Improved Instructions/Education Provided How to Stop Smoking (ED) Forms Provided ER Discharge Phone Call Check Prescriptions See Medication Section Referrals RAUL MORA MD - Additional Instructions/Education Home to rest today using TENS unit and heat as necessary Take ibuprofen 800mg three times daily with food to help with swelling, pain, and SI joint discomfort as discussed Take 1/2-1 valium every 8 hours if needed for severe muscle spasms Take 1/2-1 lortab every 4-6 hours if needed for severe pain Keep your appointment tomorrow with chiropractor and then go to the clinic for walk-in office visit at pending sale to [facility] if needed before you are established with your new pcp Dr. Mora Functional Status Query Response Date Recorded Activities of Daily Living Performs w/o Assistance November 25, 2015 3:54pm Cognitive Function Intact November 25, 2015 3:54pm Allergies, Adverse Reactions, Alerts Allergen Type Severity Reaction Status Last Updated Morphine Allergy Intermediate SWELLING AT INJECTION SITE Active 04/10/15 Aspirin Allergy Severe VOMIT, CONVUSIONS Active 04/10/15 Immunizations No immunization records. Vital Signs Acute Vital Signs Vital Response Date/Time Temperature (Fahrenheit) 97.4 degrees F (97.6 - 99.5) 11/25/2015 5:40pm Temperature (Calculated Celsius) 36.83193 degrees C (36.4 - 37.5) 11/25/2015 5:40pm Temperature Source Temporal Artery Scan 11/25/2015 5:40pm Pulse Pulse Ox Pulse Rate (adult) 67 beats per minute (60 - 90) 11/25/2015 5:40pm Pulse Location Modifier Right 11/25/2015 5:40pm Oxygen Saturation Respiratory Rate 18 breaths per minute (12 - 24) 11/25/2015 5:40pm O2 Sat by Pulse Oximetry 96 % (90 - 100) 11/25/2015 5:40pm Blood Pressure 96/55 mm Hg 11/25/2015 5:40pm Blood Pressure Mean 69 mm Hg 11/25/2015 5:40pm Height 5 ft 8.5 in Weight 226 lb Body Mass Index 33.9 kg/m^2 Results Laboratory Results Test Name Result [...] 8:49pm Volume Urine Centrifuged 12 ml 04/10/2015 8:pm 04/10/2015 8:48pm Test based ON 12 ml volume. Urine Color STRAW STRAW 04/10/2015 8:pm 04/10/2015 8:48pm Urine Clarity CLEAR CLEAR 04/10/2015 8:pm 04/10/2015 8:48pm Urine Specific [place] 1.025 A 1.010-1.020 04/10/2015 8:pm 2014 8:48pm Urine pH 5.0 5.0-6.0 04/10/2015 8:22pm 04/10/2015 8:48pm Urine Leukocyte Esterase NEGATIVE NEGATIVE 04/10/2015 8:pm 2014 8:48pm Urine Nitrite NEGATIVE NEGATIVE 04/10/2015 8:pm 04/10/2015 8:48pm Urine Protein NEGATIVE NEGATIVE 04/10/2015 8:pm 04/10/2015 8:48pm Urine Glucose (UA) NEGATIVE NEGATIVE 04/10/2015 8:pm 04/10/2015 8: 48pm Urine Ketones NEGATIVE NEGATIVE 04/10/2015 8:pm 04/10/2015 8:48pm Urine Urobilinogen 0.2 0.2-1.0 04/10/2015 8:22pm 04/10/2015 8:48pm Urine Bilirubin NEGATIVE NEGATIVE 04/10/2015 8:pm 04/10/2015 8: 48pm Urine Occult Blood NEGATIVE NEGATIVE 04/10/2015 8:pm 04/10/2015 8: 48pm Urine WBC NONE #/HPF OCCASIONAL 04/10/2015 8:04/10/2015 8:48pm Urine RBC NONE #/HPF OCCASIONAL 04/10/2015 8:04/10/2015 8:48pm Urine Epithelial Cells 2+ #/HPF OCCASIONAL 04/10/2015 8:pm 2014 8:48pm Urine Other Casts NONE #/LPF NEGATIVE [...] V: GFR <15 BUN/Creatinine Ratio 17.07 04/10/2015 8:pm 04/10/2015 8:50pm Glucose Level 114 mg/dL H 74-106 04/10/2015 8:04/10/2015 8:50pm Calcium Level 8.9 mg/dL 8.4-10.2 04/10/2015 8:22pm 04/10/2015 8:50pm Procedures Procedure Status Date Provider(s) EMERGENCY DEPT VISIT Completed 04/10/15 THER/PROPH/DIAG INJ IV PUSH Completed 04/10/15 EMERGENCY DEPT VISIT Completed 08/11/15 EMERGENCY DEPT VISIT Completed 08/26/15 Encounters Encounter Location Arrival/Admit Date Discharge/Depart Date Attending Provider Departed Emergency Room [facility] 11/25/15 3:45pm 11/25/15 5: 50pm ALLEN PRESTON APRN [facility] 10/22/15 2:40pm RAUL MORAN Departed Emergency Room [facility] 08/26/15 12:10pm 08/26/15 12: 50pm ALLEN PRESTON APRN Departed Emergency Room [facility] 08/11/15 5:47pm 08/11/15 7: 15pm BELEN CANCINO MD Departed Emergency Room [facility] 04/10/15 8:00pm 04/10/15 10: 35pm BELEN CANCINO MD Recent Diagnosis
--- OUTSIDE RECORDS SUMMARY | 2017-04-17 23:41 | XMS REPORT ---
Author Author [facility]ahida Baxter [facility] Address [address] [place], [place] [id number] Care Team Providers Care Tobacco Stemmer Name Role Phone Zahida Baxter PCP Unavailable [...] TISSUES HEAD AND NECK 08/18/2016 12:00 AM irregular nevi Medications Active Name [...] THYROID STIM HORMONE Reviewed 08/05/2016 12:00 AM [email or web address] METABOLIC PANEL Reviewed Results Summary Data and [...] Date Medicare Part B Medicare [place] [id number] Wednesday, 2015 [facility] Plan of [id number] May History of Encounters Visit Date Visit [...]
--- OUTSIDE RECORDS SUMMARY | 2017-04-17 23:41 | XMS REPORT ---
Author Author Naomi Roberson Organization [facility] Address [address] [place], [place] [phone] Care Team Providers Care Shot Bagger Name Role Phone Naomi Roberson PCP Unavailable [...] 12:00 AM DRAINAGE OF SKIN ABSCESS Reviewed 08/05/2016 12:00 AM ASSAY THYROID STIM HORMONE Returned 08/05/2016 12:00 AM COMPREHEN METABOLIC PANEL Returned 08/06/2016 12:00 AM ROUTINE VENIPUNCTURE Reviewed Results [...] Date Medicare Part B Medicare [place] [id number] Wednesday, [facility] Plan of [id number] May History of Encounters Visit Date Visit [...]
--- OUTSIDE RECORDS SUMMARY | 2017-04-17 23:41 | XMS REPORT ---
Author Author Dylan Morejon [facility] Address [address] [place], [place] [phone] Care Team Providers Care Psychiatric Secretary Name Role Phone Dylan Morejon PCP Allergies and Adverse Reactions Name Reaction Notes Aspirin Morphine Sulfate Tylenol-Codeine #3 Plan of Treatment Planned Activity Comments Planned Date Planned Time Plan/Goal HEMOGLOBIN A1C 04/16/2016 12:00 AM RENAL FUNCTION PANEL 04/16/2016 12:00 AM Medications Active Name Start Date [...] needed omeprazole 40 mg oral capsule,delayed release(/EC) 12/31/2015 12/25/2016 take 1 capsule by oral route daily for 90 days Proventil HFA 90 mcg/actuation inhalation HFA aerosol inhaler 02/27/2016 2 PUFFS EVERY 6 HOURS NEEDED baclofen 10 mg oral tablet 03/30/2016 04/29/2016 take 1 tablet by oral route 4 times a day as needed for 30 days baclofen 10 mg oral tablet 04/02/2016 TAKE 1 TABLET BY ORAL ROUTE 4 TIMES A DAY NEEDED FOR 30 DAYS levofloxacin 500 mg oral tablet 04/16/2016 04/23/2016 take 1 tablet (500 mg) by oral route once daily for 7 days Name Start Date Expiration [...] 12:00 AM X-RAY EXAM UNILAT RIBS/CHEST Returned Results Summary Not available. History Of [...] non-recurrent maxillary sinusitis Apr 16 2016 10:02AM Payers Insurance Name Company Name Plan Name Plan Number Policy Number Policy Group Number Start Date Medicare Part B Medicare [place] [id number] Wednesday, 2015 [facility] Plan of [id number] May History of Encounters Visit Date Visit Type Provider 04/16/[address] Dylan Morejon MD 01/08/2016 Office visit 01/08/[address] Dylan Morejon MD 12/04/2015 Office visit 12/04/[address] Dylan Morejon MD
--- OUTSIDE RECORDS SUMMARY | 2017-04-17 23:42 | XMS REPORT | Continuity of Care Document ---
Author Author [facility] Address Unknown Phone Unavailable Allergies Medications Problems Date Dx Coded Attending Type Code Diagnosis Diagnosed By 07/06/2012 MARY MARTINEZ MD 305.1 TOBACCO ABUSE 07/06/2012 MARY MARTINEZ MD 345.90 EPILEPSY UNSPECIFIED WITHOUT INTRACTABLE EPILEPSY 07/06/2012 MARY MARTINEZ MD 493.90 ASTHMA UNSPECIFIED 07/06/2012 MARY MARTINEZ MD 724.5 BACK PAIN, GENERAL 07/06/2012 MARY MARTINEZ MD V65.42 TOBACCO COUNSELING 07/06/2012 305.1 TOBACCO ABUSE 07/06/2012 345.90 EPILEPSY UNSPECIFIED WITHOUT INTRACTABLE EPILEPSY 07/06/2012 493.90 ASTHMA UNSPECIFIED 07/06/2012 724.5 BACK PAIN, GENERAL 07/06/2012 V65.42 TOBACCO COUNSELING 07/06/2012 305.1 TOBACCO ABUSE 07/06/2012 345.90 EPILEPSY UNSPECIFIED WITHOUT INTRACTABLE EPILEPSY 07/06/2012 493.90 ASTHMA UNSPECIFIED 07/06/2012 724.5 BACK PAIN, GENERAL 07/06/2012 V65.42 TOBACCO COUNSELING 07/06/2012 305.1 TOBACCO ABUSE 07/06/2012 345.90 EPILEPSY UNSPECIFIED WITHOUT INTRACTABLE EPILEPSY 07/06/2012 493.90 ASTHMA UNSPECIFIED 07/06/2012 724.5 BACK PAIN, GENERAL 07/06/2012 V65.42 TOBACCO COUNSELING 07/06/2012 MARY MARTINEZ MD 305.1 TOBACCO ABUSE 07/06/2012 MARY MARTINEZ MD 345.90 EPILEPSY UNSPECIFIED WITHOUT INTRACTABLE EPILEPSY 07/06/2012 MARY MARTINEZ MD 493.90 ASTHMA UNSPECIFIED 07/06/2012 MARY MARTINEZ MD 724.5 BACK PAIN, GENERAL 07/06/2012 MARY MARTINEZ MD V65.42 TOBACCO COUNSELING 07/06/2012 MARY MARTINEZ MD 305.1 TOBACCO ABUSE 07/06/2012 MARY MARTINEZ MD 345.90 EPILEPSY UNSPECIFIED WITHOUT INTRACTABLE EPILEPSY 07/06/2012 MARY MARTINEZ MD 493.90 ASTHMA UNSPECIFIED 07/06/2012 MARY MARTINEZ MD 724.5 BACK PAIN, GENERAL 07/06/2012 MARY MARTINEZ MD V65.42 TOBACCO COUNSELING 07/06/2012 MARY MARTINEZ MD 305.1 TOBACCO ABUSE 07/06/2012 MARY MARTINEZ MD 345.90 EPILEPSY UNSPECIFIED WITHOUT INTRACTABLE EPILEPSY 07/06/2012 MARY MARTINEZ MD 493.90 ASTHMA UNSPECIFIED 07/06/2012 MARY MARTINEZ MD 724.5 BACK PAIN, GENERAL 07/06/2012 MARY MARTINEZ MD V65.42 TOBACCO COUNSELING 07/06/2012 GREEN DDS, KB L 305.1 TOBACCO ABUSE 07/06/2012 GREEN DDS, KB L 345.90 EPILEPSY UNSPECIFIED WITHOUT INTRACTABLE EPILEPSY 07/06/2012 GREEN DDS, KB L 493.90 ASTHMA UNSPECIFIED 07/06/2012 GREEN DDS, KB L 724.5 BACK PAIN, GENERAL 07/06/2012 GREEN DDS, KB L V65.42 TOBACCO COUNSELING 07/06/2012 MARY MARTINEZ MD 305.1 TOBACCO ABUSE 07/06/2012 MARY MARTINEZ MD 345.90 EPILEPSY UNSPECIFIED WITHOUT INTRACTABLE EPILEPSY 07/06/2012 MARY MARTINEZ MD 493.90 ASTHMA UNSPECIFIED 07/06/2012 MARY MARTINEZ MD 724.5 BACK PAIN, GENERAL 07/06/2012 MARY MARTINEZ MD V65.42 TOBACCO COUNSELING 07/06/2012 MARY MARTINEZ MD 305.1 TOBACCO ABUSE 07/06/2012 MARY MARTINEZ MD 345.90 EPILEPSY UNSPECIFIED WITHOUT INTRACTABLE EPILEPSY 07/06/2012 MARY MARTINEZ MD 493.90 ASTHMA UNSPECIFIED 07/06/2012 MARY MARTINEZ MD 724.5 BACK PAIN, GENERAL 07/06/2012 MRAY MARTINEZ MD V65.42 TOBACCO COUNSELING 07/15/2012 465.9 UPPER RESPIRATORY INFECTION 07/15/2012 465.9 UPPER RESPIRATORY INFECTION 07/15/2012 465.9 UPPER RESPIRATORY INFECTION 07/15/2012 MARY MARTINEZ MD 465.9 UPPER RESPIRATORY INFECTION 07/15/2012 MARY MARTINEZ MD 465.9 UPPER RESPIRATORY INFECTION 07/15/2012 MARY MARTINEZ MD 465.9 UPPER RESPIRATORY INFECTION 07/15/2012 GREEN DDS, KB L 465.9 UPPER RESPIRATORY INFECTION 07/15/2012 MARY MARTINEZ MD 465.9 UPPER RESPIRATORY INFECTION 07/15/2012 MARY MARTINEZ MD 465.9 UPPER RESPIRATORY INFECTION 08/16/2012 477.0 ALLERGIC RHINITIS DUE TO POLLEN 08/16/2012 MARY MARTINEZ MD 477.0 ALLERGIC RHINITIS DUE TO POLLEN 08/16/2012 MARY MARTINEZ MD 477.0 ALLERGIC RHINITIS DUE TO POLLEN 08/16/2012 MARY MARTINEZ MD 477.0 ALLERGIC RHINITIS DUE TO POLLEN 08/16/2012 GREEN DDS, KB L 477.0 ALLERGIC RHINITIS DUE TO POLLEN 08/16/2012 MARY MARTINEZ MD 477.0 ALLERGIC RHINITIS DUE TO POLLEN 08/16/2012 MARY MARTINEZ MD 477.0 ALLERGIC RHINITIS DUE TO POLLEN 12/02/2012 MARY MARTINEZ MD 112.1 CANDIDIASIS VAGINAL 12/02/2012 MARY MARTINEZ MD V70.0 ROUTINE GENERAL MEDICAL EXAMINATION AT A HEALTH CARE FACILITY 12/02/2012 MARY MARTINEZ MD 112.1 CANDIDIASIS VAGINAL 12/02/2012 MARY MARTINEZ MD V70.0 ROUTINE GENERAL MEDICAL EXAMINATION AT A HEALTH CARE FACILITY 12/02/2012 MARY MARTINEZ MD 112.1 CANDIDIASIS VAGINAL 12/02/2012 MARY MARTINEZ MD V70.0 ROUTINE GENERAL MEDICAL EXAMINATION AT A HEALTH CARE FACILITY 12/02/2012 GREEN DDS, KB L 112.1 CANDIDIASIS VAGINAL 12/02/2012 AARON DDS, KB L V70.0 ROUTINE GENERAL MEDICAL EXAMINATION AT A HEALTH CARE FACILITY 12/02/2012 MARY MARTINEZ MD 112.1 CANDIDIASIS VAGINAL 12/02/2012 MARY MARTINEZ MD V70.0 ROUTINE GENERAL MEDICAL EXAMINATION AT A HEALTH CARE FACILITY 12/02/2012 MARY MARTINEZ MD 112.1 CANDIDIASIS VAGINAL 12/02/2012 MARY MARTINEZ MD V70.0 ROUTINE GENERAL MEDICAL EXAMINATION AT A HEALTH CARE FACILITY 12/06/2012 MARY MARTINEZ MD 578.1 HEMATOCHEZIA 12/06/2012 MARY MARTINEZ MD 578.1 HEMATOCHEZIA 12/06/2012 MARY MARTINEZ MD 578.1 HEMATOCHEZIA 12/06/2012 GREEN DDS, KB L 578.1 HEMATOCHEZIA 12/06/2012 MARY MARTINEZ MD 578.1 HEMATOCHEZIA 12/06/2012 MARY MARTINEZ MD 578.1 HEMATOCHEZIA 02/27/2013 MARY MARTINEZ MD 300.00 ANXIETY UNSPEC 02/27/2013 MARY MARTINEZ MD 787.1 HEARTBURN 02/27/2013 MARY MARTINEZ MD 300.00 ANXIETY UNSPEC 02/27/2013 MARY MARTINEZ MD 787.1 HEARTBURN 02/27/2013 MARY MARTINEZ MD 300.00 ANXIETY UNSPEC 02/27/2013 MARY MARTINEZ MD 787.1 HEARTBURN 02/27/2013 GREEN DDS, KB L 300.00 ANXIETY UNSPEC 02/27/2013 GREEN DDS, KB L 787.1 HEARTBURN 02/27/2013 MARY MARTINEZ MD 300.00 ANXIETY UNSPEC 02/27/2013 MARY MARTINEZ MD 787.1 HEARTBURN 02/27/2013 MARY MARTINEZ MD 300.00 ANXIETY UNSPEC 02/27/2013 MARY MARTINEZ MD 787.1 HEARTBURN 03/23/2013 MARY MARTINEZ MD 611.71 MASTODYNIA 03/23/2013 MARY MARTINEZ MD V74.5 STD SCREEN 03/23/2013 GREEN DDS, KB L 611.71 MASTODYNIA 03/23/2013 GREEN DDS, KB L V74.5 STD SCREEN 03/23/2013 MARY MARTINEZ MD 611.71 MASTODYNIA 03/23/2013 MARY MARTINEZ MD V74.5 STD SCREEN 03/23/2013 MARY MARTINEZ MD 611.71 MASTODYNIA 03/23/2013 MARY MARTINEZ MD V74.5 STD SCREEN 05/23/2013 MARY MARTINEZ MD 487.1 INFLUENZA 05/23/2013 MARY MARTINEZ MD 487.1 INFLUENZA Procedures Code [place] [address] SPIROMETRY 2012 29188 BRONCHODILATION PRE/POST 08/01/2012 88539 RESPIRATORY FLOW VOLUME LOOP 08/01/2012 22034 OXIMETRY 2012 62871 CMP 02/28/2013 06369 LIPID PANEL 02/28 36600 TSH 02/28/2013 22185 CBC 02/28/2013 88539 CMP 03/17/2013 64377 LIPID PANEL 03/17 89649 TSH 03/17/2013 94454 CBC 03/17/2013 50918 CMP 03/20/2013 00832 LIPID PANEL 03/20 29618 TSH 03/20/2013 25975 CBC 03/20/2013 47346 CMP 03/21/2013 01753 LIPID PANEL 03/21 48584 TSH 03/21/2013 38542 CBC 03/21/2013 41457 TRICHOMONAS (IN-HOUSE) 03/23/2013 66117 US BREAST(S) ULTRASOUND, BOTH 03/23/2013 93896 CULTURE UROGENITAL 03/23/2013 30581 GC/CHLAM PROBE (STATE) 03/23/2013 09079 INFLUENZA A & B (IN-HOUSE) 05/23/2013 11684 NEBULIZER TREATMENT 05/23/2013 J7613 ALBUTEROL UNIT DOSE FORM INHALED 05/23/2013 Results Encounters ACCT No. Visit Date/Time Discharge Status Pt. Type Provider Facility Loc./Unit Complaint [id number] 05/23/2013 13:48:00 05/23/2013 23: 59:59 CLS Outpatient MARY MARTINEZ MD [id number] 05/16/2013 00:00:00 05/16/2013 23: 59:59 CLS Outpatient MARY MARTINEZ MD [id number] 03/30/2013 10:40:00 03/30/2013 23: 59:59 CLS Outpatient KB WALKER DDS [id number] 03/23/2013 12:16:00 03/23/2013 23: 59:59 CLS Outpatient MARY MARTINEZ MD [id number] 02/28/2013 09:29:00 02/28/2013 23: 59:59 CLS Outpatient MARY MARTINEZ MD [id number] 02/27/2013 14:41:00 02/27/2013 23: 59:59 CLS Outpatient MARY MARTINEZ MD [id number] 08/16/2012 14:02:00 08/16/2012 23: 59:59 CLS Outpatient [id number] 08/01/2012 15:03:00 08/01/2012 23: 59:59 CLS Outpatient [id number] 07/15/2012 11:33:00 07/15/2012 23: 59:59 CLS Outpatient [id number] 07/06/2012 13:24:00 07/06/2012 23: 59:59 CLS Outpatient MARY MARTINEZ MD [id number] 08/17/2013 11:00:00 08/17/2013 23 :59:59 CLS Outpatient [id number] 04/13/2017 12:17:43 04/13/2017 23: 59:59 CLS Outpatient Elies Nielsensea [id number] 04/06/2017 15:12:48 04/06/2017 23: 59:59 CLS Outpatient RegwilliamDevon caldwello [id number] 03/11/2017 10:49:18 03/11/2017 23: 59:59 CLS Outpatient Zahida Baxter [id number] 01/26/2017 11:50:39 01/26/2017 23: 59:59 CLS Outpatient MoralesEliseShanda [id number] 01/22/2017 09:34:19 01/22/2017 23: 59:59 CLS Outpatient Zahida Baxter [id number] 11/03/2016 15:10:34 11/03/2016 23: 59:59 CLS Outpatient Zahida Baxter [id number] 09/15/2016 12:15:59 09/15/2016 23: 59:59 CLS Outpatient Zahida Baxter [id number] 08/18/2016 09:24:49 08/18/2016 23: 59:59 CLS Outpatient Zahida Baxter [id number] 08/06/2016 11:26:56 08/06/2016 23: 59:59 CLS Outpatient Naomi Roberson [id number] 08/05/2016 10:09:24 08/05/2016 23: 59:59 CLS Outpatient Dylan Morejon [id number] 07/20/2016 14:41:03 07/20/2016 23: 59:59 CLS Outpatient aNomi Roberson [id number] 06/24/2016 11:28:39 06/24/2016 23: 59:59 CLS Outpatient Naomi Roberson [id number] 06/05/2016 10:27:45 06/05/2016 23: 59:59 CLS Outpatient Naomi Roberson [id number] 04/16/2016 10:31:59 04/16/2016 23: 59:59 CLS Outpatient Dylan Morejon [id number] 01/08/2016 09:49:17 01/08/2016 23: 59:59 TOYA Outpatient Dylan Morejon [id number] 12/04/2015 15:42:56 12/04/2015 23: 59:59 TOYA Outpatient Dylan Morejon
--- NOTE | 2017-04-17 23:49 | ED General ---
General Stated Complaint: POSS SEIZURE Source of Information: Patient History of Present Illness Time Seen by Provider: 23:15 Initial Comments PT ARRIVES VIA POV--ASSISTED OUT OF VEHICLE BY MULTIPLE STAFF MEMBERS PT HAVING A "SEIZURE" BOYFRIEND STATES SHE HAS HAD "8 SEIZURES" IN THE CAR BETWEEN LAMPLIGHTER INN AND HERE STATES NORMALLY HE KNOWS WHEN SHE IS GOING TO START HAVING ONE, BECAUSE SHE STARTS ARGUING/ BICKERING WITH HIM , ETC. AND THEN SHE WILL HAVE ONE--STATES NORMALLY HE CAN "TALK HER DOWN AND CALM HER DOWN AND CAN STOP IT THAT WAY" BUT TONIGHT, HE STATES "IT CAME ON SUDDENLY" AND "HE DIDN'T RECOGNIZE IT UNTIL IT WAS TOO LATE" --BUT STATES SHE WAS BICKERING WITH HIM PRIOR TO ONSET. BOYFRIEND STATES SHE IS ALWAYS ANXIOUS AND TENSE, BUT IS NOT TAKING ANYTHING FOR ANXIETY/NERVES/PSYCH ISSUES. ( HOWEVER, PER MED RECONCILIATION, PT HAS BEEN PRESCRIBED ABILIFY-LAST PRESCRIBED 04/07/17, AND VIIBRYD --LAST PRESCRIBED 03/[address] IVANIA ROBERTS IN [place], [place] ). 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 PT IS HAVING TENSING OF ARMS BUT HOLDING ARMS UP IN THE AIR WHEN SHE TENSES THEM UP, AND TENSES UPPER BODY AND HEAD--THIS ACTIVITY STOPS TO STERNAL RUB AND PT "STARTLES" TO IMMEDIATELY BEING AWAKE AND ALERT AND ORIENTED X 4 AND ABLE TO ANSWER ALL QUESTIONS PT SHOWS NO SIGNS OF BEING POST ICTAL NO INCONTINENCE NO TONGUE BITING NO INJURY PT ANXIOUS AND NOT DROWSY OR LETHARGIC PT STATES SHE HAS "SEIZURES" "ALL THE TIME" SEVERAL OF THESE A DAY EVERY DAY-- STATES A FEW NIGHTS AGO SHE HAD "10 IN LESS THAN AN HOUR AND A HALF" WHICH IS NOTHING UNUSUAL FOR HER WHAT IS OCCURRING TONIGHT IS NO DIFFERENT THAN HER USUAL "SEIZURES" 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 BACLOFEN 20 MG- 2 PILLS IN EACH SPACE ( TAKES THEM BECAUSE HER MUSCLES GETS TENSE WITH THESE "SEIZURES"), OMEPRAZOLE 40 MG- 1 PILL IN EACH SPACE, LAMICTAL 200 MG- 2 DAYS WITH 2 PILLS AND 1 DAY WITH 1 PILLS. ALSO HAS A BOTTLE OF VALIUM 10 MG #60 FILLED 12/05/15 WITH #36 STILL LEFT IN BOTTLE--PT STATES SHE DOESN'T TAKE THEM ANYMORE--STATES SHE IS SUPPOSED TO TAKE THEM BUT DOES NOT . PT STATES SHE HAS BEEN AT THE [employer] FOR A [employer] FOR HER BOYFRIEND'S WORK. PT LIVES IN [place], [place]. STATES SHE HAS HAD "2 SIPS" OF WINE TONIGHT DENIES ANY DRUG USE TONIGHT--STATES SHE USED METH A TEEN ,BUT DOES SMOKE MARIJUANA "OCCASIONALLY" PT STATES SHE SMOKES MARIJUANA FOR "MEDICAL REASONS" --STATES "WHEN SHE SMOKES MARIJUANA SHE DOES NOT HAVE SEIZURES" --THIS IS SELF DX AND "SELF" TREATED. PCP: DR. BARKSDALE, MCGREGOR Allergies and Home Medications Allergies Coded Allergies: No Known Drug Allergies (Unverified , 04/18/17) Home Medications Aripiprazole 2 Mg Tablet, (Reported) Baclofen 20 Mg Tablet, (Reported) Lamotrigine 200 Mg Tablet, (Reported) Omeprazole 40 Mg Capsule., (Reported) Vilazodone Hydrochloride 40 Mg Tablet, (Reported) Constitutional: no symptoms reported EENTM: no symptoms reported Respiratory: no symptoms reported Cardiovascular: no symptoms reported Gastrointestinal: no symptoms reported Genitourinary: no symptoms reported : No (S/P HYST) Musculoskeletal: other (STATES SHE HURTS ALL OVER) Skin: no symptoms reported Psychiatric/Neurological: See HPI, Anxiety, Denies Headache Hematologic/Lymphatic: No Symptoms Reported Immunological/Allergic: no symptoms reported Past Fpbdefm-Pdxwzp-[id number] Hx Patient Social History Alcohol Use: Rarely Uses Recreational Drug Use: Yes (METH " A TEEN"--SMOKED IT, DENIES IV USE; FREQUENTLY USES MARIJUANA) Smoking Status: Current Everyday Smoker (1 PPD) Recent Foreign Travel: No Contact w/Someone Who Travel: No Surgeries History of Surgeries: Yes (HYST/OVARIES INTACT 2008; X 4; SKIN BIOPSY ) Surgeries: Section, Hysterectomy Respiratory History of Respiratory Disorde: No Cardiovascular History of Cardiac Disorders: No Neurological History of Neurological Disord: Yes (PSUEDOSEIZURES) Neurological Disorders: Seizure Disorder Reproductive System : No Hx Reproductive Disorders: Yes (CERVICAL 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 Genitourinary History of Genitourinary Disor: No Gastrointestinal History of Gastrointestinal Di: Yes Gastrointestinal Disorders: Gastroesophageal Reflux Musculoskeletal History of Musculoskeletal Dis: No Endocrine History of Endocrine Disorders: No HEENT History of HEENT Disorders: No Cancer History of Cancer: Yes Cancer: Cervical Did You Recieve Any Treatments: Yes (HYST/OVARIES INTACT) Type of Tx Receive: Surgical Intervention Psychosocial History of Psychiatric Problem: Yes Behavioral Health Disorders: Pseudo Seizures, Anxiety Integumentary History of Skin or Integumenta: No Blood Transfusions History of Blood Disorders: No Physical Exam Vital Signs Vital Sign - Last 12Hours 04/17/17 23:22 Pulse 68 Resp 24 B/P (MAP) 132/84 (100) Pulse Ox 99 Capillary Refill : General Appearance: Other (PT ARRIVES TENSING HER ARMS, BUT HOLDING THEM UP/ OUTSTRETCHED, AND TENSING UPPER BODY ONLY--THIS STOPS WITH STERNAL RUB, AND WHEN DISTRACTED, AND PT IMMEDIATELY "STARTLES" AND IS IMMEDIATELY ALERT AND ORIENTED X 4 WITH NO POST-ICTAL SIGNS) HEENT: PERRL/EOMI, TMs Normal, Normal ENT Inspection, Pharynx Normal, Other ( NO TONGUE INJURY) Neck: Full Range of Motion, Normal Inspection, Non Tender, Supple Respiratory: Chest Non Tender, Normal Breath Sounds, No Accessory Muscle Use, No Respiratory Distress Cardiovascular: Regular Rate, Rhythm, No Edema, No JVD, No Murmur, Normal Peripheral Pulses Gastrointestinal: Non Tender, Soft Back: No CVA Tenderness Extremity: Normal Capillary Refill, Normal Inspection, Normal Range of Motion, Non Tender, No Calf Tenderness, No Pedal Edema Neurologic/Psychiatric: Alert, Oriented x3, No Motor/Sensory Deficits, 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 DOES NOT APPEAR POST ICTAL. ) Skin: Normal Color, Warm/Dry, Tattoos/Piercings Progress/Results/Core Measures Suspected Sepsis SIRS Temperature: Pulse: Respiratory Rate: Laboratory Tests 04/18/17 00:09: White Blood Count 8.7 Blood Pressure / Mean: Laboratory Tests 04/18/17 00:09: Creatinine 0.78, Platelet Count 209, Total Bilirubin 0.4 Results/Orders Lab Results Laboratory Tests Test 04/18/17 00:09 04/18/17 00:59 Range/Units White Blood Count 8.7 4.3-11.0 10^3/uL Red Blood Count 4.56 4.35-5.85 10^6/uL Hemoglobin 13.4 11.5-16.0 G/DL Hematocrit 39 35-52 % Mean Corpuscular Volume 86 80-99 FL Mean Corpuscular Hemoglobin 29 25-34 PG Mean Corpuscular Hemoglobin Concent 34 32-36 G/DL Red Cell Distribution Width 14.0 10.0-14.5 % Platelet Count 209 130-400 10^3/uL Mean Platelet Volume 10.6 H 7.4-10.4 FL Neutrophils (%) (Auto) 62 42-75 % Lymphocytes (%) (Auto) 24 12-44 % Monocytes (%) (Auto) 9 0-12 % Eosinophils (%) (Auto) 4 0-10 % Basophils (%) (Auto) 0 0-10 % Neutrophils # (Auto) 5.4 1.8-7.8 X 10^3 Lymphocytes # (Auto) 2.1 1.0-4.0 X 10^3 Monocytes # (Auto) 0.8 0.0-1.0 X 10^3 Eosinophils # (Auto) 0.4 H 0.0-0.3 10^3/uL Basophils # (Auto) 0.0 0.0-0.1 10^3/uL Sodium Level 140 135-145 MMOL/L Potassium Level 3.7 3.6-5.0 MMOL/L Chloride Level 105 98-107 MMOL/L Carbon Dioxide Level 26 21-32 MMOL/L Anion Gap 9 5-14 MMOL/L Blood Urea Nitrogen 17 7-18 MG/DL Creatinine 0.78 0.60-1.30 MG/DL Estimat Glomerular Filtration Rate > 60 BUN/Creatinine Ratio 22 Glucose Level 105 70-105 MG/DL Calcium Level 9.3 8.5-10.1 MG/DL Magnesium Level 2.8 H 1.8-2.4 MG/DL Total Bilirubin 0.4 0.1-1.0 MG/DL Aspartate Amino Transf (AST/SGOT) 15 5-34 U/L Alanine Aminotransferase (ALT/SGPT) 19 0-55 U/L Alkaline Phosphatase 61 40-136 U/L Total Protein 6.9 6.4-8.2 GM/DL Albumin 3.8 3.2-4.5 GM/DL TSH [place] Testing 3.39 0.35-4.94 UIU/ML Serum Test, Qualitative NEGATIVE NEGATIVE Serum Alcohol < 10 <10 MG/DL Urine Color YELLOW Urine Clarity SLIGHTLY CLOUDY Urine pH 6.5 5-9 Urine Specific [place] 1.010 L 1.016-1.022 Urine Protein NEGATIVE NEGATIVE Urine Glucose (UA) NEGATIVE NEGATIVE Urine Ketones NEGATIVE NEGATIVE Urine Nitrite NEGATIVE NEGATIVE Urine Bilirubin NEGATIVE NEGATIVE Urine Urobilinogen NORMAL NORMAL MG/DL Urine Leukocyte Esterase NEGATIVE NEGATIVE Urine RBC (Auto) NEGATIVE NEGATIVE Urine RBC NONE /HPF Urine WBC NONE /HPF Urine Squamous Epithelial Cells 10-25 H /HPF Urine Crystals NONE /LPF Urine Bacteria TRACE /HPF Urine Casts NONE /LPF Urine Mucus SMALL H /LPF Urine Culture Indicated NO Urine Opiates Screen NEGATIVE NEGATIVE Urine Oxycodone Screen NEGATIVE NEGATIVE Urine Methadone Screen NEGATIVE NEGATIVE Urine Propoxyphene Screen NEGATIVE NEGATIVE Urine Barbiturates Screen NEGATIVE NEGATIVE Ur Tricyclic Antidepressants Screen NEGATIVE NEGATIVE Urine Phencyclidine Screen NEGATIVE NEGATIVE Urine Amphetamines Screen NEGATIVE NEGATIVE Urine Methamphetamines Screen NEGATIVE NEGATIVE Urine Benzodiazepines Screen POSITIVE H NEGATIVE Urine Cocaine Screen NEGATIVE NEGATIVE Urine Cannabinoids Screen POSITIVE H NEGATIVE My Orders Orders - ALLEN LLOYD DO Saline Lock/Iv-Start (04/17/17 23:24) Ekg Tracing (04/17/17 23:24) O2 (04/17/17 23:24) Alcohol (04/17/17 23:24) Cbc With Automated Diff (04/17/17 23:24) Comprehensive Metabolic Panel (04/17/17 23:24) Drug Screen Stat (Urine) (04/17/17 23:24) Hcg,Qualitative Serum (04/17/17 23:24) Magnesium (04/17/17 23:24) Thyroid Analyzer (04/17/17 23:24) Ua Culture If Indicated (04/17/17 23:24) Saline Lock/Iv-Start (04/17/17 23:24) Vital Signs/I&O Vital Sign - Last 12Hours 04/17/17 23:22 Pulse 68 Resp 24 B/P (MAP) 132/84 (100) Pulse Ox 99 Capillary Refill : Progress Note : Progress Note UNEVENTFUL ER STAY PT RESTED QUIETLY FOR REMAINDER OF ER STAY BOTH PT AND BOYFRIEND REQUEST THAT BOTTLE OF #36 VALIUM BE DISPOSED OF --PILLS COUNTED IN FRONT OF PT AND BOYFRIEND AND DISCARDED IN PROPER CONTAINER IN ER, WITNESSED BY STAFF. 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 Patient Instructions: Seizures, Adult (DC) Add. Discharge Instructions: HOME, REST LOTS OF CLEAR LIQUIDS TAKE YOUR MEDICATIONS EXACTLY PRESCRIBED, DO NOT MISS DOSES OF MEDICATIONS FOLLOW UP WITH NEUROLOGIST SCHEDULED, OR SOONER IF POSSIBLE FOLLOW UP WITH YOUR FAMILY DR NEXT WEEK FOR FURTHER CARE ALLEN LLOYD DO Apr 17, 2017 23:48
[2017-04-18 00:22] LABS: BASOPHILS % (AUTO) 0 % (0-10); EOSINOPHILS # (AUTO) 0.4 10^3/uL (0.0-0.3); EOSINOPHILS % (AUTO) 4 % (0-10); LYMPHOCYTES # (AUTO) 2.1 X 10^3 (1.0-4.0); LYMPHOCYTES % (AUTO) 24 % (12-44); MEAN CORPUSCULAR HEMOGLOBIN 29 PG (25-34); MEAN CORPUSCULAR HGB CONC 34 G/DL (32-36); MEAN CORPUSCULAR VOLUME 86 FL (80-99); MEAN PLATELET VOLUME 10.6 FL (7.4-10.4); MONOCYTES # (AUTO) 0.8 X 10^3 (0.0-1.0); MONOCYTES % (AUTO) 9 % (0-12); NEUTROPHILS # (AUTO) 5.4 X 10^3 (1.8-7.8); NEUTROPHILS % (AUTO) 62 % (42-75); PLATELET COUNT 209 10^3/uL (130-400); RED BLOOD COUNT 4.56 10^6/uL (4.35-5.85); WHITE BLOOD COUNT 8.7 10^3/uL (4.3-11.0)
[2017-04-18] MEDS ORDERED: LAMO200T (00:22)
[2017-04-18] MEDS ORDERED: BACL20TA (00:22)
[2017-04-18] MEDS ORDERED: OMEP40CA36 (00:22)
[2017-04-18] MEDS ORDERED: VILA40TA (00:22)
[2017-04-18] MEDS ORDERED: ARIP2TAB11 (00:22)
[2017-04-18 00:40] LABS: ALANINE AMINOTRANSFERASE 19 U/L (0-55); ALBUMIN 3.8 GM/DL (3.2-4.5); ALCOHOL < 10 MG/DL (<10); ANION GAP 9 MMOL/L (5-14); ASPARTATE AMINO TRANSFERASE 15 U/L (5-34); BILIRUBIN,TOTAL 0.4 MG/DL (0.1-1.0); BLOOD UREA NITROGEN 17 MG/DL (7-18); BUN/CREATININE RATIO 22; CALCIUM 9.3 MG/DL (8.5-10.1); CARBON DIOXIDE 26 MMOL/L (21-32); CHLORIDE 105 MMOL/L (98-107); CREATININE SERUM 0.78 MG/DL (0.60-1.30); GFR ESTIMATED > 60; GLUCOSE 105 MG/DL (70-105); MAGNESIUM 2.8 MG/DL (1.8-2.4); POTASSIUM 3.7 MMOL/L (3.6-5.0); SODIUM 140 MMOL/L (135-145); TOTAL PROTEIN 6.9 GM/DL (6.4-8.2)
[2017-04-18 01:08] LABS: BILIRUBIN,URINE NEGATIVE (NEGATIVE); KETONES,URINE NEGATIVE (NEGATIVE); LEUKOCYTE ESTERASE ,URINE NEGATIVE (NEGATIVE); NITRITE,URINE NEGATIVE (NEGATIVE); PH,URINE 6.5 (5-9); PROTEIN,URINE NEGATIVE (NEGATIVE); UROBILINOGEN,URINE NORMAL (NORMAL)
[2017-04-18 01:37] VITALS: BP 105/62
[2017-04-18] MEDS ORDERED: LORazepam INJ 2 MG/ML (ATIVAN) VIAL IVP ONE (01:45)
== END 2017-04-18 01:45 | disposition home or self-care (01) ==
LOC: ER 23:24
DX: G40.89 Other seizures (principal); F41.9 Anxiety disorder, unspecified; K21.9 Gastro-esophageal reflux disease without esophagitis; F15.90 Other stimulant use, unspecified, uncomplicated; F17.210 Nicotine dependence, cigarettes, uncomplicated; Z87.59 Personal history of other complications of pregnancy, childbirth and the puerperium; Z90.710 Acquired absence of both cervix and uterus
CPT/HCPCS: 36415; 80053; 80306; 80320; 81000; 83735; 84443; 84703; 85025; 93005